=== PATIENT | female | born 1995 | race Caucasian/White ===

== ENCOUNTER 2024-09-14 15:50 | Outpatient (CLI) | payer BC, SELFPAY ==
--- OUTSIDE RECORDS SUMMARY | 2024-09-14 17:29 | XMS_ITS | Data Portability ---
Author Organization [facility] [place] Address [address] [place] [address] Care Team Providers Care Lighter Captain Name Role Phone JALEEL DE LEON Primary Care Provider Assessment Encounter Date Assessment Date Assessment LastModified by Organization Details LastModified Time 04/27/2024 04/27/2024 Annual gynecological exam performed. Patient will come back in a year unless there are new symptoms. [email or web address] Not available 04/27/2024 09:54:50 Plan of Treatment Reminders Order Date Submit Date Provider Last Modified By Organization Details Last Modified Time Details Appointments U/S OB SNEAK PEAK 2024 08:30A M ULTRASOUND Not available Not available Not available OB SCREEN 2024 09:00A M JACK RHODES MD Not available Not available Not available Lab pregnan cy test, urine 2024 025 [place], [address], [place], [address], 08/11/2024 11:22:58 anti-mu llerian hormone (amh), serum 2024 025 [facility] (Lab), [address], [place], [address], 08/04/2024 19:44:17 FSH (follic le-stim ulating hormone ), serum 2024 025 [facility] (Lab), [address], [place], [address], 08/04/2024 19:44:19 estradi ol, serum 2024 025 [facility] (Lab), [address] [place], [address], 08/04/2024 19:44:17 TSH, serum, reflex free T4 2024 025 [facility] (Lab), [address], [place], [address], 08/03/2024 04:08:37 HbA1c (hemogl obin A1c), blood 2024 025 [facility] (Lab), [address] [place], [address], 08/04/2024 19:44:17 vitamin D, 25-hydr oxy, total, serum 2024 025 [facility] (Lab), [address] [place], [address], 08/03/2024 04:08:38 prolact in, serum 2024 025 [facility] (Lab), [address] [place], [address], 08/04/2024 19:44:18 lh (lutein izing hormone ), serum 2024 025 [facility] (Lab), [address] [place], [address], 08/04/2024 19:44:18 17-hydr oxyprog esteron e, QN, serum 2024 025 [facility] (Lab), [address] [place], [address], 08/04/2024 19:44:20 testost erone free/te stoster one total, ratio, serum 2024 025 [facility] (Lab), [address] [facility], [place], [address], 08/04/2024 19:44:19 Referral None recorde d. Procedures None recorde d. Surgeries None recorde d. Imaging US, saline infused uterus 2024 025 OLIVIA Not available 09/13/2024 04:01:44 US, transva ginal 2024 025 [email or web address] [place] [address], [address], [place], [address], 08/15/2024 09:33:26 Medication Orders None recorde d. Patient TargetsNo targets recorded. Patient InstructionsNo instructions recorded. Reason for Referral None Reported. Results Created Date Observation Date Name Description Value Unit Range Abnormal Flag Note LastModifiedBy Organization Detail LastModifiedTime 04/27/20 24 04/27/2024 IMAGE GUIDE D PAP, REFLE X HPV IF ASCUS ONLY image guided Pap, reflex HPV ASCUS only SEE RESULT S BELOW CASE REPOR T: Cytol ogy Gynec ologi beena Repor t Case: [id number] Autho rilonnien g Provi nicole: Genevieve Carranza MD Colle cted: 04/27 1003 Order ing Locat ion: [place] Patho logy Recei heydi: 04/28 0935 First Scree n: Beata Durant, CT Speci men: Scree jim Pap - Image d, Cervi x STATE MENT OF ADEQU ACY: Satis facto ry for evalu ation Trans forma tion zone compo nent prese nt ----- ----- ----- ----- ----- ----- ----- ----- ----- ----- ----- ----- ----- ----- ----- ----- ----- ---- FINAL DIAGN OSIS: Negat roby for Intra epith eliadonay nam or Ming palacios (NIL) . Elect zac yu d by Beata Durant, CT on 05/04 at 11:16 AM ----- ----- ----- ----- ----- ----- ----- ----- ----- ----- ----- ----- ----- ----- ----- ----- ----- ---- COMME NT: This speci men was revie wed by a Cytot echno logis t and/o r Patho logis t (as indic ated in this repor t) after evalu ation using the Thinp rep Imagi ng Syste m. CLINI BEENA INFOR MATIO N: Menst rual Statu s: LMP (if appli cable ): Clini beena Histo ry/Pr eviou s Pap: Type of Neopl emerson (if appli cable ): Signi fican t Clini beena Findi ngs: Other Histo ry: Hormo trent (if appli cable ): PAP EDUCA MARVEL L NOTE: The Pap Test is a scree jim test with an inher ent false negat roby rate. Liqui d-bas ed sampl ing may decre ase, but will not elimi bart, false negat roby resul ts. A negat roby resul t does not precl ude the prese nce and/o r devel opmen t of disea se, since the prese nce of abnor mal cells in the sampl e depen ds on the locat ion of the lesio n and sampl ing techn ique. Artie nued regul ar scree jim is the best metho d of cance r preve ntion . If repor liset cytol ogic findi ng do not corre late with physi beena and/o r histo rical findi ngs, furth er inves tigat ion is recom kendell d, as enmanueli josh toribio nted. Not Available [facility] (Lab) [address], [place], [address], 05/04/2024 12:19:59 07/27/19 25 07/27/2024 HEMOG LOBIN A1C hemoglobin A1C 5.1 % 4.0-5. 6 The Ameri can Diabe smitha Assoc iatio n recom mends that a prima ry goal of thera py shiv d be a HBA1C of < 7% and that physi cians shoul d reeva luate the treat ment regim en in patie nts with HBA1C value s consi stent ly > 8%. <5.7% Salome l 5.7 - 6.4% Incre ased risk for diabe smitha >=6.5 % Diagn ostic of diabe smitha <7.0% Goal of thera py >8.0% Actio n sugge sted Not Available [facility] (Lab) [address], [place], [address], 08/04/2024 19:44:16 07/27/19 25 07/27/2024 ANTIM ULLER ANA HORMO NE (AMH) anti-mulleri an hormone (amh) 8.85 NG/mL Femal e Refer ence Range s 20-24 years : 1.22 - 11.70 ng/mL 25-29 years : 0.89 - 9.85 ng/mL 30-34 years : 0.58 - 8.13 ng/mL 35-39 years : 0.15 - 7.49 ng/mL 40-44 years : 0.03 - 5.47 ng/mL The follo wing resul ts were obtai sheree with the Elecs ys assay . Resul ts from assay s of other manuf actur es canno t be used inter [facility] ably. Not Available [facility] (Lab) [address] [facility], [place], [address], 08/04/2024 19:44:17 07/27/19 25 07/27/2024 ESTRA DIOL estradiol 221.0 pg/mL This assay was perfo rmed using [employer] ratio n reage nts and test kits. Value s obtai sheree with other assay metho ds or kits canno t be used inter [facility] eably . Femal e Estra diol Range s: Folli cular phase 12.4- 233 pg/mL Ovula tion phase 41.0- 398 pg/mL Lutea l phase 22.3- 341 pg/mL Postm enopa usal <5-13 8 pg/mL Healt hy Pregn ant Women 1st Trime ster 154-3 243 pg/mL 2nd Trime ster 1561- 20350 pg/mL 3rd Trime ster 8525- >3000 0 pg/mL Not Available [facility] (Lab) [address] [place], [address], 08/04/2024 19:44:17 07/27/19 25 07/27/2024 PROLA CTIN prolactin, total 13.50 NG/mL 4.79-2 3.30 This assay was perfo rmed using [employer] ratio n reage nts and test kits. Value s obtai sheree with other assay metho ds or kits canno t be used inter [facility] . Not Available [facility] (Lab) [address] [place], [address], 08/04/2024 19:44:18 07/27/19 25 07/27/2024 LH (LUTE NIZIN G HORMO NE) LH 17.7 mIU/m L This assay was perfo rmed using [employer] ratio n reage nts and test kits. Value s obtai sheree with other assay metho ds or kits canno t be used inter [facility] . Femal es Mid-F ollic ular: 2.4-1 2.6 mIU/m L Mid-C ycle: 14.0- 95.6 mIU/m L Mid-L uteal : 1.0-1 1.4 mIU/m L Postm enopa use: 7.7-5 8.5 mIU/m L Not Available [facility] (Lab) [address] [place], [address], 08/04/2024 19:44:18 07/27/19 25 07/27/2024 FSH FSH 5.6 mIU/m L This assay was perfo rmed using [employer] ratio n reage nts and test kits. Value s obtai sheree with other assay metho ds or kits canno t be used inter [facility] . Femal es Folli cular : 3.5-1 2.5 mIU/m L Ovula tion: 4.7-2 1.5 mIU/m L Lutea l: 1.7-7 .7 mIU/m L Postm enopa use: 25.8- 134.8 mIU/m L Not Available [facility] (Lab) [address], [place], [address], 08/04/2024 19:44:19 07/27/1907/27/2024 TESTO STERO NE, FREE( DIALY SIS) AND TOTAL (LC/M S/MS) testosterone , total 52 NG/dL 2-45 high For addit ional richard barnett e refer to http: //leslie nam.que stdia gnost ics.c om/fa q/ Total Testo stero neLCM SMSFA Q165 (This link is being provi ded for infoamanda brink/ educa marvel l purpo ses only. ) This test was devel oped and its elena tical perfo rmanc e chuck cteri stics have been deter mined by [employer] David ls [facility], [place]. It has not been clear ed or appro heydi by the U.S. Food and Drug Admin istra tion. This assay has been valid ated pursu ant to the CLIA regul ation s and is used for clini beena purpo ses. Not Available [facility] (Lab) [address], [place], [address], 08/04/2024 19:44:19 07/27/19 25 07/27/2024 TESTO STERO NE, FREE( DIALY SIS) AND TOTAL (LC/M S/MS) testosterone , free 4.3 pg/mL 0.1-6. 4 This test was devel oped and its elena tical perfo rmanc e chuck cteri stics have been deter mined by [employer] David [employer] [place], [place]. It has not been clear ed or appro heydi by the U.S. Food and Drug Admin istra tion. This assay has been valid ated pursu ant to the CLIA regul ation s and is used for clini beena purpo ses. Perfo rming Organ izati on Infor mat n: Site ID: [id number] Name: [employer] carroll walls David aldana Addre ss: [id number] [facility] [place], [place] Direc tor: Eleazar Vásquez MD PhD Not Available [facility] (Lab) [address] [place], [address], 08/04/2024 19:44:19 07/27/19 25 07/27/2024 17-OH PROGE STERO NE 17-hydroxypr ogesterone, lc/MS/MS 72 NG/dL Adult Femal e Refer ence Range s for 17-Hy droxy proge stero ne: Pre-M enopa usal Mid Folli cular : 23-10 2 ng/dL Pre-M enopa usal Surge : 67-34 9 ng/dL Pre-M enopa usal Mid Lutea l: 139-4 31 ng/dL Postm enopa usal Phase : < or = 45 ng/dL Pregn valentín: First Trime ster: 78-45 7 ng/dL Secon d Trime ster: 90-35 7 ng/dL Third Trime ster: 144-5 78 ng/dL This test was devel oped and its elena tical perfo rmanc e chuck cteri stics have been deter mined by [employer] carroll s. It has not been clear ed or appro heydi by FDA. This assay has been valid ated pursu ant to the CLIA regul ation s and is used for clini beena purpo ses. Perfo rming Organ izati on Infor mat n: Site ID: [id number] Name: [facility] carroll s/Magdaleno mónica C-S shabnam [place] , Addre ss: [id number] [place] [address] Direc tor: Franci catalan MD,Ph D,KRISTINE Not Available [facility] (Lab) [address] [place], [address], 08/04/2024 19:44:20 08/11/19 25 08/11/2024 pregn valentín test, urine HCG negati ve Not Available [place] [address], [place], [address], 08/11/2024 11:22:43 09/02/19 25 09/02/2024 PROGE STERO NE progesterone 12.10 NG/mL This assay was perfo rmed using [employer] ratio n reage nts and test kits. Value s obtai sheree with other assay metho ds or kits canno t be used inter [facility] eably . Femal e Proge stero ne Range s: Folli cular phase 0.06- 0.89 ng/mL Ovula tion phase 0.12- 12.00 ng/mL Lutea l phase 1.83- 23.90 ng/mL Postm enopa usal <0.05 -0.13 ng/mL Healt hy Pregn ant Women 1st Trime ster 11.0- 44.30 2nd Trime ster 25.40 -83.3 0 3rd Trime ster 58.70 -214. [address] [facility] (Lab) [address], [place], [address], 09/04/2024 23:59:09 08/11/19 25 08/11/2024 US, trans vagin al No observ ation record ed. [email or web address] [place] [address], [place], [address], 08/11/2024 12:37:38 08/11/19 25 08/11/2024 US, trans vagin al No observ ation record ed. [address], [place], [address], 08/15/2024 23:24:32 Result Notes None recorded. Procedures Surgical History Date Name Laterality Status Provider Name and Address Organization Details Recorded Time SIS completed JACK RHODES MD [address], [place], [address], [place] [facility] 08/15/2024 22:58:22 4 Date of Last Pap Smear completed Rosita Bhavesh [facility] 07/27/2024 14:07:04 3 Dilation and Curettage completed Rosita Bhavesh [facility] 04/27/2024 09:48:11 Imaging Results Imaging Date Name Status LastModified by Organization Details LastModified Time 08/11/2024 [facility]inal [email or web address] [address], [place], [address], 08/11/2024 12:37:38 08/11/2024 US, transvaginal completed [email or web address] [address], [place], [address], 08/15/2024 23:24:32 Procedure Notes None recorded. Medical Equipment None Reported. Allergies No known drug allergies Medications Name Sig Start Date Stop Date Status Note LastModified by Organization Details LastModified Time fluconazole 150 mg tablet TAKE ONE TABLET BY MOUTH, IF SYMPTOMS PERSIST TAKE SECOND TABLET AFTER 72 HOURS. 04/27 completed Not Available Not Available Not Available valacyclovi r 1 gram tablet TAKE 1 TABLET BY MOUTH 3 TIMES A DAY FOR 3 DAYS 04/27 completed Not Available Not Available Not Available spironolact one 100 mg tablet TAKE 1 TABLET BY MOUTH EVERY DAY 04/27 completed Not Available Not Available Not Available valacyclovi r 500 mg tablet TAKE TWO TABLETS BY MOUTH TWICE DAILY FOR SEVEN DAYS. 04/27 completed Not Available Not Available Not Available sulfamethox azole 800 mg-trimetho prim 160 mg tablet TAKE 1 TABLET BY MOUTH TWICE A DAY FOR 7 DAYS 04/27 completed Not Available Not Available Not Available letrozole 2.5 mg tablet TAKE 1 TABLET BY MOUTH EVERY DAY FOR 5 DAYS active Not Available Not Available No t Available doxycycline hyclate 100 mg tablet TAKE 1 TABLET BY MOUTH EVERY DAY WITH FOOD 04/27 completed Not Available Not Available Not Available Alive active Not Available Not Available Not Available Arazlo 0.045 % lotion 04/27 completed Not Available Not Available Not Available Vitals Date Recorded Body weight Body mass index (BMI) Body height Systolic blood pressure Diastolic blood pressure Provider Name and Address Organization Details Last Updated DateTime 04/27/2024 49913.92 g 35.5 kg/m2 157.48 cm 139 mm[Hg] 90 mm[Hg] Rosita [facility] 4 09:57:56 Date Recorded Body height Body mass index (BMI) Body weight Systolic blood pressure Diastolic blood pressure Provider Name and Address Organization Details Last Updated DateTime 07/27/2024 157.48 cm 35.3 kg/m2 82374.33 g 134 mm[Hg] 98 mm[Hg] [facility] 5 14:06:39 Social History Question Answer Notes LastModified by Organizat ion Details LastModified Time What Is Your Level Of Alcohol Consumption? Moderate [email or web address] Information not available 04/27/2024 How Many Years Have You Consumed Alcohol? 7 [email or web address] Information not available 04/27/2024 Are You Blind Or Do You Have Difficulty Seeing? No [email or web address] Information not available 04/27/2024 What Is Your Level Of Caffeine Consumption? Heavy [email or web address] Information not available 04/27/2024 How Much Tobacco Do You Chew? None [email or web address] Information not available 04/27/2024 In The 14 Days Before Symptom Onset, Have You Had Close Contact With A Laboratory-confir med COVID-19 While That Case Was Ill? No [email or web address] Information not available 04/27/2024 In The 14 Days Before Symptom Onset, Have You Had Close Contact With A Person Who Is Under Investigation For COVID-19 While That Person Was Ill? No [email or web address] Information not available 04/27/2024 Have You Been To An Area Known To Be High Risk For COVID-19? No [email or web address] Information not available 04/27/2024 Are You Currently Employed? Yes [email or web address] Information not available 07/27/2024 Are You Deaf Or Do You Have Serious Difficulty Hearing? No [email or web address] Information not available 04/27/2024 What Type Of Diet Are You Following? REGULAR [email or web address] Information not available 04/27/2024 What Is The Highest Grade Or Level Of School You Have Completed Or The Highest Degree You Have Received? 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 Yes [email or web address] Information not available 04/27/2024 Do You Use Protection During Sex? No [email or web address] Information not available 04/27/2024 Do You Use Your Seat Belt Or Car Seat Routinely? Yes Information not available 04/27/2024 Are You Sexually Active? Yes [email or web address] Information not available 07/27/2024 Do You Have Smoke And Carbon Monoxide Detectors In Your Home? Yes [email or web address] Information not available 04/27/2024 How Much Tobacco Do You Smoke? No Information not available 04/27/2024 Do You Feel Stressed (tense, Restless, Nervous, Or Anxious, Or Unable To Sleep At Night)? PB66024-1 [email or web address] Information not available 04/27/2024 Do You Use Any Illicit Or Recreational Drugs? No Information not available 04/27/2024 Do You Use Sunscreen Routinely? Yes [email or web address] Information not available 04/27/2024 Have You Used IV Drugs? No [email or web address] Information not available 04/27/2024 Sex: Unknown Functional Status Question Answer Note LastModified by Organizat ion Details LastModified Time Do you have difficulty walking or climbing stairs? No [email or web address] Information not available 07/27/2024 Are you able to walk? YESWOREST [email or web address] Information not available 04/27/2024 Are you able to care for yourself? Yes [email or web address] Information not available 07/27/2024 Do you have difficulty dressing or bathing? No [email or web address] Information not available 07/27/2024 What is your exercise level? None [email or web address] Information not available 04/27/2024 Mental Status None recorded. Family History Relationship Description Onset Age of this Age Resolved Age Notes LastModified by Organization Details LastModified Time Mother Disorder of thyroid gland [email or web address] Not available 2023 09:48:11 Maternal Aunt Disorder of thyroid gland [email or web address] Not available 2023 09:48:11 Brother Hypercholest erolemia Not available 2023 09:48:11 Paternal Grandfather Heart disease [email or web address] Not available 2023 09:48:11 Medical History Condition Response Anxiety Disorder Y Gynecological History Statement/Question Response Flow Moderate Date of LMP 07/12/2024 On BCP's at Conception? N N Was last menstrual period normal N STIs/STDs N HPV Vaccine Y Duration of Flow (days) 4 Current Control Method None Frequency of Cycle (Q days) 31 Sexually Active? Y None Age of first menstrual cycle 12 Date of Last Pap Smear 04/27/2024 Sexual Problems? N Desired Control Method None LMP Definite N Obstetrics History GPAL:G 1 P 0 0 1 0 Type Value Spontaneous 1 Total 1 Past Encounters Encounter ID Performer Location Encounter Start Date Encounter Closed Date Diagnosis/Indication Diagnosis SNOMED-CT Code Diagnosis ICD10 Code Diagnosis Note [id number] JACK RHODES MD [place] [address] [address] 04/27/2024 09:42:19 04/27/2024 10:49:14 Gynecologic examination 04474586 Z01.419 [facility] woman care- Cervical cancer screening: Pap smear obtained today, will follow up on the results with the patient as they become available- Breast cancer screening: mammogram not indicated- Colon cancer screening: does not qualify- HPV immunizati on: received- STD testing: declined- hereditary cancer screening: does not qualify for testing- discussed PNV while TTC; if no in 1 year could consider workup [id number] JACK RHODES MD [place] [address] [address] 07/27/2024 13:56:24 07/27/2024 14:53:18 Irregular periods 85709892 N92.6 - Differenti al diagnosis of cause of infertilit y includes: oligoovula tion, male factor, structural - We discussed the potential causes of infertilit y and rationale behind testing. We also discussed her reproducti ve potential in the context of her age as well as the risk of aneuploidy .- We discussed her reproducti ve potential in the context of her BMI which is 35. We reviewed that given her BMI >25 her natural fertility could be improved by even just a 5% wt loss.- The patient is asked to complete the following diagnostic work up to include:-- TSH, A1C, Vitamin D, PRL, LH, 17OHP, AMH, FSH and estradiol- - Transvagin al ultrasound with SIS for endometria l cavity assessment , AFC and repeat for dominant follicle- The patient was asked to have her collect a semen analysis.- Discussed the fertile time of the cycle and options for tracking ovulation, including ovulation predictor kits and basal body temperatur e.-- Discussed timed intercours e every other day starting on Day 10 of period through to the next period.-- Discussed using LH surge kits, usually accurate and would recommend intercours e that day and the next day, then can wait until next cycle.-- Discussed ovulation induction would be considered only after behavioral interventi ons were implemente d and after partner completes semen analysis.- Following the return of these test results she is asked to return to the office for further discussion of reproducti ve planning and treatment options [id number] Mary Loyd [place] [address] [address] 08/11/2024 09:26:52 08/11/2024 12:39:53 Female infertility 7340927 N97.9 Z31.9 [id number] JACK RHODES MD [place] [address] [address] 08/11/2024 09:27:06 08/15/2024 10:55:38 Screening procedure 95623926 Z13.9 Irregular periods 098472 07 N92.6 - Differenti al diagnosis of cause of infertilit y includes: oligoovula tion, male factor, structural - We discussed the potential causes of infertilit y and rationale behind testing. We also discussed her reproducti ve potential in the context of her age as well as the risk of aneuploidy .- We discussed her reproducti ve potential in the context of her BMI which is 35. We reviewed that given her BMI >25 her natural fertility could be improved by even just a 5% wt loss.-Labw ork significan t for elevated AMH and testostero ne-- Transvagin al ultrasound demonstrat es normal endometria l cavity however enlarged ovaries- Husbands semen analysis wnl- Workup c/w PCOS; infertilit y likely 2/2 anovulatio n- recommend initiation of letrozole cycle with next menstrual cycle; discussed 5% risk of multiple gestation- patient voices understand ing, will call clinic with CD1 Health Concerns Section Related Observation LastModified by Organization Detai ls LastModified Time None Recorded Concern Status LastModified by Organization Details LastModified Time None Recorded Advance Directives Directive None Recorded Payers Encounter Date Sequence Insurance Name Policy Number Policy Garcia Covered Member ID Garcia Member ID Guarantor Name 04/27/2024 1 [place] [id number] Tito Tamayo [id number] Leelee Tamayo 07/27/2024 1 [place] [id number] Tito Tamayo [id number] Leelee Bonillamers 08/11/2024 1 [place] [id number] Tito Tamayo [id number] Leelee Tamayo 08/11/2024 1 [place] [id number] Tito Tamayo [id number] Leelee Tamayo Notes Date Note Type Note Provider Name and Address Organization Details Recorded Time 04/27/2024 text/html Presents today f or her annual well-woman exam. Denies abnormal vaginal discharge. She is sexually active and denies dyspareunia. She is trying to conceive, has been actively trying since December. She has not noticed any changes or masses in her breasts. LMP10/11/24. Periods are Q31 days and last 6 days. Flow is moderate to heavy, no intermenstrual spotting. Had a D&C last year for missed miscarriage at 6 weeks. No other PMH/PSH. JACK RHODES MD [address], [place], [address], [place] [facility] 04/27/2024 10:49:02 07/27/2024 text/html Presents today f or discussion of infertility. She and her partner have been actively been trying to conceive 7 months. They have used the following methods to help conceive: cycle tracking, about to start OPKs. The patient reports she has previously had regular menstrual periods, however has been abnormal since April. 39 day cycle April-May, 42 day cycle in May-June. LMP 07/12/24, two weeks later than expected, very light. Bleeding prior to that cycle was extremely. She denies a history of extremely painful periods. Previous history includes: miscarriage in 04/2023, did not use any tracking methods or other fertility method. D&C for resolution of . He has not fathered children from previous relationships. He denies a history of childhood illnesses or cancers. He denies family history of autism/MR and infertility. He has not completed a semen analysis. JACK RHODES MD [address], [place], [address], [facility] 07/27/2024 14:52:05 08/11/2024 text/html Patient presents for SIS. JACK RHODES MD [address], [place], [address], [facility] 08/15/2024 23:03:34 OBGyn Episode Ob Episode Information Episode Created Date Number of Fetuses Patient Bloodtype Patient rh Status Prepregnancy Weight lbs Domestic Partner Domestic Partner Phone Father Name [employer] Law Clerk Status 04/27/20 24 1 CLOSED Fetus Data First Name Last Name Admitted to NICU Weight (g) Sex Living Outcome Pediatric Complications Fetus ID Race Codes Race Delivery Type , Spontane ous [id number] Harsh Calculation Initial Harsh Date Initial Exam Date Initial Exam Provider Initial Ultrasound Date Last Menstrual Period Date Ultra Sound Weeks Gestation 0 Eighteen To Twenty Week Harsh Update Ultra Sound Date Fundal Height At Umbil Quickening Date Ultra Sound Latest Weeks Gestation Final Harsh Confirmed By Final Harsh Confirmed Date Final Harsh Date Ultra Sound Latest Days Gestation 0 0 Menstrual History Last Menstrual Date Menses Monthly On Bcp Conception Prior Menses Frequency Hcg Plus Date Menarche Onset Age Delivery Information Delivery Date Delivery Type Labor Anesthesia Weeks Gestation Incision Type Labor Labor Length Hrs Delivered By Post Complications Tubal Sterilization Discharge Date Comments 3 Discharge Information Feeding Method Contraceptive Method Maternal HG B and HCT Levels
--- OUTSIDE RECORDS SUMMARY | 2024-09-14 17:29 | XMS_ITS | Clinical Summary ---
Author Organization [facility] Address [address] [place] [address] Care Team Providers Care Biomedical Equipment Tech Name Role Phone Tari Kennedy NP Primary Care Provider [phone] Allergies No known active allergies Medications No known medications Active Problems Problem Noted Date Diagnosed Date Missed ([facility]) 06/01/2023 Social History Tobacco Use Types Packs/Day Years Used Date Smoking Tobacco: Never Smokeless Tobacco: Never Tobacco Cessation:Counseling Given: Not Answered Alcohol Use Standard Drinks/Week Comments Yes 0 (1 standard drink = 0.6 oz pur e alcohol) occ Comments No Sex and Gender Information Value Date Recorded Sex Assigned at Not on file Legal Sex Female 6:46 PM CDT Gender Identity Not on file Sexual Orientation Not on file Last Filed Vital Signs Vital Sign Reading Time Taken Comments Blood Pressure 110/75 06/01/2023 11:30 AM PAINTER INTERIOR FINISH Pulse 88 06/01/2023 11:15 AM PAINTER INTERIOR FINISH Temperature 36.8 C (98.2 F) 06/01/2023 8:09 AM PAINTER INTERIOR FINISH Respiratory Rate 16 06/01/2023 11:04 AM PAINTER INTERIOR FINISH Oxygen Saturation 98% 06/01/2023 11:29 AM PAINTER INTERIOR FINISH Inhaled Oxygen Concentration - - Weight 81.2 kg (179 lb) 06/01/2023 8:09 AM PAINTER INTERIOR FINISH Height 157.5 cm (5' 2 ) 06/01/2023 8:09 AM PAINTER INTERIOR FINISH Body Mass Index 32.74 06/01/2023 8:09 AM PAINTER INTERIOR FINISH Plan of Treatment Health Maintenance Due Date Last Done Comments Cervical Cancer Screening Pap Smear (Age 21 to 29) Every 3 Years 1995 Cervical Cancer Screening 1995 Annual Physical 12/25/1998 Hepatitis C 12/25/2013 DTaP, Tdap and Td Vaccines (6 - Td or Tdap) 12/18/2020 12/18/2010, 02/21/2002, 05/10/1999, Additional history exists COVID-19 Vaccine ( season) 2024 Influenza Adult (#1) 2024 Hepatitis B Vaccines Completed 08/05/1997, 01/25/1996, 01/01/1996 HPV Vaccines Aged Out No longer eligi ble based on patient's age to complete this topic Meningococcal B Vaccine Aged Out No l onger eligible based on patient's age to complete this topic Meningococcal Vaccine Aged Out No cris maylin eligible based on patient's age to complete this topic Pneumococcal Vaccine: Pediatrics (0 to 5 Years) and At-Risk Patients (6 to 64 Years) Aged Out No longer eligible based on patient's age to complete this topic RSV Immunizations Under 20 Months Aged Out No longer eligible based on patient's age to complete this topic Insurance [facility] Advance Directives * Full Code (Latest Code Status on File) Date Activated Date Inactivated Comments 06/01/2023 11:33 AM 06/01/2023 1:59 PM Care Teams Biomedical Equipment Tech Relationship Specialty Start Date End Date Tari Kennedy NP [address] [place] [address] [place] [address] PCP - General Nurse Practitioner Family 05/20/23
[2024-09-14 18:07] LABS: Beta HCG Quantitative 509.18 mIU/ML
== END 2024-09-14 15:51 | disposition home or self-care (01) ==
LOC: ANHLAB 16:02
PROVIDERS: Visit Provider Obstetrics & Gynecology
DX: N91.2 Amenorrhea, unspecified (principal)
CPT/HCPCS: 36415; 84702

== ENCOUNTER 2024-09-16 11:42 | Outpatient (CLI) | payer BC, SELFPAY ==
--- OUTSIDE RECORDS SUMMARY | 2024-09-16 12:33 | XMS_ITS | Data Portability ---
Author Organization [facility] [place] Address [address] [place] [address] Care Team Providers Care Waiter/Waitress Club Name Role Phone JALEEL DE LEON Primary Care Provider Assessment Encounter Date Assessment Date Assessment LastModified by Organization Details LastModified Time 04/27/2024 04/27/2024 Annual gynecological exam performed. Patient will come back in a year unless there are new symptoms. [email or web address] Not available 04/27/2024 09:54:50 Plan of Treatment Reminders Order Date Submit Date Provider Last Modified By Organization Details Last Modified Time Details Appointments U/S OB SNEAK PEAK 2024 08:30A M ULTRASOUND Not available Not available Not available OB SCREEN 2024 09:00A M JACK RHODES MD Not available Not available Not available Lab pregnan cy test, urine 2024 025 [email or web address] [place], [address], [place], [address], 08/11/2024 11:22:58 anti-mu llerian hormone (amh), serum 2024 025 [facility] (Lab), [address], [place], [address], 08/04/2024 19:44:17 FSH (follic le-stim ulating hormone ), serum 2024 025 [facility] (Lab), [address], [place], [address], 08/04/2024 19:44:19 estradi ol, serum 2024 025 [facility] (Lab), [address] [place], [address], 08/04/2024 19:44:17 TSH, serum, reflex free T4 2024 025 [facility] (Lab), [address], [place], [address], 08/03/2024 04:08:37 HbA1c (hemogl obin A1c), blood 2024 025 [facility] (Lab), [address] [place], [address], 08/04/2024 19:44:17 vitamin D, 25-hydr oxy, total, serum 2024 025 [facility] (Lab), [address] [place], [address], 08/03/2024 04:08:38 prolact in, serum 2024 025 [facility] (Lab), [address] [place], [address], 08/04/2024 19:44:18 lh (lutein izing hormone ), serum 2024 025 [facility] (Lab), [address] [place], [address], 08/04/2024 19:44:18 17-hydr oxyprog esteron e, QN, serum 2024 025 [facility] (Lab), [address] [place], [address], 08/04/2024 19:44:20 testost erone free/te stoster one total, ratio, serum 2024 025 [facility] (Lab), [address], [place], [address], 08/04/2024 19:44:19 Referral None recorde d. Procedures None recorde d. Surgeries None recorde d. Imaging US, saline infused uterus 2024 025 [email or web address] Not available 09/13/2024 04:01:44 US, transva ginal 2024 025 [email or web address] [place], [address], [place], [address], 08/15/2024 09:33:26 Medication Orders None recorde d. [...] as enmanueli josh toribio nted. Not Available [facility] (Lab) [address], [place], [address], 05/04/2024 12:19:59 07/27/19 25 07/27/2024 HEMOG LOBIN [...] >8.0% Actio n sugge sted Not Available [facility] (Lab) [address], [place], [address], 08/04/2024 19:44:16 07/27/19 25 07/27/2024 ANTIM ULLER [...] actur es canno t be used inter [facility] ably. Not Available [facility] (Lab) [address], [place], [address], 08/04/2024 19:44:17 07/27/19 25 07/27/2024 ESTRA DIOL estradiol 221.0 pg/mL This assay was perfo rmed using [employer] ratio n reage nts and test kits. Value s obtai sheree with other assay metho ds or kits canno t be used inter [facility] eably . Femal e Estra diol Range s: Folli cular phase 12.4- 233 pg/mL Ovula tion phase 41.0- 398 pg/mL Lutea l phase 22.3- 341 pg/mL Postm enopa usal <5-13 8 pg/mL Healt hy Pregn ant Women 1st Trime ster 154-3 243 pg/mL 2nd Trime ster 1561- 84840 pg/mL 3rd Trime ster 8525- >3000 0 pg/mL Not Available [facility] (Lab) [address] [place], [address], 08/04/2024 19:44:17 07/27/19 25 07/27/2024 PROLA CTIN prolactin, total 13.50 NG/mL 4.79-2 3.30 This assay was perfo rmed using [employer] ratio n reage nts and test kits. Value s obtai sheree with other assay metho ds or kits canno t be used inter [facility] . Not Available [facility] (Lab) [address] [place], [address], 08/04/2024 19:44:18 07/27/19 25 07/27/2024 LH (LUTE NIZIN G HORMO NE) LH 17.7 mIU/m L This assay was perfo rmed using [employer] ratio n reage nts and test kits. Value s obtai sheree with other assay metho ds or kits canno t be used inter [facility] . Femal es Mid-F ollic ular: 2.4-1 2.6 mIU/m L Mid-C ycle: 14.0- 95.6 mIU/m L Mid-L uteal : 1.0-1 1.4 mIU/m L Postm enopa use: 7.7-5 8.5 mIU/m L Not Available [facility] (Lab) [address] [place], [address], 08/04/2024 19:44:18 07/27/19 25 07/27/2024 FSH FSH 5.6 mIU/m L This assay was perfo rmed using [employer] ratio n reage nts and test kits. Value s obtai sheree with other assay metho ds or kits canno t be used inter [facility] . Femal es Folli cular : 3.5-1 2.5 mIU/m L Ovula tion: 4.7-2 1.5 mIU/m L Lutea l: 1.7-7 .7 mIU/m L Postm enopa use: 25.8- 134.8 mIU/m L Not Available [facility] (Lab) [address], [place], [address], 08/04/2024 19:44:19 07/27/1907/27/2024 TESTO STERO NE, FREE( [...] cteri stics have been deter mined by [employer] David [facility] [employer] [facility], [place]. It has not been clear ed or appro heydi by the U.S. Food and Drug Admin istra tion. This assay has been valid ated pursu ant to the CLIA regul ation s and is used for clini beena purpo ses. Not Available [facility] (Lab) [address], [place], [address], 08/04/2024 19:44:19 07/27/19 25 07/27/2024 TESTO STERO NE, FREE( DIALY SIS) AND TOTAL (LC/M S/MS) testosterone , free 4.3 pg/mL 0.1-6. 4 This test was devel oped and its elena tical perfo rmanc e chuck cteri stics have been deter mined by [employer] David [employer], [place]. It has not been clear ed or appro heydi by the U.S. Food and Drug Admin istra tion. This assay has been valid ated pursu ant to the CLIA regul ation s and is used for clini beena purpo ses. Perfo rming Organ izati on Infor mat n: Site ID: [id number] Name: [employer] carroll walls David aldana Addre ss: [id number] [facility] [place] Direc tor: Eleazar Vásquez MD PhD Not Available [facility] (Lab) [address] [place], [address], 08/04/2024 19:44:19 07/27/19 25 07/27/2024 17-OH PROGE [...] cteri stics have been deter mined by [employer] carroll s. It has not been clear ed or appro heydi by FDA. This assay has been valid ated pursu ant to the CLIA regul ation s and is used for clini beena purpo ses. Perfo rming Organ izati on Infor mat n: Site ID: [id number] Name: [facility] carroll s/Magdaleno mónica C-S shabnam [place] , Addre ss: [id number] [place] [address] Direc tor: Franci catalan MD,Ph D,KRISTINE Not Available [facility] (Lab) [address] [place], [address], 08/04/2024 19:44:20 08/11/19 25 08/11/2024 pregn valentín test, urine HCG negati ve Not Available [place] [address], [place], [address], 08/11/2024 11:22:43 09/02/19 25 09/02/2024 PROGE STERO [...] Trime ster 58.70 -214. 00 Not Available [facility] (Lab) [address], [place], [address], 09/04/2024 23:59:09 08/11/19 25 08/11/2024 US, trans vagin al No observ ation record ed. [email or web address] [place] [address], [place], [address], 08/11/2024 12:37:38 08/11/19 25 08/11/2024 US, trans vagin al No observ ation record ed. [email or web address] [address], [place], [address], 08/15/2024 23:24:32 Result Notes None recorded. Procedures Surgical History Date Name Laterality Status Provider Name and Address Organization Details Recorded Time SIS completed JACK RHODES MD [address], [place], [address], [place] [facility] 08/15/2024 22:58:22 4 Date of Last Pap Smear completed Rosita Bhavesh [facility] 07/27/2024 14:07:04 3 Dilation and Curettage completed Rosita Bhavesh [facility] 04/27/2024 09:48:11 Imaging Results Imaging Date Name Status LastModified by Organization Details LastModified Time 08/11/2024 [facility]inal [email or web address] [address], [place], [address], 08/11/2024 12:37:38 08/11/2024 US, transvaginal completed [email or web address] [address], [place], [address], 08/15/2024 23:24:32 Procedure Notes None recorded. Medical [...] Address Organization Details Last Updated DateTime 04/27/2024 65826.92 g 35.5 kg/m2 157.48 cm 139 mm[Hg] 90 mm[Hg] Rosita [facility] 4 09:57:56 Date Recorded Body height Body mass index (BMI) Body weight Systolic blood pressure Diastolic blood pressure Provider Name and Address Organization Details Last Updated DateTime 07/27/2024 157.48 cm 35.3 kg/m2 26668.33 g 134 mm[Hg] 98 mm[Hg] [facility] 5 14:06:39 Social History Question Answer Notes LastModified by Organizat ion Details LastModified Time What Is Your Level Of Alcohol Consumption? Moderate [email or web address] Information not available 04/27/2024 How Many Years Have You Consumed Alcohol? 7 [email or web address] Information not available 04/27/2024 Are You Blind Or Do You Have Difficulty Seeing? No Information not available 04/27/2024 What Is Your Level Of Caffeine Consumption? Heavy [email or web address] Information not available 04/27/2024 How Much Tobacco Do You Chew? None [email or web address] Information not available 04/27/2024 In The 14 Days Before Symptom Onset, Have You Had Close Contact With A Laboratory-confir med COVID-19 While That Case Was Ill? No [email or web address] Information not available 04/27/2024 In The 14 Days Before Symptom Onset, Have You Had Close Contact With A Person Who Is Under Investigation For COVID-19 While That Person Was Ill? No [email or web address] Information not available 04/27/2024 Have You Been To An Area Known To Be High Risk For COVID-19? No Information not available 04/27/2024 Are You Currently Employed? Yes [email or web address] Information not available 07/27/2024 Are You Deaf Or Do You Have Serious Difficulty Hearing? No Information not available 04/27/2024 What Type Of Diet Are You Following? REGULAR [email or web address] Information not available 04/27/2024 What Is The Highest Grade Or Level Of School You Have Completed Or The Highest Degree You Have Received? 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 Yes [email or web address] Information not available 04/27/2024 Do You Use Protection During Sex? No [email or web address] Information not available 04/27/2024 Do You Use Your Seat Belt Or Car Seat Routinely? Yes [email or web address] Information not available 04/27/2024 Are You Sexually Active? Yes [email or web address] Information not available 07/27/2024 Do You Have Smoke And Carbon Monoxide Detectors In Your Home? Yes Information not available 04/27/2024 How Much Tobacco Do You Smoke? No [email or web address] Information not available 04/27/2024 Do You Feel Stressed (tense, Restless, Nervous, Or Anxious, Or Unable To Sleep At Night)? [id number] [email or web address] Information not available 04/27/2024 Do You Use Any Illicit Or Recreational Drugs? No [email or web address] Information not available 04/27/2024 Do You Use Sunscreen Routinely? Yes [email or web address] Information not available 04/27/2024 Have You Used IV Drugs? No [email or web address] Information not available 04/27/2024 Sex: Unknown Functional Status Question Answer Note LastModified by Organizat ion Details LastModified Time Do you have difficulty walking or climbing stairs? No [email or web address] Information not available 07/27/2024 Are you able to walk? YESWOREST [email or web address] Information not available 04/27/2024 Are you able to care for yourself? Yes [email or web address] Information not available 07/27/2024 Do you have difficulty dressing or bathing? No [email or web address] Information not available 07/27/2024 What is your exercise level? None [email or web address] Information not available 04/27/2024 Mental Status None recorded. Family History Relationship Description Onset Age of this Age Resolved Age Notes LastModified by Organization Details LastModified Time Mother Disorder of thyroid gland [email or web address] Not available 2023 09:48:11 Maternal Aunt Disorder of thyroid gland [email or web address] Not available 2023 09:48:11 Brother Hypercholest erolemia [email or web address] Not available 2023 09:48:11 Paternal Grandfather Heart disease [email or web address] Not available 2023 09:48:11 Medical History Condition [...] SNOMED-CT Code Diagnosis ICD10 Code Diagnosis Note [id number] JACK RHODES MD [place] [address] [address] 04/27/2024 09:42:19 04/27/2024 10:49:14 Gynecologic examination [id number] Z01.419 [facility] woman care- Cervical cancer screening: Pap smear obtained today, will follow up on the results with the patient as they become available- Breast cancer screening: mammogram not indicated- Colon cancer screening: does not qualify- HPV immunizati on: received- STD testing: declined- hereditary cancer screening: does not qualify for testing- discussed PNV while TTC; if no in 1 year could consider workup [id number] JACK RHODES MD [place] [address] [address] 07/27/2024 13:56:24 07/27/2024 14:53:18 Irregular periods [id number] N92.6 - Differenti al diagnosis of cause [...] of reproducti ve planning and treatment options [id number] Mary Loyd [place] [address] [address] 08/11/2024 09:26:52 08/11/2024 12:39:53 Female infertility 6891883 N97.9 Z31.9 [id number] JACK RHODES MD [place] [address] [address] 08/11/2024 09:27:06 08/15/2024 10:55:38 Screening procedure [id number] Z13.9 Irregular periods 156970 07 N92.6 - Differenti al diagnosis of [...] ID Guarantor Name 04/27/2024 1 [place] [id number] Tito Tamayo [id number] 62 Leelee Tamayo 07/27/2024 1 [place] [id number] Tito Tamayo [id number] 62 Leelee [address] 08/11/2024 1 [place] [id number] Tito Tamayo [id number] 62 Leelee Tamayo 08/11/2024 1 [place] [id number] Tito Tamayo [id number] 62 Leelee Tamayo Notes Date Note Type [...] PMH/PSH. JACK RHODES MD [address], [place], [address], [place] [facility] 04/27/2024 10:49:02 07/27/2024 text/html Presents today [...] analysis. JACK RHODES MD [address], [place], [address], [facility] 07/27/2024 14:52:05 08/11/2024 text/html Patient presents for SIS. JACK RHODES MD [address], [place], [address], [facility] 08/15/2024 23:03:34 OBGyn Episode Ob Episode Information Episode Created Date Number of Fetuses Patient Bloodtype Patient rh Status Prepregnancy Weight lbs Domestic Partner Domestic Partner Phone Father Name Footwear Sales Coordinator Status 04/27/20 24 1 CLOSED Fetus Data First Name Last Name Admitted to NICU Weight (g) Sex Living Outcome Pediatric Complications Fetus ID Race Codes Race Delivery Type , Spontane ous [id number] Harsh Calculation Initial Harsh Date Initial Exam [...]
--- OUTSIDE RECORDS SUMMARY | 2024-09-16 12:33 | XMS_ITS | Clinical Summary ---
Author Organization [facility] Address [address] [place] [address] Care Team Providers Care Airline Mechanic Name Role Phone Tari Kennedy NP Primary Care Provider [phone] Allergies No known active allergies Medications No known medications Active Problems Problem Noted Date Diagnosed Date Missed ([facility]) 06/01/2023 Social History Tobacco Use Types Packs/Day [...] Comments Blood Pressure 110/75 06/01/2023 11:30 AM TRACK SERVICE WORKER Pulse 88 06/01/2023 11:15 AM TRACK SERVICE WORKER Temperature 36.8 C (98.2 F) 06/01/2023 8:09 AM TRACK SERVICE WORKER Respiratory Rate 16 06/01/2023 11:04 AM TRACK SERVICE WORKER Oxygen Saturation 98% 06/01/2023 11:29 AM TRACK SERVICE WORKER Inhaled Oxygen Concentration - - Weight 81.2 kg (179 lb) 06/01/2023 8:09 AM TRACK SERVICE WORKER Height 157.5 cm (5' 2 ) 06/01/2023 8:09 AM TRACK SERVICE WORKER Body Mass Index 32.74 06/01/2023 8:09 AM TRACK SERVICE WORKER Plan of Treatment Health Maintenance Due Date [...] patient's age to complete this topic Insurance [facility] [[email or web address]] Advance Directives * Full Code (Latest Code Status on File) Date Activated Date Inactivated Comments 06/01/2023 11:33 AM 06/01/2023 1:59 PM Care Teams Airline Mechanic Relationship Specialty Start Date End Date Tari Kennedy NP [address] [place] [address] [place] [address] PCP - General Nurse Practitioner Family 05/20/23
== END 2024-09-16 11:43 | disposition home or self-care (01) ==
PROVIDERS: Visit Provider Obstetrics & Gynecology
DX: N91.2 Amenorrhea, unspecified (principal)
CPT/HCPCS: 36415; 84702

== ENCOUNTER 2025-03-18 17:15 | Observation (INO) | payer BC, SELFPAY ==
[2025-03-18] VITALS (14 sets, daily range): BP systolic 126–144; BP diastolic 69–88; PULSE 81–96; BMI 37.9
--- NOTE | ~2025-03-18 | US_ITS ---
EXAMINATION: US OB BPP wo non-stress DATE: 03/18/2025 21:14 INDICATION: Vaginal bleeding. TECHNIQUE: Real-time pelvic ultrasound was performed. The interpreting radiologist was not present for the study. COMPARISON: None. FINDINGS: There is a single living fetus in breech presentation. The placenta is anterior. There are a few small hypoechoic regions in the placenta. cardiac activity and movement are demonstrated. heart rate is 127 beats per minute (bpm). MESFIN equals 15.95 Biophysical profile performed by the technologist: breathing (30 sec sustained breathing in 30 minutes): 2 out of 2 movement (3 gross body movements in 30 minutes): 2 out of 2 tone (one episode of [id number] limb movement): 2 out of 2 Amniotic fluid pocket (2 cm): 2 out of 2 Total score: 8 out of 8 IMPRESSION: 1. Single living intrauterine in breech presentation with heart rate of 127 [bpm. 2. Placenta is anterior with a few small indeterminate hypoechoic regions within the placenta. Follow-up is recommended. 3. Biophysical profile 8 out of 8. Reviewed, dictated and finalized at location Q. IMPRESSION: 1. Single living intrauterine in breech presentation with heart rate of 127 [bpm. 2. Placenta is anterior with a few small indeterminate hypoechoic regions with in the placenta. Follow-up is recommended. 3. Biophysical profile 8 out of 8.
--- OUTSIDE RECORDS SUMMARY | 2025-03-18 17:22 | XMS_ITS | Clinical Summary ---
Author Organization [facility] Address [address] [place] [address] Care Team Providers Care Carpet Journeyman Name Role Phone Tari Kennedy NP Primary Care Provider [phone] Allergies No known active allergies Medications No known medications Active Problems Problem Noted Date Diagnosed Date Missed ([facility]) 06/01/2023 Social History Tobacco Use [...] Comments Blood Pressure 110/75 06/01/2023 11:30 AM SUPERVISORY TRAINING SPECIALIST Pulse 88 06/01/2023 11:15 AM SUPERVISORY TRAINING SPECIALIST Temperature 36.8 C (98.2 F) 06/01/2023 8:09 AM SUPERVISORY TRAINING SPECIALIST Respiratory Rate 16 06/01/2023 11:04 AM SUPERVISORY TRAINING SPECIALIST Oxygen Saturation 98% 06/01/2023 11:29 AM SUPERVISORY TRAINING SPECIALIST Inhaled Oxygen Concentration - - Weight 81.2 kg (179 lb) 06/01/2023 8:09 AM SUPERVISORY TRAINING SPECIALIST Height 157.5 cm (5' 2) 06/01/2023 8:09 AM SUPERVISORY TRAINING SPECIALIST Body Mass Index 32.74 06/01/2023 8:09 AM SUPERVISORY TRAINING SPECIALIST Plan of Treatment Health Maintenance Due Date Last Done Comments Cervical Cancer Screening Pap Smear (Age 21 to 29) Every 3 Years 1995 Cervical Cancer Screening 1995 Annual Physical 12/25/1998 Hepatitis C 12/25/2013 DTaP, Tdap and Td Vaccines (6 - Td or Tdap) 12/18/2020 12/18/2010, 02/21/2002, 05/10/1999, Additional history exists HPV Vaccines (1 - 3-dose SCDM series) 12/25/2022 COVID-19 Vaccine ( season) 2025 Hepatitis B Vaccines Completed 08/05/1997, 01/25/1996, 01/01/1996 Meningococcal B Vaccine Aged Out No l onger eligible based on patient's age to complete this topic Meningococcal Vaccine Aged Out No cris maylin eligible based on patient's age to complete this topic Pneumococcal Vaccine: Pediatrics (0 to 5 Years) and At-Risk Patients (6 to 49 Years) Aged Out No longer eligible based on patient's age to complete this topic RSV Immunizations Under 20 Months Aged Out No longer eligible based on patient's age to complete this topic Insurance [facility] Advance Directives * Full Code (Latest Code Status on File) Date Activated Date Inactivated Comments 06/01/2023 11:33 AM 06/01/2023 1:59 PM Care Teams Carpet Journeyman Relationship Specialty [place] [address] [place] [address] [place] [id number] PCP - General Nurse Practitioner Family 05/20/23
--- NOTE | 2025-03-18 17:37 | OBADM ---
This patient, Leelee Tamayo, admitted to the OB room OB Post 116 for observation. Patient/family oriented to hospital policies and general routines including ID bracelet, bed and alarms, visiting hours, pain management, procedures, bathroom and other care routines, personal items, smoking policy, room service/diet, and visiting hours. Patient/Family are encouraged to report perceived risks to care and to ask questions if they do not understand what they are told or what they should do.
--- NOTE | 2025-03-18 21:37 | PC.NURSE ---
Call placed to Dr. Méndez, reported US results, FHR, CTX, Vitals. Order to d/c pt home undelivered in stable condition. Pt to follow up with Dr. Méndez thursday.
--- NOTE | 2025-03-18 21:58 | PC.NURSE ---
Pt discharged home undelivered in stable condition per order from Dr. Méndez. Discharge instructions explained and given to pt, pt stated understanding. Per Dr. Méndez, pt to follow up Thursday morning @ 0900 in his office. Pt stated understanding, all questions and concerns answered. Pt ambulated of out department with all belongings. S.O @ pt side.
--- NOTE | 2025-03-18 22:02 | PC.NURSE ---
Pt discharged home undelivered in stable condition per order from Dr. Méndez. Discharged instructions reviewed and given to pt. Pt instructed per Dr. Méndez to return to his office @ 0900 on Thursday. Pt stated understanding, all questions and concerns answered. Pt ambulated out of department with all belongings. S.O @ pt side.
--- NOTE | 2025-04-11 10:19 | PM.OBTRLD ---
OB - Triage/Final Diagnosis Visit Information Comments/Additional reasons for admission: I have assessed the risk for this patient, Leelee Tamayo, and determined that she would benefit from observation care. Final Diagnosis (1) Vaginal bleeding during : Code(s): O46.90 - Antepartum hemorrhage, unspecified, unspecified trimester Status: Acute
== END 2025-03-18 21:58 | disposition home or self-care (01) ==
PROVIDERS: Admitting Provider Obstetrics & Gynecology; Visit Provider Obstetrics & Gynecology
DX: O46.93 Antepartum hemorrhage, unspecified, third trimester (principal); Z3A.31 31 weeks gestation of pregnancy
CPT/HCPCS: 76819; G0378; G0379

== ENCOUNTER 2025-05-04 13:33 | Outpatient (CLI) | payer BC, SELFPAY ==
[2025-05-04] VITALS (11 sets, daily range): BP systolic 132–155; BP diastolic 78–99; PULSE 79–89; BMI 38.0
[2025-05-04 14:17] LABS: Add Urine Microscopic? NO; Appearance Urine Clear (Clear); Glucose Urine UA Negative (Negative); Hematocrit 30.8 % (37.0-47.0); Hemoglobin 9.8 g/dL (12.0-15.0); Immature Granulocyte Percent A 0.4 % (0-0.5); Leukocyte Esterase Ur Negative LEU/UL (Negative); Lymphocytes Absolute Auto 1.69 K/mm3 (0.9-3.2); Mean Corpuscular HGB Conc 31.8 g/dl (32-36); Mean Corpuscular Hemoglobin 25.1 pg (26-34); Mean Corpuscular Volume 78.8 fl (80-100); Nitrate Urine Negative (Negative); Nucleated Red Blood Cells Absolute Auto 0.000 K/mm3 (0.0-0.012); Nucleated Red Blood Cells Perc 0.0 % (0.0-0.2); Platelet Count Result 192 k/mm3 (150-375); Red Blood Count 3.91 M/mm3 (4.2-5.4); Specific Grav Ur 1.008 (1.001-1.035); White Blood Count 7.9 K/mm3 (4.5-10.0)
[2025-05-04 14:30] LABS: Alanine Aminotransferase 13 U/L (6-35); Albumin Level 3.5 g/dL (3.5-5.1); Alkaline Phosphatase 126 U/L (38-126); Anion Gap 7 mmol/L (4-12); Aspartate Amino Transferase 19 U/L (14-36); Bilirubin,Total 0.3 mg/dL (0.2-1.3); Blood Urea Nitrogen 5 mg/dL (7-17); Calcium 8.8 mg/dL (8.4-10.2); Carbon Dioxide 20 mmol/L (22-30); Chloride 106 mmol/L (98-107); Estimated CRCL calculation 134 ml/min; Estimated Glomerular Filt Rate > 60; Glucose 100 mg/dL (65-110); Potassium 3.9 mmol/L (3.4-5.0); Sodium 133 mmol/L (137-145); Total Protein 6.7 g/dL (6.3-8.2); Uric Acid 4.7 mg/dL (2.5-7.5)
--- OUTSIDE RECORDS SUMMARY | 2025-05-04 14:38 | XMS_ITS | Data Portability ---
Author Organization '[facility] [place] Address [address] [place] [address] [place] [address] Care Team Providers Care Senior Engineering Team Leader Name Role Phone JALEEL DE LEON Primary Care Provider Assessment No assessment recorded. Plan of Treatment Reminders Order Date Submit Date Provider Last Modified By Organization Details Last Modified Time Details Appointments U/S OB BPP 2024 09:00A M ULTRASOUND Not available Not available Not available NST 2024 09:30A M NST SCHEDULE Not available Not available Not available OB ROUTINE 2024 10:00A M JACK RHODES MD Not available Not available Not available INDUCTI ON 2024 04:00P M JACK RHODES MD Not available Not available Not available U/S OB BPP 2024 03:30P M ULTRASOUND Not available Not available Not available NST 2024 04:00P M NST SCHEDULE Not available Not available Not available OB ROUTINE 2024 04:30P M JACK RHODES MD Not available Not available Not available Lab None recorde d. Referral None recorde d. Procedures None recorde d. Surgeries None recorde d. Imaging non-str ess test 2024 025 [email or web address] [place], [address], [place], [address], 05/02/2025 15:38:27 US, obstetr ic, biophys ical profile + non-str ess test 2024 025 [email or web address] [place], [address], [place], [address], 05/01/2025 16:55:00 non-str ess test 2024 OLIVIA [place], [address], [place], [address], 04/25/2025 18:05:03 US, obstetr ic, follow- up 2024 025 [address], [place], [address], 04/25/2025 19:45:15 US, obstetr ic, biophys ical profile + non-str ess test 2024 025 [address], [place], [address], 04/25/2025 19:45:15 Medication Orders None recorde d. Patient TargetsNo targets recorded. Patient InstructionsNo instructions recorded. Reason for Referral None Reported. Results Created Date Observation Date Name Description Value Unit Range Abnormal Flag Note LastModifiedBy Organization Detail LastModifiedTime 04/26/2004/26/2025 CULTU RE: GROUP B STREP SCREE N, REFLE X SUSCE PTIBI LITY result report SEE RESULT S BELOW Test: Cultu re: Group B Strep , Refle x Susce ptibi lity ([facility] ) Speci men Sourc e: Vagin a/Rec lupe Speci men Type: Vagin al/Re ctal Speci men Date: 04/26 1341 Resul t Date: 04/29 1451 Resul t Statu s: Final resul t Abnor mal: No Resul ting Lab: [facility] [address] [facility] [address] Tel: CULTU RE ----- ----- ----- --- No Group B strep isola liset at 2 days (palmer ctive broth enhan cemen t) Not Available [facility] (Lab) [address], [place], [address], 04/29/2025 15:53:56 03/27/2003/27/2025 US, obste tric, follo w-up No observ ation record ed. [email or web address] [place] [address], [place], [address], 03/27/2025 13:07:17 03/27/20 25 03/27/2025 US, obste tric, bioph ysica l profi le + non-s tress test No observ ation record ed. [email or web address] [place] [address], [place], [address], 03/27/2025 13:07:42 03/27/20 25 03/27/2025 US, obste tric, follo w-up No observ ation record ed. [email or web address] [address] [facility], [place], [address], 03/27/2025 10:39:08 03/27/2003/27/2025 non-s tress test No observ ation record ed. [email or web address] [place] [address], [place], [address], 03/27/2025 11:15:38 03/27/20 non-s tress test No observ ation record ed. [email or web address] [place] [address], [place], [address], 03/27/2025 11:06:00 04/03/20 25 04/03/2025 US, obstjorge tric, bioph ysica l profi le + non-s tress test No observ ation record ed. [email or web address] [place] [address], [place], [address], 04/03/2025 18:27:14 04/03/20 25 04/03/2025 US, obste tric, bioph ysica l profi le + non-s tress test No observ ation record ed. [address], [place], [address], 04/04/2025 18:59:15 04/03/20 25 04/03/2025 non-s tress test No observ ation record ed. OLIVIA [place] [address], [place], [address], 04/04/2025 10:33:24 04/03/20 25 non-s tress test No observ ation record ed. [email or web address] [place] [address], [place], [address], 04/03/2025 11:35:14 04/10/20 25 04/11/2025 US, obste tric, bioph ysica l profi le + non-s tress test No observ ation record ed. [email or web address] [place] [address], [place], [address], 04/11/2025 12:31:31 04/10/2004/10/2025 US, obste tric, bioph ysica l profi le + non-s tress test No observ ation record ed. [email or web address] [address], [place], [address], 04/10/2025 14:16:39 04/10/20 25 04/10/2025 non-s tress test No observ ation record ed. [email or web address] [place] [address], [place], [address], 04/10/2025 14:16:00 04/10/20 25 non-s tress test No observ ation record ed. [place] [address], [place], [address], 04/10/2025 14:16:00 04/18/2004/18/2025 US, obste tric, bioph ysica l profi le + non-s tress test No observ ation record ed. [email or web address] [place] [address], [place], [address], 04/18/2025 18:03:02 04/18/2004/18/2025 US, obste tric, bioph ysica l profi le + non-s tress test No observ ation record ed. [address], [place], [address], 04/21/2025 01:47:31 04/18/2004/18/2025 non-s tress test No observ ation record ed. [email or web address] [place] [address], [place], [address], 04/19/2025 16:02:09 04/18/20 non-s tress test No observ ation record ed. [email or web address] [place] [address], [place], [address], 04/18/2025 17:19:05 04/25/2004/25/2025 US, obste tric, follo w-up No observ ation record ed. [email or web address] [place] [address], [place], [address], 04/25/2025 18:00:59 04/25/2004/25/2025 US, obste tric, bioph ysica l profi le + non-s tress test No observ ation record ed. [email or web address] [place] [address], [place], [address], 04/25/2025 18:00:41 04/25/2004/25/2025 US, obste tric, follo w-up No observ ation record ed. [email or web address] [address], [place], [address], 04/25/2025 19:59:27 04/25/2004/26/2025 non-s tress test No observ ation record ed. [email or web address] [place] [address], [place], [address], 04/26/2025 12:42:17 04/25/20 non-s tress test No observ ation record ed. [email or web address] [place] [address], [place], [address], 04/25/2025 18:05:07 05/01/2005/01/2025 US, obste tric, bioph ysica l profi le + non-s tress test No observ ation record ed. [email or web address] [place] [address], [place], [address], 05/01/2025 11:27:23 05/01/2005/01/2025 US, obste tric, bioph ysica l profi le + non-s tress test No observ ation record ed. [email or web address] [address], [place], [address], 05/01/2025 21:15:25 05/02/2005/02/2025 non-s tress test No observ ation record ed. OLIVIA [place] [address], [place], [address], 05/02/2025 17:00:00 05/02/2005/01/2025 non-s tress test No observ ation record ed. [email or web address] Not Available 2024 15:39:46 05/02/20 non-s tress test No observ ation record ed. [email or web address] Not Available 2024 15:39:46 Result Notes None recorded. Problems Name Problem SNOMED Code Status Onset Date Resolution Date Notes Provider Name and Address Organization Details Recorded Time 00934218 Active 2024 [email or web address] 10:[facility]46 Chronic hypertens ion complicat ing AND/OR reason for care during 27197962 Active 2024 - elevated BP in office at 24 weeks, asymptomat ic - on chart review, multiple elevated BP outside of - baseline labs ordered - plan for 32 week testing JACK RHODES MD [address], [place], [address], [facility] 5 11:42:33 Problem Notes None recorded. Procedures Surgical History Date Name Laterality Status Provider Name and Address Organization Details Recorded Time 5 SIS completed JACK RHODES MD [address], [place], [address], [facility] 08/15/2024 22:58:22 4 Date of Last Pap Smear completed [facility] 07/27/2024 14:07:04 3 Dilation and Curettage completed [facility] 04/27/2024 09:48:11 Imaging Results None recorded. Procedure Notes None recorded. Medical Equipment None [...] completed Not Available Not Available Not Available ondansetron HCl 4 mg tablet TAKE 1 TABLET EVERY 4-6 HOURS BY MOUTH NEEDED, FOR NAUSEA AND VOMITING. 03/15 completed Not Available Not Available Not Available [...] BY MOUTH EVERY DAY FOR 5 DAYS 10/10 completed Not Available Not Available Not Available doxycycline hyclate 100 mg tablet TAKE 1 TABLET BY MOUTH EVERY DAY WITH FOOD 04/27 completed Not Available Not Available Not Available nitrofurant oin monohydrate /macrocryst als 100 mg capsule TAKE 1 CAPSULE BY MOUTH EVERY 12 HOURS DIRECTED FOR 7 DAYS 12/12 completed Not Available Not Available Not Available Alive active Not Available Not Available Not Available Arazlo 0.045 % lotion 04/27 completed Not Available Not Available Not Available Vitals Date Recorded Body height Body mass index (BMI) Body weight Systolic And Diastolic Provider Name and Address Organization Details Last Updated DateTime 04/25/2025 157.48 cm 38.2 kg/m2 72979.81 g 131/89 mm[Hg] Dominique Hernandez [facility] 04/25/2025 17:24:26 Date Recorded Body weight Systolic And Diastolic Provider Name and Address Organization Details Last Updated DateTime 04/25/2025 43828.74356 g 131/89 mm[Hg] Norma Goodman [facility] 04/25/2025 18:00:25 Date Recorded Body height Body mass index (BMI) Body weight Systolic And Diastolic Provider Name and Address Organization Details Last Updated DateTime 05/01/2025 157.48 cm 38 kg/m2 50819.21 g 136/93 mm[Hg] Radha Olson [facility] 05/01/2025 10:38:51 Social History Question Answer Notes LastModified by Organizat ion Details LastModified Time How Many Years Have You Consumed Alcohol? 7 [email or web address] Information not available 04/27/2024 Are You Blind Or Do You Have Difficulty Seeing? No [email or web address] Information not available 04/27/2024 What Is Your Level Of Caffeine Consumption? Heavy Information not available 04/27/2024 How Much Tobacco Do You Chew? None Information not available 04/27/2024 In The 14 Days Before Symptom Onset, Have You Had Close Contact With A Laboratory-confirme d COVID-19 While That Case Was Ill? No [email or web address] Information n ot available 04/27/2024 In The 14 Days Before Symptom Onset, Have You Had Close Contact With A Person Who Is Under Investigation For COVID-19 While That Person Was Ill? No [email or web address] Information not available 04/27/2024 Have You Been To An Area Known To Be High Risk For COVID-19? No Information not available 04/27/2024 Are You Deaf Or Do You Have Serious Difficulty Hearing? No Information not available 04/27/2024 What Type Of Diet Are You Following? REGULAR [email or web address] Information n ot available 04/27/2024 What Is The Highest Grade Or Level Of School You Have Completed Or The Highest Degree You Have Received? RI84263-4 [email or web address] Information not available 04/27/2024 Are There Any Guns Present In Your Home? Yes Information not available 04/27/2024 Do You Use Protection During Sex? No Information not available 04/27/2024 Do You Use Your Seat Belt Or Car Seat Routinely? Yes [email or web address] Information not available 04/27/2024 Are You Sexually Active? Yes [email or web address] Information not available 07/27/2024 Do You Have Smoke And Carbon Monoxide Detectors In Your Home? Yes [email or web address] Information not available 04/27/2024 How Much Tobacco Do You Smoke? No Information not available 04/27/2024 Do You Use Sunscreen Routinely? Yes [email or web address] Information not available 04/27/2024 Have You Used IV Drugs? No [email or web address] Information not available 04/27/2024 Do You Have Difficulty Walking Or Climbing Stairs? No [email or web address] Information not available 07/27/2024 Sex: Unknown Functional Status Question Answer Note LastModified by Organizat ion Details LastModified Time Do you use any illicit or recreational drugs? No Information not available 04/27/2024 What is your level of alcohol consumption? Moderate [email or web address] Information not available 04/27/2024 Are you currently employed? Yes Information not available 07/27/2024 Are you able to walk independently without assistance or assistive devices? [email or web address] Information not available 04/27/2024 Are you able to care for yourself independently? 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 No Information not available 07/27/2024 What is your exercise level? None [email or web address] Information not available 04/27/2024 Mental Status Question Answer Note LastModified by Organization D etails LastModified Time Do you feel stressed (tense, restless, nervous, or anxious, or unable to sleep at night)? [id number] [email or web address] Information not available 04/27/2024 Family History Relationship Description Onset Age of this Age Resolved Age Notes LastModified by Organization Details LastModified Time Mother Disorder of thyroid gland [email or web address] Not available 2023 09:48:11 Maternal Aunt Disorder of thyroid gland [email or web address] Not available 2023 09:48:11 Brother Hypercholest erolemia [email or web address] Not available 2023 09:48:11 Paternal Grandfather Heart disease [email or web address] Not available 2023 09:48:11 Medical History Condition Response Allergies (Food, seasonal, environmental ) N Other N Breast Cancer N Drug/Latex Allergies/Reactions N Blood Transfusion N Dermatologic Disorders N Lung Disease N Defects or Inherited Disease N Breast Problem N Gestational Diabetes N Hematologic disorders N Anesthesia Complications N History of STI N Deep Vein Thrombosis N Polycystic ovary syndrome N Anxiety Disorder N Autoimmune disease N Arthritis N Infertility N Polyps N Acid Reflux (GERD) N History of abnormal pap N Cancer N Stroke N Varicosities N Neurologic/Epilepsy N Endometriosis N High Cholesterol N Headaches N Fibromyalgia N Kidney Disease N Heart Problems N Kidney or Bladder Problems N Thyroid Problems N GI Problems N Eating Disorder N Anemia N Art (IVF or FET) N Psychiatric Illness N Ovarian Cancer N Diabetes N Pulmonary (TB, Asthma) N Hepatitis/Liver Disease N No Past Medical History N Eczema N Urinary Tract Infection N Abuse/Domestic Violence N Asthma N Trauma/Violence N Depression/ depression N Heart Disease N Pre-Eclampsia N Hypertension N Osteoporosis N Thrombophilias N Gynecological History Statement/Question Response Flow Moderate Date of LMP 08/13/2024 On BCP's at Conception? N N Was last menstrual period normal Y STIs/STDs N HPV Vaccine Y Duration of Flow (days) 4 Current Control Method Date of Last Colonoscopy Frequency of Cycle (Q days) 31 Sexually Active? Y None Date of DEXA bone scan Age of first menstrual cycle 12 Date of Last Pap Smear 04/27/2024 Sexual Problems? N Desired Control Method None LMP Definite N Obstetrics History GPAL:G 2 P 0 0 1 0 Type Value Spontaneous 1 Total 2 Past Encounters Encounter ID Performer Location Encounter Start Date Encounter Closed Date Diagnosis/Indication Diagnosis SNOMED-CT Code Diagnosis ICD10 Code Diagnosis IMO Codes Diagnosis Note [id number] JACK RHODES MD [place] [address] [address] 04/27/2024 09:42:19 04/27/2024 10:49:14 Gynecologic examination 05388371 Z01.419 [facility]- Cervical cancer screening: Pap smear obtained today, will follow up on the results with the patient as they become available- Breast cancer screening: mammogram not indicated- Colon cancer screening: does not qualify- HPV immunizati on: received- STD testing: declined- hereditary cancer screening: does not qualify for testing- discussed PNV while TTC; if no in 1 year could consider workup [id number] JACK RHODES MD [place] [address] [address] 07/27/2024 13:56:24 07/27/2024 14:53:18 Irregular periods 02399352 N92.6 - Differenti al diagnosis of cause [...] of reproducti ve planning and treatment options [id number] JACK RHODES MD [place] [address],[facility] [place] [address] 08/11/2024 09:26:52 08/11/2024 12:39:53 Female infertility 6036378 N97.9 Z31.9 [id number] JACK RHODES MD [place] [address],[facility] [place] [address] 08/11/2024 09:27:06 08/15/2024 10:55:38 Screening procedure 76266684 Z13.9 Irregular periods 210715 07 N92.6 - Differenti al diagnosis of [...] understand ing, will call clinic with CD1 [id number] Jignesh Méndez MD [place] [address],[place] [address] 09/26/2024 14:14:58 09/26/2024 14:56:03 Uncertain viability of 377815061 O36.80X0 Z3A.01 [id number] JACK RHODES MD [place] [address],[place] [address] 10/10/2024 09:30:41 10/10/2024 09:53:57 [id number] JACK RHODES MD [place] [address],[place] [address] 10/10/2024 09:31:05 10/10/2024 10:34:37 test positive 687469707 Z32.01 1. Exam today within normal limits.2. Ultrasound today confirms GA and viability. EDC . GC/Clamydi a testing done: will f/u as indicated. 4. ACOG guidelines and plan of care for reviewed with patient. All questions answered.5 . Return to office at 12 weeks for new OB visit6. Will need new OB labs at next visit.7. Genetic screening: declined. [id number] MD [facility] [address],[place] [address] 11/09/2024 14:23:22 11/09/2024 15:02:09 screening 790746960 Z36.82 Z3A.12 [id number] MD [facility] [address],[place] [address] 11/09/2024 14:23:52 11/10/2024 09:40:41 care status 846000776 Z34.82 [id number] MD [facility] [address],[place] [address] 12/12/2024 09:25:05 12/12/2024 10:01:38 care status 959791345 Z34.82 80741635 [id number] Jignesh Méndez MD [place] [address],[place] [address] 01/02/2025 14:20:56 01/02/2025 15:49:04 screening for malformation 558576229 Z36.3 Z3A.20 2450468605 [id number] Jignesh Méndez MD [place] [address],[place] [address] 01/02/2025 15:47:07 01/02/2025 17:05:26 Second trimester 79207065 Z34.02 36962925 [id number] JACK RHODES MD [place] [address],[place] [address] 01/30/2025 10:45:05 01/30/2025 11:53:56 Chronic hypertension complicating AND/OR reason for care during 30594298 O10.919 58450075 - elevated BP in office at 24 weeks, asymptomat ic- on chart review, multiple elevated BP outside of - baseline labs ordered- plan for 32 week testing Gestation period, 24 weeks 436821349 Z3A.24 3946865 [id number] JACK RHODES MD [place] [address],[place] [address] 02/27/2025 10:45:43 02/27/2025 11:13:36 Chronic hypertension complicating AND/OR reason for care during 84340224 O10.919 89760001 - elevated BP in office at 24 weeks, asymptomat ic- on chart review, multiple elevated BP outside of - baseline labs wnl- plan for 32 week testing Gestation period, 28 weeks 87690352 Z3A.28 8151806 [id number] JACK RHODES MD [place] [address],[place] [address] 03/15/2025 16:38:05 03/15/2025 17:14:56 Chronic hypertension complicating AND/OR reason for care during 66770541 O10.919 31629016 - elevated BP in office at 24 weeks, asymptomat ic- on chart review, multiple elevated BP outside of - baseline labs wnl- plan for 32 week testing Gestation period, 30 weeks 64605882 Z3A.30 4073610 [id number] Jignesh Méndez MD [place] [address],[place] [address] 03/20/2025 09:58:19 03/20/2025 11:05:43 care status 124194576 Z34.83 68767382 [id number] Jignesh Méndez MD [place] [address],[place] [address] 03/22/2025 11:42:47 03/23/2025 09:29:30 Bradycardia - baseline heart rate 916544111 O36.8390 97740340 [id number] JACK RHODES MD [place] [address],[place] [address] 03/27/2025 09:48:49 03/27/2025 10:51:07 Essential hypertension complicating AND/OR reason for care during 73571469 O10.013 Z3A.32 9643766 [id number] JACK RHODES MD [place] [address],[place] [address] 03/27/2025 09:49:28 03/27/2025 11:07:30 Body mass index 30+ - obesity 167643958 E66.9 7016437 [id number] JACK RHODES MD [place] [address],[place] [address] 03/27/2025 09:50:14 03/27/2025 11:53:51 Chronic hypertension complicating AND/OR reason for care during 78110522 O10.919 12170683 - elevated BP in office at 24 weeks, asymptomat ic- on chart review, multiple elevated BP outside of - baseline labs wnl- continue weekly testing Gestation period, 32 weeks 8120784 Z3A.32 6070934 - continue PNV [id number] JACK RHODES MD [place] [address],[place] [address] 04/03/2025 09:55:34 04/03/2025 10:38:49 Essential hypertension complicating AND/OR reason for care during 71560787 O10.013 Z3A.33 0372853 [id number] JACK RHODES MD [place] [address],[place] [address] 04/03/2025 09:55:54 04/03/2025 11:56:41 Maternal obesity complicating , childbirth and the puerperium, antepartum 2431928134 07 O99.210 E66.09 5125457537 [id number] JACK RHODES MD [place] [address],[place] [address] 04/03/2025 09:56:10 04/04/2025 09:07:40 Chronic hypertension complicating AND/OR reason for care during 28600832 O10.919 22148754 - elevated BP in office at 24 weeks, asymptomat ic- on chart review, multiple elevated BP outside of - baseline labs wnl- continue weekly testing Gestation period, 33 weeks 26960650 Z3A.33 7297067 [id number] JACK RHODES MD [place] [address],[place] [address] 04/10/2025 09:22:39 04/10/2025 09:54:16 Chronic hypertension complicating AND/OR reason for care during 01671922 O10.913 Z3A.34 74448829 - elevated BP in office at 24 weeks, asymptomat ic- on chart review, multiple elevated BP outside of - baseline labs wnl- continue weekly testing [id number] JACK RHODES MD [place] [address],[place] [address] 04/10/2025 09:22:56 04/10/2025 10:42:15 Maternal obesity complicating , childbirth and the puerperium, antepartum 5767906868 07 O99.210 8470991642 [id number] JACK RHODES MD [place] [address],[place] [address] 04/10/2025 09:23:13 04/10/2025 11:14:34 Chronic hypertension complicating AND/OR reason for care during 35240045 O10.919 18414275 - elevated BP in office at 24 weeks, asymptomat ic- on chart review, multiple elevated BP outside of - baseline labs wnl- continue weekly testing Gestation period, 34 weeks 59847618 Z3A.34 6017238 [id number] JACK RHODES MD [place] [address],[place] [address] 04/18/2025 16:15:32 04/18/2025 16:57:27 Essential hypertension complicating AND/OR reason for care during 58350656 O10.013 Z3A.35 7693024 [id number] JACK RHODES MD [place] [address],[place] [address] 04/18/2025 16:15:58 04/18/2025 17:20:30 Maternal obesity complicating , childbirth and the puerperium, antepartum 1975848961 07 O99.210 E66.09 5294528839 [id number] JACK RHODES MD [place] [address],[place] [address] 04/18/2025 16:16:23 04/18/2025 17:59:57 Chronic hypertension complicating AND/OR reason for care during 87521598 O10.919 77372836 - elevated BP in office at 24 weeks, asymptomat ic- on chart review, multiple elevated BP outside of - baseline labs wnl- continue weekly testing Gestation period, 35 weeks 28123191 Z3A.35 0854653 [id number] JACK RHODES MD [place] [address],[place] [address] 04/25/2025 16:17:33 04/25/2025 16:57:53 Essential hypertension complicating AND/OR reason for care during 48026198 O10.013 Z3A.36 7955343 [id number] JACK RHODES MD [place] [address],[place] [address] 04/25/2025 16:17:57 04/25/2025 18:03:35 Chronic hypertension complicating AND/OR reason for care during 82923453 O10.919 15008277 - elevated BP in office at 24 weeks, asymptomat ic- on chart review, multiple elevated BP outside of - baseline labs wnl- continue weekly testing [id number] JACK RHODES MD [place] [address],[place] [address] 04/25/2025 16:18:16 04/26/2025 08:25:30 Chronic hypertension complicating AND/OR reason for care during 43037793 O10.919 10985623 - elevated BP in office at 24 weeks, asymptomat ic- on chart review, multiple elevated BP outside of - baseline labs wnl- continue weekly testing Gestation period, 36 weeks [id number] Z3A.36 [id number] - continue PNV [id number] JACK RHODES MD [place] [address],[place] [address] 05/01/2025 09:56:29 05/01/2025 10:24:07 Essential hypertension complicating AND/OR reason for care during [id number] O10.013 Z3A.37 [id number] JACK RHODES MD [place] [address],[place] [address] 05/01/2025 09:57:00 05/02/2025 12:08:45 Chronic hypertension complicating AND/OR reason for care during [id number] O10.913 [id number] - elevated BP in office at 24 weeks, asymptomat ic- on chart review, multiple elevated BP outside of - baseline labs wnl- continue weekly testing [id number] JACK RHODES MD [place] [address],[place] [address] 05/01/2025 09:57:27 05/01/2025 16:16:48 Chronic hypertension complicating AND/OR reason for care during [id number] O10.919 [id number] - elevated BP in office at 24 weeks, asymptomat ic- on chart review, multiple elevated BP outside of - baseline labs wnl- continue weekly testing Gestation period, 37 weeks [id number] Z3A.37 [id number] - continue pNV Health Concerns Section Related Observation LastModified by Organization Detai ls LastModified Time None Recorded Concern Status LastModified by Organization Details LastModified Time None Recorded Advance Directives Directive None Recorded Payers Insurance Date Sequence Insurance Name Policy Number Policy Garcia Covered Member ID Garcia Member ID Guarantor Name 04/30/2025 1 [employer] [id number] Tito Tamayo [id number] Leelee Tamayo Notes Date Note Type Note Provider Name and Address Organization Details Recorded Time 04/25/2025 text/html Generic HPI TemplateReported by Patient JACK RHODES MD [address], [place], [address], [facility] 04/25/2025 18:18:24 05/01/2025 text/html Generic HPI TemplateReported by Patient JACK RHODES MD [address], [place], [address], [facility] 05/01/2025 16:14:24 OBGyn Episode Ob Episode Information Episode Created Date Number of Fetuses Patient Bloodtype Patient rh Status Prepregnancy Weight lbs Domestic Partner Domestic Partner Phone Father Name Searchlight Operator Status 04/27/20 24 1 CLOSED Fetus Data First Name Last Name Admitted to NICU Weight (g) Sex Living Outcome Pediatric Complications Fetus ID Race Codes Race Delivery Type , Spontane ous [id number] Harsh Calculation Initial Harsh Date Initial Exam [...] Method Maternal HG B and HCT Levels Ob Episode Information Episode Created Date Number of Fetuses Patient Bloodtype Patient rh Status Prepregnancy Weight lbs Domestic Partner Domestic Partner Phone Father Name Searchlight Operator Status 10/11/19 25 1 A Positive 194 OPEN Fetus Data First Name Last Name Admitted to NICU Weight (g) Sex Living Outcome Pediatric Complications Fetus ID Race Codes Race Delivery Type [id number] Problems Problem Notes arrhythmia noted LD - Referr al faxed to [facility] 03/23 Problem Name Start Date End Date Resolution Snomed Code Not e Chronic hypertension complicating AND/OR reason for care during 01/30/2025 [id number] - elevated BP i n office at 24 weeks, asymptomatic- on chart review, multiple elevated BP outside of - baseline labs ordered - plan for 32 week testing Harsh Calculation Initial Harsh Date Initial Exam Date Initial Exam Provider Initial Ultrasound Date Last Menstrual Period Date Ultra Sound Weeks Gestation 05/21/2025 10/10/2024 09/26/2024 08/13/2024 6 Eighteen To Twenty Week Harsh Update Ultra Sound Date Fundal Height At Umbil Quickening Date Ultra Sound Latest Weeks Gestation Final Harsh Confirmed By Final Harsh Confirmed Date Final Harsh Date Ultra Sound Latest Days Gestation 0 [email or web address] 11/09/2024 05/20/20 25 0 Pre-bo Flowsheet Flowsheet Date 10/10/2024 Hopson Score Blood Edema Fundus Height Fundus Units Glucose Ketones Leukocytes Nitrite Labor Signs Protein Cervic Dilation Cervic Effacement Cervic Station Type Weight in lbs Pre/Post Dialysis Refused Weight 194.085061219715 BP Diastolic BP Location Tested BP Systolic BP Type 83 L arm 141 sitting Fetus Heart Rate Present Fetus Movement Comments Flowsheet Date 11/09/2024 Hopson Score Blood Edema Fundus Height Fundus Units Glucose Ketones Leukocytes Nitrite Labor Signs Protein Cervic Dilation Cervic Effacement Cervic Station Type Weight in lbs Pre/Post Dialysis Refused BP Diastolic BP Location Tested BP Systolic BP Type Fetus Heart Rate Present Fetus Movement Comments Flowsheet Date 11/09/2024 Hopson Score Blood Edema Fundus Height Fundus Units Glucose Ketones Leukocytes Nitrite Labor Signs Protein Cervic Dilation Cervic Effacement Cervic Station Type Weight in lbs Pre/Post Dialysis Refused 197.970051186235 BP Diastolic BP Location Tested BP Systolic BP Type 84 L arm 137 sitting Fetus Heart Rate Present A 161 Fetus Movement A No Comments this patient is a 28year-old multiparous female at 12 weeks' gestation who presents for initial care. Her medical, surgical, obstetric history is unremarkable. She is vaccinated. She was given precautions recommendations for . We talked about vaccines in . Talked about care in detail. She is having genetic testing. She had a normal 12 week ultrasound. To begin routine care. Flowsheet Date 12/12/2024 Hopson Score Blood Edema Fundus Height Fundus Units Glucose Ketones Leukocytes Nitrite Labor Signs Protein Cervic Dilation Cervic Effacement Cervic Station Type Weight in lbs Pre/Post Dialysis Refused 198.433017950905 BP Diastolic BP Location Tested BP Systolic BP Type 85 L arm 128 sitting Fetus Heart Rate Present A 143 Present Fetus Movement A No Comments no complaints, no problems, routine care, no contractions, no vaginal bleeding, no loss of fluid, no cramping Flowsheet Date 01/02/2025 Hopson Score Blood Edema Fundus Height Fundus Units Glucose Ketones Leukocytes Nitrite Labor Signs Protein Cervic Dilation Cervic Effacement Cervic Station Type Weight in lbs Pre/Post Dialysis Refused BP Diastolic BP Location Tested BP Systolic BP Type Fetus Heart Rate Present Fetus Movement Comments Flowsheet Date 01/02/2025 Hopson Score Blood Edema Fundus Height Fundus Units Glucose Ketones Leukocytes Nitrite Labor Signs Protein Cervic Dilation Cervic Effacement Cervic Station Type Weight in lbs Pre/Post Dialysis Refused Weight 198.983415437611 BP Diastolic BP Location Tested BP Systolic BP Type 85 L arm 132 sitting Fetus Heart Rate Present Fetus Movement A No Comments no complaints, no problems, routine care, no contractions, no vaginal bleeding, no loss of fluid, no cramping Flowsheet Date 01/30/2025 Hopson Score Blood Edema Fundus Height Fundus Units Glucose Ketones Leukocytes Nitrite Labor Signs Protein Cervic Dilation Cervic Effacement Cervic Station Type Weight in lbs Pre/Post Dialysis Refused Weight 202.593406948147 BP Diastolic BP Location Tested BP Systolic BP Type 98 L arm 142 sitting 92 R arm 136 sitting Fetus Heart Rate Present A 135 Fetus Movement A Yes Comments Good movement. No cram ping or bleeding. Anatomy US complete and normal last visit, breech. BP elevated today, asymptomatic. Multiple elevated BP outside of . Discussed diagnosis of chronic HTN, plan for baseline labs today and 32 week testing. Patient to start bASA ppx. RTC 4 weeks. Flowsheet Date 02/27/2025 Hopson Score Blood Edema Fundus Height Fundus Units Glucose Ketones Leukocytes Nitrite Labor Signs Protein Cervic Dilation Cervic Effacement Cervic Station Type Weight in lbs Pre/Post Dialysis Refused Weight 202.091191497559 BP Diastolic BP Location Tested BP Systolic BP Type 81 L arm 134 sitting Fetus Heart Rate Present A 130 Fetus Movement A Yes Comments Good movement. No cram ping or bleeding. GCT and labs today. Discussed Tdap. Baby shower in 2 weeks! Will start testing at 32 weeks. RTC 2 weeks. Flowsheet Date 03/15/2025 Hopson Score Blood Edema Fundus Height Fundus Units Glucose Ketones Leukocytes Nitrite Labor Signs Protein Cervic Dilation Cervic Effacement Cervic Station Type Weight in lbs Pre/Post Dialysis Refused Weight 205.503048231374 BP Diastolic BP Location Tested BP Systolic BP Type 87 L arm 139 sitting Fetus Heart Rate Present A 145 Fetus Movement A Yes Comments Good movement. No cram ping or bleeding. Passed GTT, normal Hgb. testing scheduled starting at 32 weeks. RTC 2 weeks. Flowsheet Date 03/20/2025 Hopson Score Blood Edema Fundus Height Fundus Units Glucose Ketones Leukocytes Nitrite Labor Signs Protein Cervic Dilation Cervic Effacement Cervic Station Type Weight in lbs Pre/Post Dialysis Refused BP Diastolic BP Location Tested BP Systolic BP Type Fetus Heart Rate Present Fetus Movement Comments Flowsheet Date 03/20/2025 Hopson Score Blood Edema Fundus Height Fundus Units Glucose Ketones Leukocytes Nitrite Labor Signs Protein Cervic Dilation Cervic Effacement Cervic Station Type Weight in lbs Pre/Post Dialysis Refused 204.444003042073 BP Diastolic BP Location Tested BP Systolic BP Type 87 R arm 138 sitting Fetus Heart Rate Present A 125 Fetus Movement A Yes Comments NST performed, no arrhythmia appreciated. Flowsheet Date 03/27/2025 Hopson Score Blood Edema Fundus Height Fundus Units Glucose Ketones Leukocytes Nitrite Labor Signs Protein Cervic Dilation Cervic Effacement Cervic Station Type Weight in lbs Pre/Post Dialysis Refused BP Diastolic BP Location Tested BP Systolic BP Type Fetus Heart Rate Present Fetus Movement Comments Flowsheet Date 03/27/2025 Hopson Score Blood Edema Fundus Height Fundus Units Glucose Ketones Leukocytes Nitrite Labor Signs Protein Cervic Dilation Cervic Effacement Cervic Station Type Weight in lbs Pre/Post Dialysis Refused Weight 203.281840005941 BP Diastolic BP Location Tested BP Systolic BP Type 87 L arm 135 sitting Fetus Heart Rate Present Fetus Movement A Yes Comments Flowsheet Date 03/27/2025 Hopson Score Blood Edema Fundus Height Fundus Units Glucose Ketones Leukocytes Nitrite Labor Signs Protein Cervic Dilation Cervic Effacement Cervic Station Type Weight in lbs Pre/Post Dialysis Refused 203.36409290691 BP Diastolic BP Location Tested BP Systolic BP Type 87 L arm 135 sitting Fetus Heart Rate Present A Present Fetus Movement A Yes Comments Doing well, no cramping or b leeding. Had episode of bright red bleeding on 03/18, went to L&D and had negative workup. Possible arrhythmia noted on NSt in L&D however normal NST x2 since that time. Patient would like to d/c MFM consult at this time. Will reconsult if arrhythmia recurs. Good movement. BPP 10/10, EFW 66%. Discussed delivery between 38-40 weeks. Discussed preadmission and RSV vaccine. RTC 1 week. Flowsheet Date 04/03/2025 Hopson Score Blood Edema Fundus Height Fundus Units Glucose Ketones Leukocytes Nitrite Labor Signs Protein Cervic Dilation Cervic Effacement Cervic Station Type Weight in lbs Pre/Post Dialysis Refused BP Diastolic BP Location Tested BP Systolic BP Type Fetus Heart Rate Present Fetus Movement Comments Flowsheet Date 04/03/2025 Hopson Score Blood Edema Fundus Height Fundus Units Glucose Ketones Leukocytes Nitrite Labor Signs Protein Cervic Dilation Cervic Effacement Cervic Station Type Weight in lbs Pre/Post Dialysis Refused BP Diastolic BP Location Tested BP Systolic BP Type Fetus Heart Rate Present Fetus Movement Comments Flowsheet Date 04/03/2025 Hopson Score Blood Edema Fundus Height Fundus Units Glucose Ketones Leukocytes Nitrite Labor Signs Protein Cervic Dilation Cervic Effacement Cervic Station Type Weight in lbs Pre/Post Dialysis Refused Weight 207.899730124449 BP Diastolic BP Location Tested BP Systolic BP Type 84 L arm 133 sitting Fetus Heart Rate Present A Present Fetus Movement A Yes Comments Good movement. No cram ping or bleeding. Scheduled preadmission. NST reactive today, BPP 10/10. No arrhythmia found. Discussed tdap and RSV vaccines, risks and benefits discussed. RTC 1 week. Flowsheet Date 04/10/2025 Hopson Score Blood Edema Fundus Height Fundus Units Glucose Ketones Leukocytes Nitrite Labor Signs Protein Cervic Dilation Cervic Effacement Cervic Station Type Weight in lbs Pre/Post Dialysis Refused BP Diastolic BP Location Tested BP Systolic BP Type Fetus Heart Rate Present Fetus Movement Comments Flowsheet Date 04/10/2025 Hopson Score Blood Edema Fundus Height Fundus Units Glucose Ketones Leukocytes Nitrite Labor Signs Protein Cervic Dilation Cervic Effacement Cervic Station Type Weight in lbs Pre/Post Dialysis Refused 206.832034142373 BP Diastolic BP Location Tested BP Systolic BP Type 85 R arm 128 sitting Fetus Heart Rate Present Fetus Movement Comments Flowsheet Date 04/10/2025 Hopson Score Blood Edema Fundus Height Fundus Units Glucose Ketones Leukocytes Nitrite Labor Signs Protein Cervic Dilation Cervic Effacement Cervic Station Type Weight in lbs Pre/Post Dialysis Refused Weight 206.787167138968 BP Diastolic BP Location Tested BP Systolic BP Type 85 R arm 128 sitting Fetus Heart Rate Present A 135 Fetus Movement A Yes Comments Had some increased swelling last week. Baby active. No cramping or bleeding. Plan for MIL on 05/15. BPP 04/21. RTC 1 week Flowsheet Date 04/18/2025 Hopson Score Blood Edema Fundus Height Fundus Units Glucose Ketones Leukocytes Nitrite Labor Signs Protein Cervic Dilation Cervic Effacement Cervic Station Type Weight in lbs Pre/Post Dialysis Refused BP Diastolic BP Location Tested BP Systolic BP Type Fetus Heart Rate Present Fetus Movement Comments Flowsheet Date 04/18/2025 Hopson Score Blood Edema Fundus Height Fundus Units Glucose Ketones Leukocytes Nitrite Labor Signs Protein Cervic Dilation Cervic Effacement Cervic Station Type Weight in lbs Pre/Post Dialysis Refused BP Diastolic BP Location Tested BP Systolic BP Type Fetus Heart Rate Present Fetus Movement Comments Flowsheet Date 04/18/2025 Hopson Score Blood Edema Fundus Height Fundus Units Glucose Ketones Leukocytes Nitrite Labor Signs Protein Cervic Dilation Cervic Effacement Cervic Station Type Weight in lbs Pre/Post Dialysis Refused 206.512417852761 BP Diastolic BP Location Tested BP Systolic BP Type 93 L arm 150 sitting Fetus Heart Rate Present A 130 Fetus Movement A Yes Comments Doing well, good movement. S welling stable. No headaches, vision changes, chest pain, dyspnea, RUQ pain. MIL scheduled. BPP 04/21. GBS next visit. RTC 1 week. Flowsheet Date 04/25/2025 Hopson Score Blood Edema Fundus Height Fundus Units Glucose Ketones Leukocytes Nitrite Labor Signs Protein Cervic Dilation Cervic Effacement Cervic Station Type Weight in lbs Pre/Post Dialysis Refused BP Diastolic BP Location Tested BP Systolic BP Type Fetus Heart Rate Present Fetus Movement Comments Flowsheet Date 04/25/2025 Hopson Score Blood Edema Fundus Height Fundus Units Glucose Ketones Leukocytes Nitrite Labor Signs Protein Cervic Dilation Cervic Effacement Cervic Station Type Weight in lbs Pre/Post Dialysis Refused 209.543060417752 BP Diastolic BP Location Tested BP Systolic BP Type 89 L arm 131 sitting Fetus Heart Rate Present Fetus Movement A Yes Comments Flowsheet Date 04/25/2025 Hopson Score Blood Edema Fundus Height Fundus Units Glucose Ketones Leukocytes Nitrite Labor Signs Protein Cervic Dilation Cervic Effacement Cervic Station Type Weight in lbs Pre/Post Dialysis Refused Weight 209.321261334995 BP Diastolic BP Location Tested BP Systolic BP Type 89 L arm 131 sitting Fetus Heart Rate Present A Present Fetus Movement A Yes Comments Doing well, good movem ent. EFW 75%, AC 92%. Vertex, BPP 04/21. GBS collected. SVE closed. RTC 1 week. Flowsheet Date 05/01/2025 Hopson Score Blood Edema Fundus Height Fundus Units Glucose Ketones Leukocytes Nitrite Labor Signs Protein Cervic Dilation Cervic Effacement Cervic Station Type Weight in lbs Pre/Post Dialysis Refused BP Diastolic BP Location Tested BP Systolic BP Type Fetus Heart Rate Present Fetus Movement Comments Flowsheet Date 05/01/2025 Hopson Score Blood Edema Fundus Height Fundus Units Glucose Ketones Leukocytes Nitrite Labor Signs Protein Cervic Dilation Cervic Effacement Cervic Station Type Weight in lbs Pre/Post Dialysis Refused BP Diastolic BP Location Tested BP Systolic BP Type Fetus Heart Rate Present Fetus Movement Comments Flowsheet Date 05/01/2025 Hopson Score Blood Edema Fundus Height Fundus Units Glucose Ketones Leukocytes Nitrite Labor Signs Protein Cervic Dilation Cervic Effacement Cervic Station Type Weight in lbs Pre/Post Dialysis Refused Weight 208.828607777505 BP Diastolic BP Location Tested BP Systolic BP Type 93 R arm 136 sitting Fetus Heart Rate Present A 130 Fetus Movement A Yes Comments Good movement. Mild cr amping, spotting with wiping today. Discussed return precations. GBS neg. BPP 04/21. RTC 1 week. Menstrual History Last Menstrual Date Menses Monthly On Bcp Conception Prior Menses Frequency Hcg Plus Date Menarche Onset Age 0208/13/2024 Delivery Information Delivery Date Delivery Type Labor Anesthesia Weeks Gestation Incision Type Labor Labor Length Hrs Delivered By Post Complications Tubal Sterilization Discharge Date Comments Discharge Information Feeding Method Contraceptive Method Maternal HG B and HCT Levels
[2025-05-04 15:44] LABS: Total Protein Urine Random 20 mg/dL; Ur Ttl Prot Creatinine Ratio 0.46 mg/mg (0-0.20)
== END 2025-05-04 17:44 | disposition home or self-care (01) ==
LOC: ANHOBOP 13:42 → ANHOBPP 13:44
PROVIDERS: Visit Provider Obstetrics & Gynecology
DX: O13.9 Gestational [pregnancy-induced] hypertension without significant proteinuria, unspecified trimester (principal); Z3A.00 Weeks of gestation of pregnancy not specified
CPT/HCPCS: 36415; 59025; 80053; 81003; 82570; 84156; 84550; 85025; 99199

== ENCOUNTER 2025-05-05 17:41 | Outpatient (NON) | payer BC, SELFPAY ==
[2025-05-05 17:58] VITALS: BMI 38.0
[2025-05-05 18:50] LABS: Total Volume 24 Hour Urine 3500 ml
[2025-05-05 18:57] LABS: Total Protein Urine 24 Hr 560 mg/24hr (28-141); Total Protein Urine Random 16 mg/dL
[2025-05-05 19:06] LABS: Creatinine Clearance Urine 151.2 ml/min (75-125); Serum Creat 0.56; Specific Gravity Ur 1.015; Total Volume 24 Hour Urine 3500 ml
== END 2025-05-05 17:42 | disposition home or self-care (01) ==
LOC: ANHOBOP 17:56
PROVIDERS: Visit Provider Obstetrics & Gynecology
DX: O13.9 Gestational [pregnancy-induced] hypertension without significant proteinuria, unspecified trimester (principal); Z3A.00 Weeks of gestation of pregnancy not specified
CPT/HCPCS: 81050; 82575; 84156

== ENCOUNTER 2025-05-08 16:55 | Inpatient (IN) | payer BC, SELFPAY ==
[2025-05-08] VITALS (70 sets, daily range): BP systolic 134–157; BP diastolic 71–108; PULSE 74–113; TEMP 36.3–36.4; O2SAT 95–100; BMI 38.5
--- OUTSIDE RECORDS SUMMARY | 2025-05-08 17:20 | XMS_ITS | Continuity of Care Document ---
Author Organization [facility] Address [address] [place] [address] [place] [address] Care Team Providers Care Rural Sociologist Name Role Phone JALEEL DE LEON Primary Care Provider [phone] Assessment No assessment recorded. Plan of Treatment [...] d. Imaging non-str ess test 2024 025 [id number] [address], [address], [place], [address], 05/08/2025 11:33:40 Medication Orders None recorde d. Patient TargetsNo targets recorded. Patient InstructionsNo instructions recorded. Reason for Referral None Reported. Results Created Date Observation Date Name Description Value Unit Range Abnormal Flag Note LastModifiedBy Organization Detail LastModifiedTime 10/11/19 25 10/10/2024 CT/GC AND TRICH OMONA S VAGIN TALITA (RRNA ), URINE chlamydia trachomatis, PCR Negati ve negati ve Not Available [facility] (Lab) [address], [place], [address], 10/11/2024 14:24:20 10/11/19 25 10/10/2024 CT/GC AND TRICH OMONA S VAGIN TALITA (RRNA ), URINE neisseria gonorrhoeae, PCR Negati ve negati ve Not Available [facility] (Lab) [address], [place], [address], 10/11/2024 14:24:20 10/11/19 25 10/10/2024 CT/GC AND TRICH OMONA S VAGIN TALITA (RRNA ), URINE trichomonas vaginalis ribosomal RNA (rrna) Negati ve negati ve Not Available [facility] (Lab) [address], [place], [address], 10/11/2024 14:24:20 11/10/19 25 11/09/2024 CBC W/DIF F WBC 8.8 10'3/ uL 3.5-10 .5 Not Available [facility] (Lab) [address], [place], [address], 11/12/2024 23:18:19 11/10/19 25 11/09/2024 CBC W/DIF F RBC 4.40 10'6/ uL (based on docume nted legal sex) 3.80-5 .20 Not Available [facility] (Lab) [address], [place], [address], 11/12/2024 23:18:19 11/10/19 25 11/09/2024 CBC W/DIF F HGB 13.2 g/dL (based on docume nted legal sex) 11.6-1 5.4 Not Available [facility] (Lab) [address], [place], [address], 11/12/2024 23:18:19 04/30/20 25 11/09/2024 CBC W/DIF F HCT 39.9 % (based on docume nted legal sex) 34.0-4 5.0 Not Available [facility] (Lab) [address], [place], [address], 11/12/2024 23:18:19 11/10/19 25 11/09/2024 CBC W/DIF F MCV 90.7 fL 80.0-9 9.0 Not Available [facility] (Lab) [address], [place], [address], 11/12/2024 23:18:19 11/10/19 25 11/09/2024 CBC W/DIF F MCH 30.0 pg 27.0-3 4.0 Not Available [facility] (Lab) [address], [place], [address], 11/12/2024 23:18:19 11/10/19 25 11/09/2024 CBC W/DIF F MCHC 33.1 g/dL 32.0-3 5.5 Not Available [facility] (Lab) [address], [place], [address], 11/12/2024 23:18:19 11/10/19 25 11/09/2024 CBC W/DIF F RDW 13.0 % 11.0-1 5.0 Not Available [facility] (Lab) [address], [place], [address], 11/12/2024 23:18:19 11/10/19 25 11/09/2024 CBC W/DIF F plt 246 10'3/ uL 150-40 0 Not Available [facility] (Lab) [address], [place], [address], 11/12/2024 23:18:19 11/10/19 25 11/09/2024 CBC W/DIF F MPV 11.7 fL 8.8-12 .1 Not Available [facility] (Lab) [address] [facility], [place], [address], 11/12/2024 23:18:19 11/10/19 25 11/09/2024 CBC W/DIF F neutrophils 60.9 % 34.0-7 3.0 Not Available [facility] (Lab) [address] [facility], [place], [address], 11/12/2024 23:18:19 11/10/19 25 11/09/2024 CBC W/DIF F lymphocytes 27.9 % 15.0-5 0.0 Not Available [facility] (Lab) [address] [facility], [place], [address], 11/12/2024 23:18:19 11/10/19 25 11/09/2024 CBC W/DIF F monocytes 7.9 % 1.0-15 .0 Not Available [facility] (Lab) [address] [place], [address], 11/12/2024 23:18:19 11/10/19 25 11/09/2024 CBC W/DIF F eosinophils 2.5 % 0.0-8. 0 Not Available [facility] (Lab) [address] [place], [address], 11/12/2024 23:18:19 11/10/19 25 11/09/2024 CBC W/DIF F basophils 0.5 % 0.0-2. 0 Not Available [facility] (Lab) [address] [facility], [place], [address], 11/12/2024 23:18:19 11/10/19 25 11/09/2024 CBC W/DIF F immature granulocytes 0.3 % no define d refere nce range Immat ure Granu locyt es (IG) repre sents autom ated enume ratio n of Metam yeloc ytes, Myelo cytes and Promy elocy smitha when IG is < 5%. Blast s are not inclu ded in IG and repor liset separ ately if prese nt. Not Available [facility] (Lab) [address] [facility], [place], [address], 11/12/2024 23:18:19 11/10/19 25 11/09/2024 CBC W/DIF F absolute neutrophils 5.4 10'3/ uL 1.5-8. 0 Not Available [facility] (Lab) [address] [facility], [place], [address], 11/12/2024 23:18:19 11/10/19 25 11/09/2024 CBC W/DIF F absolute lymphocytes 2.5 10'3/ uL 1.0-4. 0 Not Available [facility] (Lab) [address] [facility], [place], [address], 11/12/2024 23:18:19 11/10/19 25 11/09/2024 CBC W/DIF F absolute monocytes 0.7 10'3/ uL 0.2-1. 0 Not Available [facility] (Lab) [address] [facility], [place], [address], 11/12/2024 23:18:19 11/10/19 25 11/09/2024 CBC W/DIF F absolute eosinophils 0.2 10'3/ uL 0.0-0. 6 Not Available [facility] (Lab) [address] [facility], [place], [address], 11/12/2024 23:18:19 11/10/19 25 11/09/2024 CBC W/DIF F absolute basophils 0.0 10'3/ uL 0.0-0. 3 Not Available [facility] (Lab) [address] [facility], [place], [address], 11/12/2024 23:18:19 11/10/19 25 11/09/2024 CBC W/DIF F absolute immature granulocytes 0.0 10'3/ uL 0.00-0 .10 Refer ence range s for nonbi nary/ inter sex or unspe cifie d gende r patie nts have not been estab lishe d. Plevicky e refer to the follo wing table for range s estab lishe d for cisge nder patie nts and evalu ate in the clini beena farrukh xt of the indiv idual patie nt: https :[email or web address] ronnell book. nm.or g/gen derx Not Available [facility] (Lab) [address], [place], [address], 11/12/2024 23:18:19 11/10/19 25 11/09/2024 HEPAT ITIS C ANTIB VILMA SCREE N, REFLE X TO CONFI RMATI ON hepatitis C antibody Non-re active non-re active Antib odies to HCV Not Detec liset, does not exclu de the possi bilit y of expos ure to HCV. Not Available [facility] (Lab) [address], [place], [address], 11/12/2024 23:18:19 11/10/19 25 11/09/2024 HIV 1/2 ANTIG EN/AN TIBOD Y, REFLE X CONFI RMATI ON HIV antigen/anti body Nonrea ctive nonrea ctive HIV-1 antig en and HIV-1 /HIV- 2 antib odies were not detec liset. No labor atory evide nce of HIV infec tion. Not Available [facility] (Lab) [address], [place], [address], 11/12/2024 23:18:19 11/10/19 25 11/09/2024 HEPAT ITIS B SURFA CE ANTIG EN hepatitis B surface antigen Non-re active non-re active This assay was perfo rmed using [employer] ratio n reage nts and test kits. Value s obtai sheree with other assay metho ds or kits canno t be used inter trevino eably . Not Available [facility] (Lab) [address], [place], [address], 11/12/2024 23:18:20 11/10/19 25 11/09/2024 RUBEL LA IGG ANTIB VILMA, QUANT rubella antibodies, IgG Reacti ve reacti ve Not Available [facility] (Lab) [address] [facility], [place], [address], 11/12/2024 23:18:20 11/10/19 25 11/09/2024 RUBEL LA IGG ANTIB VILMA, QUANT rubella antibodies, IgG quant 33.6 IU/mL >=10 Non-r eacti ve (Non- Immun e) <10 IU/mL React roby (Immu ne) > or = 10 IU/mL Not Available [facility] (Lab) [address] [facility], [place], [address], 11/12/2024 23:18:20 11/10/19 25 11/09/2024 TYPE/ RH/SC REEN ABO/Rh type A POS Not Available [facility] (Lab) [address] [facility], [place], [address], 11/12/2024 23:18:20 11/10/19 25 11/09/2024 TYPE/ RH/SC REEN antibody screen NEG Not Available [facility] (Lab) [address] [facility], [place], [address], 11/12/2024 23:18:20 11/10/19 25 11/09/2024 TYPE/ RH/SC REEN exp date 2024 23:59 Not Available [facility] (Lab) [address] [facility], [place], [address], 11/12/2024 23:18:20 11/10/19 25 11/09/2024 RPR SCREE N, REFLE X TITER /CONF IRMAT ION RPR qualitative Nonrea ctive nonrea ctive Not Available [facility] (Lab) [address] [facility], [place], [address], 11/12/2024 23:18:21 11/10/19 25 11/09/2024 HEMOG LOBIN A1C hemoglobin A1C 5.0 % 4.0-5. 6 The Ameri can [employer] smitha [employer] i[employer] n recom mends that a prima ry goal of thera diane chaney d be a HBA1C of < 7% and that physi ciadavid chaney d reeva lufredrick the treat ment regim en in patie nts with HBA1C value s consi stent ly > 8%. <5.7% Salome l 5.7 - 6.4% Incre ased risk for diabe smitha >=6.5 % Diagn ostic of diabe smitha <7.0% Goal of thera py >8.0% Actio n sugge sted Not Available [facility] (Lab) [address] [facility], [place], [address], 11/12/2024 23:18:21 11/10/19 25 11/09/2024 CULTU RE: URINE result report SEE RESULT S BELOW abnormal Test: Cultu re: Urine Speci men Sourc e: Urine - Clean Catch Speci men Type: Urine Speci men Date: 2024 1740 Resul t Date: 025 2214 Resul t Statu s: Final resul t Abnor mal: Yes Resul carlos Lab: [facility] [address] [facility] [address] Tel: CULTU RE ----- ----- ----- --- 10,00 0-25, 000 CFU/m l Esche kelly a coli (Abno rmal) SUSCE PTIBI LITY ----- ----- ----- --- Esche kelly a coli METHO D BRYAN ----- ----- ----- ----- ----- ---- ----- ----- ----- ----- ----- AMPIC ILLIN >16 ug/mL Resis tant AMPIC ILLIN /SULB ACTAM >16 ug/mL Resis tant AZTRE ONAM <=4 ug/mL Susce ptibl e CEFAZ KENDAL 16 ug/mL Susce ptibl e CEFEP DANIELLA <=2 ug/mL Susce ptibl e CEFTA ZIDIM E <=1 ug/mL Susce ptibl e CEFTR IAXON E <=1 ug/mL Susce ptibl e CIPRO FLOXA CARLOS <=0.2 5 ug/mL Susce ptibl e GENTA MICIN <=2 ug/mL Susce ptibl e LEVOF LOXAC IN <=0.5 ug/mL Susce ptibl e MEROP ENEM <=1 ug/mL Susce ptibl e NITRO FURAN TOIN <=32 ug/mL Susce ptibl e PIPER ACILL IN/TA ZOBAC FLORES <=8 ug/mL Susce ptibl e TOBRA MYCIN <=2 ug/mL Susce ptibl e TRIME THOPR IM/REYES LFAME THOXA ZOLE <=0.5 ug/mL Susce ptibl e Not Available [facility] (Lab) [address], [place], [address], 11/12/2024 23:18:21 11/11/19 25 11/10/2024 drug scree n, urine Amphetamines : negati ve Not Available [address], [place], [address], 11/10/2024 15:41:40 11/11/19 25 11/10/2024 drug scree n, urine Cannabinoids : negati ve Not Available [address], [place], [address], 11/10/2024 15:41:40 11/11/19 25 11/10/2024 drug scree n, urine Cocaine: negati ve Not Available [address], [place], [address], 11/10/2024 15:41:40 11/11/19 25 11/10/2024 drug scree n, urine Opiates: negati ve Not Available [address], [place], [address], 11/10/2024 15:41:40 11/11/19 25 11/10/2024 drug scree n, urine Phenocyclidi ne: negati ve Not Available [address], [place], [address], 11/10/2024 15:41:40 11/11/19 25 11/10/2024 drug scree n, urine Barbiturates : negati ve Not Available [address], [place], [address], 11/10/2024 15:41:40 11/11/19 25 11/10/2024 drug scree n, urine Benzodiazepi trent: negati ve Not Available [address], [place], [address], 11/10/2024 15:41:40 11/11/19 25 11/10/2024 drug scree n, urine Ethanol: negati ve Not Available [address], [place], [address], 11/10/2024 15:41:40 11/11/19 25 11/10/2024 drug scree n, urine Hallucinogen s: negati ve Not Available [address], [place], [address], 11/10/2024 15:41:40 11/11/19 25 11/10/2024 drug scree n, urine Inhalants: negati ve Not Available [address], [place], [address], 11/10/2024 15:41:40 11/11/19 25 11/10/2024 drug scree n, urine Anabolic Steroids: negati ve Not Available [address], [place], [address], 11/10/2024 15:41:40 11/11/19 25 11/10/2024 drug scree n, urine Other: negati ve Not Available [address], [place], [address], 11/10/2024 15:41:40 01/31/20 25 01/30/2025 CMP/C BC/UR IC ACID uric acid 3.7 mg/dL 2.3-6. 6 Not Available [facility] (Lab) [address] [facility], [place], [address], 01/31/2025 05:01:03 01/31/20 25 01/30/2025 CMP/C BC/UR IC ACID sodium 139 mmol/ L 133-14 6 Not Available [facility] (Lab) [address] [facility], [place], [address], 01/31/2025 05:01:03 01/31/20 25 01/30/2025 CMP/C BC/UR IC ACID potassium 3.7 mmol/ L 3.5-5. 1 Not Available [facility] (Lab) [address] [place], [address], 01/31/2025 05:01:03 01/31/20 25 01/30/2025 CMP/C BC/UR IC ACID chloride 105 mmol/ L 98-107 Not Available [facility] (Lab) [address] [facility], [place], [address], 01/31/2025 05:01:03 01/31/20 25 01/30/2025 CMP/C BC/UR IC ACID carbon dioxide 24 mmol/ L 21-31 Not Available [facility] (Lab) [address] [place], [address], 01/31/2025 05:01:03 01/31/20 25 01/30/2025 CMP/C BC/UR IC ACID anion gap 10 mmol/ L 4-13 Not Available [facility] (Lab) [address] [place], [address], 01/31/2025 05:01:03 01/31/20 25 01/30/2025 CMP/C BC/UR IC ACID blood urea nitrogen 5 mg/dL 7-25 low Not Available [facility] (Lab) [address] [place], [address], 01/31/2025 05:01:03 01/31/20 25 01/30/2025 CMP/C BC/UR IC ACID creatinine 0.48 mg/dL 0.60-1 .30 low Not Available [facility] (Lab) [address] [facility], [place], [address], 01/31/2025 05:01:03 01/31/20 25 01/30/2025 CMP/C BC/UR IC ACID egfrcr (CKD-epi 2020) >90 mL/mi n/1.7 3_m2 >=60 Not Available [facility] (Lab) [address] [facility], [place], [address], 01/31/2025 05:01:03 01/31/20 25 01/30/2025 CMP/C BC/UR IC ACID calcium 9.2 mg/dL 8.3-10 .5 Not Available [facility] (Lab) [address] [facility], [place], [address], 01/31/2025 05:01:03 01/31/20 25 01/30/2025 CMP/C BC/UR IC ACID glucose 97 mg/dL 70-100 Not Available [facility] (Lab) [address] [facility], [place], [address], 01/31/2025 05:01:03 01/31/20 25 01/30/2025 CMP/C BC/UR IC ACID protein, total 6.3 g/dL 6.4-8. 3 low Not Available [facility] (Lab) [address] [facility], [place], [address], 01/31/2025 05:01:03 01/31/20 25 01/30/2025 CMP/C BC/UR IC ACID albumin 3.6 g/dL 3.5-5. 0 Not Available [facility] (Lab) [address] [place], [address], 01/31/2025 05:01:03 01/31/20 25 01/30/2025 CMP/C BC/UR IC ACID ALT 10 units /L 9-43 Not Available [facility] (Lab) [address] [place], [address], 01/31/2025 05:01:03 01/31/20 25 01/30/2025 CMP/C BC/UR IC ACID alkaline phosphatase 73 units /L 34-104 Not Available [facility] (Lab) [address] [place], [address], 01/31/2025 05:01:03 01/31/20 25 01/30/2025 CMP/C BC/UR IC ACID AST 10 units /L 13-39 low Not Available [facility] (Lab) [address] [place], [address], 01/31/2025 05:01:03 01/31/20 25 01/30/2025 CMP/C BC/UR IC ACID bilirubin, total 0.2 mg/dL 0.2-1. 2 Not Available [facility] (Lab) [address] [place], [address], 01/31/2025 05:01:03 01/31/20 25 01/30/2025 CMP/C BC/UR IC ACID WBC 8.3 10'3/ uL 3.5-10 .5 Not Available [facility] (Lab) [address] [place], [address], 01/31/2025 05:01:03 01/31/20 25 01/30/2025 CMP/C BC/UR IC ACID RBC 4.01 10'6/ uL (based on docume nted legal sex) 3.80-5 .20 Not Available [facility] (Lab) [address] [place], [address], 01/31/2025 05:01:03 01/31/20 25 01/30/2025 CMP/C BC/UR IC ACID HGB 11.8 g/dL (based on docume nted legal sex) 11.6-1 5.4 Not Available [facility] (Lab) [address], [place], [address], 01/31/2025 05:01:03 01/31/20 25 01/30/2025 CMP/C BC/UR IC ACID HCT 36.0 % (based on docume nted legal sex) 34.0-4 5.0 Not Available [facility] (Lab) [address], [place], [address], 01/31/2025 05:01:03 01/31/20 25 01/30/2025 CMP/C BC/UR IC ACID MCV 89.8 fL 80.0-9 9.0 Not Available [facility] (Lab) [address], [place], [address], 01/31/2025 05:01:03 01/31/20 25 01/30/2025 CMP/C BC/UR IC ACID MCH 29.4 pg 27.0-3 4.0 Not Available [facility] (Lab) [address], [place], [address], 01/31/2025 05:01:03 01/31/20 25 01/30/2025 CMP/C BC/UR IC ACID MCHC 32.8 g/dL 32.0-3 5.5 Not Available [facility] (Lab) [address] [place], [address], 01/31/2025 05:01:03 01/31/20 25 01/30/2025 CMP/C BC/UR IC ACID RDW 13.5 % 11.0-1 5.0 Not Available [facility] (Lab) [address] [place], [address], 01/31/2025 05:01:03 01/31/20 25 01/30/2025 CMP/C BC/UR IC ACID plt 211 10'3/ uL 150-40 0 Not Available [facility] (Lab) [address] [place], [address], 01/31/2025 05:01:03 01/31/20 25 01/30/2025 CMP/C BC/UR IC ACID MPV 11.9 fL 8.8-12 .1 Not Available [facility] (Lab) [address] [facility], [place], [address], 01/31/2025 05:01:03 01/31/20 25 01/30/2025 CMP/C BC/UR IC ACID NRBC's 0.0 % 0.0 Not Available [facility] (Lab) [address] [facility], [place], [address], 01/31/2025 05:01:03 01/31/20 25 01/30/2025 CMP/C BC/UR IC ACID absolute NRBCs 0.0 10'3/ uL no refere nce range establ ished Not Available [facility] (Lab) [address] [facility], [place], [address], 01/31/2025 05:01:03 01/31/20 25 01/30/2025 CMP/C BC/UR IC ACID neutrophils 72.0 % 34.0-7 3.0 Not Available [facility] (Lab) [address] [place], [address], 01/31/2025 05:01:03 01/31/20 25 01/30/2025 CMP/C BC/UR IC ACID lymphocytes 18.5 % 15.0-5 0.0 Not Available [facility] (Lab) [address] [place], [address], 01/31/2025 05:01:03 01/31/20 25 01/30/2025 CMP/C BC/UR IC ACID monocytes 6.9 % 1.0-15 .0 Not Available [facility] (Lab) [address] [place], [address], 01/31/2025 05:01:03 01/31/20 25 01/30/2025 CMP/C BC/UR IC ACID eosinophils 1.3 % 0.0-8. 0 Not Available [facility] (Lab) [address] [facility], [place], [address], 01/31/2025 05:01:03 01/31/20 25 01/30/2025 CMP/C BC/UR IC ACID basophils 0.5 % 0.0-2. 0 Not Available [facility] (Lab) [address] [facility], [place], [address], 01/31/2025 05:01:03 01/31/20 25 01/30/2025 CMP/C BC/UR IC ACID immature granulocytes 0.8 % no define d refere nce range Immat ure Granu locyt es (IG) repre sents autom ated enume ratio n of Metam yeloc ytes, Myelo cytes and Promy elocy smitha when IG is < 5%. Blast s are not inclu ded in IG and repor liset separ ately if prese nt. Not Available [facility] (Lab) [address] [facility], [place], [address], 01/31/2025 05:01:03 01/31/20 25 01/30/2025 CMP/C BC/UR IC ACID absolute neutrophils 6.0 10'3/ uL 1.5-8. 0 Not Available [facility] (Lab) [address] [facility], [place], [address], 01/31/2025 05:01:03 01/31/20 25 01/30/2025 CMP/C BC/UR IC ACID absolute lymphocytes 1.5 10'3/ uL 1.0-4. 0 Not Available [facility] (Lab) [address] [facility], [place], [address], 01/31/2025 05:01:03 01/31/20 25 01/30/2025 CMP/C BC/UR IC ACID absolute monocytes 0.6 10'3/ uL 0.2-1. 0 Not Available [facility] (Lab) [address] [facility], [place], [address], 01/31/2025 05:01:03 01/31/20 25 01/30/2025 CMP/C BC/UR IC ACID absolute eosinophils 0.1 10'3/ uL 0.0-0. 6 Not Available [facility] (Lab) [address] [place], [address], 01/31/2025 05:01:03 01/31/20 25 01/30/2025 CMP/C BC/UR IC ACID absolute basophils 0.0 10'3/ uL 0.0-0. 3 Not Available [facility] (Lab) [address] [facility], [place], [address], 01/31/2025 05:01:03 01/31/20 25 01/30/2025 CMP/C BC/UR IC ACID absolute immature granulocytes 0.1 10'3/ uL 0.00-0 .10 Refer ence range s for nonbi nary/ inter sex or unspe cifie d gende r patie nts have not been estab lishe d. Pleas e refer to the chhayao wing table for range s estab lishe d for cisge nder patie nts and evalu ate in the clini beena farrukh xt of the indiv idual patie nt: https :[email or web address] reynaga book. nm.or g/gen derx Not Available [facility] (Lab) [address], [place], [address], 01/31/2025 05:01:03 01/31/20 25 01/30/2025 PROTE IN/CR EATIN INE RATIO , URINE creatinine, urine 11.2 mg/dL R-No refer ence range estab lishe d for this assay Not Available [facility] (Lab) [address] [place], [address], 01/31/2025 05:01:04 01/31/20 25 01/30/2025 PROTE IN/CR EATIN INE RATIO , URINE protein, urine <4 mg/dL R-No refer ence range estab lishe d for this assay Not Available [facility] (Lab) [address] [facility], [place], [address], 01/31/2025 05:01:04 01/31/20 25 01/30/2025 PROTE IN/CR EATIN INE RATIO , URINE protein/crea tinine ratio, urine . No Refer ence Range avail able for Rando m Urine s. Unabl e to perfo rm calcu latio n due to low elena te franco ntrat ion A prote in to creat inine ratio of >=0.1 9 is a good predi ctor of signi fican t prote inuri a. A level of <0.14 can rule out signi fican t prote inuri a. Not Available [facility] (Lab) [address] [facility], [place], [address], 01/31/2025 05:01:04 02/28/20 25 02/27/2025 GTT - GESTA MARVEL L SCREE N, ACOG OB glucose, 1 hour screen 162 mg/dL 70-135 high Not Available [facility] (Lab) [address], [place], [address], 02/28/2025 11:58:20 02/28/20 25 02/27/2025 HEMAT OCRIT (HCT) HCT 35.3 % (based on docume nted legal sex) 34.0-4 5.0 Not Available [facility] (Lab) [address], [place], [address], 02/28/2025 11:58:20 02/28/20 25 02/27/2025 HEMOG LOBIN (HGB) HGB 11.5 g/dL (based on docume nted legal sex) 11.6-1 5.4 low Not Available [facility] (Lab) [address], [place], [address], 02/28/2025 11:58:21 02/28/20 25 02/27/2025 HIV 1/2 ANTIG EN/AN TIBOD Y, REFLE X CONFI RMATI ON HIV antigen/anti body Nonrea ctive nonrea ctive HIV-1 antig en and HIV-1 /HIV- 2 antib odies were not detec liset. No labor atory evide nce of HIV infec tion. Not Available [facility] (Lab) [address], [place], [address], 02/28/2025 11:58:21 02/28/20 25 02/27/2025 RPR SCREE N, REFLE X TITER /CONF IRMAT ION RPR qualitative Nonrea ctive nonrea ctive Not Available [facility] (Lab) [address], [place], [address], 02/28/2025 11:58:22 03/06/20 25 03/06/2025 GTT - GESTA MARVEL L, 3 HOUR, ACOG glucose, fasting acog 75 mg/dL 70-94 Not Available [facility] (Lab) [address] [place], [address], 03/09/2025 14:10:52 03/06/20 25 03/06/2025 GTT - GESTA MARVEL L, 3 HOUR, ACOG glucose, 1 hour acog 166 mg/dL 70-179 Not Available [facility] (Lab) [address] [place], [address], 03/09/2025 14:10:52 03/06/20 25 03/06/2025 GTT - GESTA MARVEL L, 3 HOUR, ACOG glucose, 2 hour acog 153 mg/dL 70-154 Not Available [facility] (Lab) [address] [place], [address], 03/09/2025 14:10:52 03/06/20 25 03/06/2025 GTT - GESTA MARVEL L, 3 HOUR, ACOG glucose, 3 hour acog 129 mg/dL 70-139 Not Available [facility] (Lab) [address] [place], [address], 03/09/2025 14:10:52 04/26/20 25 04/26/2025 CULTU RE: GROUP B STREP SCREE N, REFLE X SUSCE PTIBI LITY result report SEE RESULT S BELOW Test: Cultu re: Group B Strep , Refle x Susce ptibi lity ([facility]/ [facility] ) Speci men Sourc e: Vagin a/Rec lupe Speci men Type: Vagin al/Re ctal Speci men Date: 04/26 1341 Resul t Date: 04/29 1451 Resul t Statu s: Final resul t Abnor mal: No Resul ting Lab: [facility] [address] [facility] [address] Tel: CULTU RE ----- ----- ----- --- No Group B strep isola liset at 2 days (palmer ctive broth enhan cemen t) Not Available [facility] (Lab) [address], [place], [address], 04/29/2025 15:53:56 10/11/19 25 10/10/2024 [place], obste tric, 1st trime ster No observ ation record ed. [email or web address] [address], [place], [address], 10/10/2024 11:04:01 11/10/19 25 11/09/2024 US, obste tric, nucha l trans lucen cy No observ ation record ed. [facility] [address], [place], [address], 11/09/2024 18:22:59 11/10/19 25 11/09/2024 US, obste tric, nucha l trans lucen cy No observ ation record ed. [email or web address] [address], [place], [address], 11/09/2024 22:19:50 01/03/20 25 01/02/2025 US, obste tric, 2nd or 3rd trime ster No observ ation record ed. [email or web address] [place] [address], [place], [address], 01/02/2025 18:17:38 01/03/20 25 01/02/2025 US, obste tric, follo w-up No observ ation record ed. [address], [place], [address], 01/09/2025 17:57:54 01/03/20 25 01/02/2025 US, obste tric, 2nd or 3rd trime ster No observ ation record ed. [email or web address] [address], [place], [address], 01/03/2025 18:02:23 01/03/20 25 01/02/2025 US, obste tric, 2nd or 3rd trime ster No observ ation record ed. [email or web address] [address], [place], [address], 01/03/2025 18:02:23 03/18/20 25 03/17/2025 imagi ng/di agnos tic resul t No observ ation record ed. [address] [address], [place], [address], 03/20/2025 11:13:18 03/20/20 25 03/18/2025 US, salin e infus ed uteru s No observ ation record ed. [email or web address], [place], [address], 03/20/2025 16:12:25 03/22/20 25 03/22/2025 non-s tress test No observ ation record ed. [email or web address] [place] [address], [place], [address], 03/22/2025 11:55:23 03/22/20 25 03/20/2025 non-s tress test No observ ation record ed. [email or web address] Not Available 03/22 23:40:54 03/27/20 25 03/27/2025 US, obste tric, follo w-up No observ ation record ed. [email or web address] [place] [address], [place], [address], 03/27/2025 13:07:17 03/27/20 25 03/27/2025 US, obste tric, bioph ysica l profi le + non-s tress test No observ ation record ed. [email or web address] [place] [address], [place], [address], 03/27/2025 13:07:42 03/27/20 25 03/27/2025 US, obste tric, follo w-up No observ ation record ed. [address], [facility], [place], [address], 03/27/2025 10:39:08 03/27/2003/27/2025 non-s tress test No observ ation record ed. [email or web address] [place] [address], [place], [address], 03/27/2025 11:15:38 03/27/20 non-s tress test No observ ation record ed. [email or web address] [place] [address], [place], [address], 03/27/2025 11:06:00 04/03/20 25 04/03/2025 US, obste tric, bioph ysica l profi le + non-s tress test No observ ation record ed. [email or web address] [facility] [address], [place], [address], 04/03/2025 18:27:14 04/03/20 25 04/03/2025 US, obste tric, bioph ysica l profi le + non-s tress test No observ ation record ed. [email or web address] [address], [place], [address], 04/04/2025 18:59:15 04/03/20 25 04/03/2025 non-s tress test No observ ation record ed. OLIVIA [place] [address], [place], [address], 04/04/2025 10:33:24 04/03/20 25 non-s tress test No observ ation record ed. [email or web address] [place] [address], [place], [address], 04/03/2025 11:35:14 04/10/20 25 04/11/2025 US, obste tric, bioph ysica l profi le + non-s tress test No observ ation record ed. [email or web address] [place] [address], [place], [address], 04/11/2025 12:31:31 04/10/20 25 04/10/2025 US, obste tric, bioph ysica l profi le + non-s tress test No observ ation record ed. [email or web address] [address], [place], [address], 04/10/2025 14:16:39 04/10/20 25 04/10/2025 non-s tress test No observ ation record ed. [place] [address], [place], [address], 04/10/2025 14:16:00 04/10/20 25 non-s tress test No observ ation record ed. [email or web address] [place] [address], [place], [address], 04/10/2025 14:16:00 04/18/20 25 04/18/2025 US, obste tric, bioph ysica l profi le + non-s tress test No observ ation record ed. [email or web address] [place] [address], [place], [address], 04/18/2025 18:03:02 04/18/2004/18/2025 US, obste tric, bioph ysica l profi le + non-s tress test No observ ation record ed. [email or web address] [address], [place], [address], 04/21/2025 01:47:31 04/18/2004/18/2025 non-s tress test No observ ation record ed. [email or web address] [place] [address], [place], [address], 04/19/2025 16:02:09 04/18/20 non-s tress test No observ ation record ed. [email or web address] [place] [address], [place], [address], 04/18/2025 17:19:05 04/25/2004/25/2025 US, obste tric, follo w-up No observ ation record ed. [email or web address] [place] [address], [place], [address], 04/25/2025 18:00:59 04/25/2004/25/2025 US, obste tric, bioph ysica l profi le + non-s tress test No observ ation record ed. [email or web address] [place] [address], [place], [address], 04/25/2025 18:00:41 04/25/2004/25/2025 US, obste tric, follo w-up No observ ation record ed. [email or web address] [address], [place], [address], 04/25/2025 19:59:27 04/25/2004/26/2025 non-s tress test No observ ation record ed. [email or web address] [place] [address], [place], [address], 04/26/2025 12:42:17 04/25/20 non-s tress test No observ ation record ed. [place] [address], [place], [address], 04/25/2025 18:05:07 05/01/2005/01/2025 US, obste tric, bioph ysica l profi le + non-s tress test No observ ation record ed. [email or web address] [place] [address], [place], [address], 05/01/2025 11:27:23 05/01/2005/01/2025 US, obste tric, bioph ysica l profi le + non-s tress test No observ ation record ed. OLIVIA [address], [facility], [place], [address], 05/01/2025 21:15:25 05/02/2005/02/2025 non-s tress test No observ ation record ed. [facility] [address], [place], [address], 05/02/2025 17:00:00 05/02/2005/01/2025 non-s tress test No observ ation record ed. [email or web address] Not Available 2024 15:39:46 05/02/20 non-s tress test No observ ation record ed. [email or web address] Not Available 2024 15:39:46 05/08/20 25 05/08/2025 US, obste tric, bioph ysica l profi le + non-s tress test No observ ation record ed. [email or web address] [place] [address], [place], [address], 05/08/2025 13:28:33 05/08/2005/08/2025 US, obste tric, bioph ysica l profi le + non-s tress test No observ ation record ed. [email or web address] [address], [place], [address], 05/08/2025 10:25:28 05/08/2005/08/2025 non-s tress test No observ ation record ed. [address], [place], [address], 05/08/2025 11:20:04 05/08/20 non-s tress test No observ ation record ed. [address], [place], [address], 05/08/2025 11:21:52 Result Notes None recorded. Problems Name Problem SNOMED Code Status Onset Date Resolution Date Notes Provider Name and Address Organization Details Recorded Time 04063057 Active [address] [facility] 10:29:46 Chronic hypertens ion complicat ing AND/OR reason for care during 38137375 Active 2024 - elevated BP in office at 24 weeks, asymptomat ic - on chart review, multiple elevated BP outside of - baseline labs ordered - plan for 32 week testing JACK RHODES MD [address], [place], [address], [facility] 11:42:33 Problem Notes None recorded. Procedures Surgical History Date Name Laterality Status Provider Name and Address Organization Details Recorded Time SIS completed JACK RHODES MD [address], [place], [address], [facility] 08/15/2024 22:58:22 4 Date of Last Pap Smear completed Rosita [facility] 07/27/2024 14:07:04 3 Dilation and Curettage completed Rosita [facility] 04/27/2024 09:48:11 Imaging Results None recorded. [...] weight Body mass index (BMI) Body height Body height Body mass index (BMI) Body weight Systolic And Diastolic Systolic And Diastolic Provider Name and Address Organization Details Last Updated DateTime 5 75626.3 977 g 38.4 kg/m2 157.48 cm 157.48 cm 38.4 kg/m2 37546.4 g 134/90 mm[Hg] 134/90 mm[Hg] Norma Goodman [facility] 5 11:19:04 Social History Question Answer Notes LastModified by Organizat ion Details LastModified Time How Many Years Have You Consumed Alcohol? 7 [email or web address] Information not available 04/27/2024 Are You Blind Or Do You Have Difficulty Seeing? No [email or web address] Information not available 04/27/2024 What Is Your Level Of Caffeine Consumption? Heavy [email or web address] Information not available 04/27/2024 How Much Tobacco Do You Chew? None [email or web address] Information not available 04/27/2024 In The 14 Days Before Symptom Onset, Have You Had Close Contact With A Laboratory-confirme d COVID-19 While That Case Was Ill? No [email or web address] Information n ot available 04/27/2024 In The 14 Days Before Symptom Onset, Have You Had Close Contact With A Person Who Is Under Investigation For COVID-19 While That Person Was Ill? No [email or web address] Information not available 04/27/2024 Have You Been To An Area Known To Be High Risk For COVID-19? No [email or web address] Information not available 04/27/2024 Are You Deaf Or Do You Have Serious Difficulty Hearing? No [email or web address] Information not available 04/27/2024 What Type Of Diet Are You Following? REGULAR [email or web address] Information n ot available 04/27/2024 What Is The Highest Grade Or Level Of School You Have Completed Or The Highest Degree You Have Received? [id number] [email or web address] Information not available 04/27/2024 Are There Any Guns Present In Your Home? Yes [email or web address] Information not available 04/27/2024 Do You Use Protection During Sex? No [email or web address] Information not available 04/27/2024 Do You Use Your Seat Belt Or Car Seat Routinely? Yes [email or web address] Information not available 04/27/2024 Are You Sexually Active? Yes Information not available 07/27/2024 Do You Have Smoke And Carbon Monoxide Detectors In Your Home? Yes [email or web address] Information not available 04/27/2024 How Much Tobacco Do You Smoke? No [email or web address] Information not available 04/27/2024 Do You Use Sunscreen Routinely? Yes [email or web address] Information not available 04/27/2024 Have You Used IV Drugs? No [email or web address] Information not available 04/27/2024 Do You Have Difficulty Walking Or Climbing Stairs? No [email or web address] Information not available 07/27/2024 Sex: Unknown Functional Status Question Answer Note LastModified by Organizat ion Details LastModified Time Do you use any illicit or recreational drugs? No [email or web address] Information not available 04/27/2024 What is your level of alcohol consumption? Moderate [email or web address] Information not available 04/27/2024 Are you currently employed? Yes [email or web address] Information not available 07/27/2024 Are you able to walk independently without assistance or assistive devices? YESWOREST [email or web address] Information not available 04/27/2024 Are you able to care for yourself independently? 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 No [email or web address] Information not available 07/27/2024 What is your exercise level? None [email or web address] Information not available 04/27/2024 Mental Status Question Answer Note LastModified by Organization D etails LastModified Time Do you feel stressed (tense, restless, nervous, or anxious, or unable to sleep at night)? [id number] Information not available 04/27/2024 Family History Relationship Description Onset Age of this Age Resolved Age Notes LastModified by Organization Details LastModified Time Mother Disorder of thyroid gland [email or web address] Not available 2023 09:48:11 Maternal Aunt Disorder of thyroid gland [email or web address] Not available 2023 09:48:11 Brother Hypercholest erolemia [email or web address] Not available 2023 09:48:11 Paternal Grandfather Heart disease [email or web address] Not available 2023 09:48:11 Medical History Condition Response Allergies (Food, seasonal, environmental ) N Other N Drug/Latex Allergies/Reactions N Blood Transfusion N Breast Cancer N Dermatologic Disorders N Lung Disease N Defects or Inherited Disease N Breast Problem N Gestational Diabetes N Hematologic disorders N Anesthesia Complications N History of STI N Deep Vein Thrombosis N Polycystic ovary syndrome N Anxiety Disorder N Autoimmune disease N Arthritis N Polyps N Infertility N Acid Reflux (GERD) N History of abnormal pap N Cancer N Varicosities N Stroke N Neurologic/Epilepsy N Endometriosis N High Cholesterol N Fibromyalgia N Headaches N Kidney Disease N Heart Problems N Thyroid Problems N Kidney or Bladder Problems N GI Problems N Eating Disorder [...] ICD10 Code Diagnosis IMO Codes Diagnosis Note [id number] JACK RHODES MD [place] [address] [address] 04/10/2025 09:22:39 04/10/2025 09:54:16 Chronic hypertension complicating AND/OR reason for care during 30132233 O10.913 Z3A.34 08722914 - elevated BP in office at 24 weeks, asymptomat ic- on chart review, multiple elevated BP outside of - baseline labs wnl- continue weekly testing [id number] MD Lenore TUTTLE [address] [address] 04/10/2025 09:22:56 04/10/2025 10:42:15 Maternal obesity complicating , childbirth and the puerperium, antepartum 5810376945 07 O99.210 1373524604 [id number] JACK RHODES MD [place] [address],[place] [address] 04/10/2025 09:23:13 04/10/2025 11:14:34 Chronic hypertension complicating AND/OR reason for care during 83616169 O10.919 14135224 - elevated BP in office at 24 weeks, asymptomat ic- on chart review, multiple elevated BP outside of - baseline labs wnl- continue weekly testing Gestation period, 34 weeks 84422700 Z3A.34 5348712 [id number] JACK RHODES MD [place] [address],[place] [address] 04/18/2025 16:15:32 04/18/2025 16:57:27 Essential hypertension complicating AND/OR reason for care during 21972393 O10.013 Z3A.35 0351357 [id number] JACK RHODES MD [place] [address],[place] [address] 04/18/2025 16:15:58 04/18/2025 17:20:30 Maternal obesity complicating , childbirth and the puerperium, antepartum 9531838713 07 O99.210 E66.09 8693698497 [id number] JACK RHODES MD [place] [address],[place] [address] 04/18/2025 16:16:23 04/18/2025 17:59:57 Chronic hypertension complicating AND/OR reason for care during 66924589 O10.919 98672881 - elevated BP in office at 24 weeks, asymptomat ic- on chart review, multiple elevated BP outside of - baseline labs wnl- continue weekly testing Gestation period, 35 weeks 97624697 Z3A.35 5805882 [id number] JACK RHODES MD [place] [address],[place] [address] 04/25/2025 16:17:33 04/25/2025 16:57:53 Essential hypertension complicating AND/OR reason for care during 55998610 O10.013 Z3A.36 5212223 [id number] JACK RHODES MD [place] [address],[place] [address] 04/25/2025 16:17:57 04/25/2025 18:03:35 Chronic hypertension complicating AND/OR reason for care during 37081218 O10.919 98190844 - elevated BP in office at 24 weeks, asymptomat ic- on chart review, multiple elevated BP outside of - baseline labs wnl- continue weekly testing [id number] JACK RHODES MD [place] [address],[place] [address] 04/25/2025 16:18:16 04/26/2025 08:25:30 Chronic hypertension complicating AND/OR reason for care during 22771060 O10.919 15516409 - elevated BP in office at 24 weeks, asymptomat ic- on chart review, multiple elevated BP outside of - baseline labs wnl- continue weekly testing Gestation period, 36 weeks 01274770 Z3A.36 4128248 - continue PNV [id number] JACK RHODES MD [place] [address],[place] [address] 05/01/2025 09:56:29 05/01/2025 10:24:07 Essential hypertension complicating AND/OR reason for care during 68160554 O10.013 Z3A.37 5198564 [id number] JACK RHODES MD [place] [address],[place] [address] 05/01/2025 09:57:00 05/02/2025 12:08:45 Chronic hypertension complicating AND/OR reason for care during 76679999 O10.913 44761781 - elevated BP in office at 24 weeks, asymptomat ic- on chart review, multiple elevated BP outside of - baseline labs wnl- continue weekly testing [id number] JACK RHODES MD [place] [address],[place] [address] 05/01/2025 09:57:27 05/01/2025 16:16:48 Chronic hypertension complicating AND/OR reason for care during 44571670 O10.919 25406583 - elevated BP in office at 24 weeks, asymptomat ic- on chart review, multiple elevated BP outside of - baseline labs wnl- continue weekly testing Gestation period, 37 weeks 57422703 Z3A.37 5428705 - continue pNV [id number] JACK RHODES MD [place] [address],[place] [address] 05/08/2025 10:00:06 05/08/2025 10:25:13 Maternal hypertension 671377925 O16.3 O10.913 Z3A.38 0765029 [id number] JACK RHODES MD [place] [address],[place] [address] 05/08/2025 10:00:43 05/08/2025 11:33:40 Chronic hypertension complicating AND/OR reason for care during 46886879 O10.919 07863368 [id number] JACK RHODES MD [place] [address],[place] [address] 05/08/2025 10:00:57 05/08/2025 11:42:56 Chronic hypertension complicating AND/OR reason for care during 82492449 O10.919 68637964 - induction today at 38 weeks Gestation period, 38 weeks 33317515 Z3A.38 2870102 - continue PNV Health Concerns Section Related Observation LastModified by Organization Detai ls LastModified Time None Recorded Concern Status LastModified by Organization Details LastModified Time None Recorded Payers Encounter Date Sequence Insurance Name Policy Number Policy Garcia Covered Member ID Garcia Member ID Guarantor Name 05/08/2025 1 [facility] ([facility] [id number] Tito Tamayo [id number] Leelee Tamayo Notes Date Note Type Note Provider Name and Address Organization Details Recorded Time 05/08/2025 text/html Generic HPI TemplateReported by Patient JACK RHODES MD [address], [place], [address], [facility] 05/08/2025 11:41:09 OBGyn Episode Ob Episode Information Episode Created Date Number of Fetuses Patient Bloodtype Patient rh Status Prepregnancy Weight lbs Domestic Partner Domestic Partner Phone Father Name Milieu Coordinator Status 10/11/19 25 1 A Positive 194 OPEN Fetus Data First Name Last Name Admitted to NICU Weight (g) Sex Living Outcome Pediatric Complications Fetus ID Race Codes Race Delivery Type [id number] Problems Problem Notes arrhythmia noted LD - Referr al faxed to [facility] 03/23 Problem Name Start Date End Date Resolution Snomed Code Not e Chronic hypertension complicating AND/OR reason for care during 01/30/2025 23900222 - elevated BP i n office at [...] Gestation 0 [email or web address] 11/09/2024 05/20/20 25 0 Pre- Flowsheet Flowsheet Date 10/10/2024 Hopson Score Blood Edema Fundus Height Fundus Units Glucose Ketones Leukocytes Nitrite Labor Signs Protein Cervic Dilation Cervic Effacement Cervic Station Type Weight in lbs Pre/Post Dialysis Refused Weight 194.093036777007 BP Diastolic BP Location Tested BP Systolic [...] Type Weight in lbs Pre/Post Dialysis Refused 197.490716984828 BP Diastolic BP Location Tested BP Systolic [...] Type Weight in lbs Pre/Post Dialysis Refused 198.075708242476 BP Diastolic BP Location Tested BP Systolic [...] Weight in lbs Pre/Post Dialysis Refused Weight 198.349308567640 BP Diastolic BP Location Tested BP Systolic [...] Weight in lbs Pre/Post Dialysis Refused Weight 202.295409456108 BP Diastolic BP Location Tested BP Systolic [...] Weight in lbs Pre/Post Dialysis Refused Weight 202.881462057900 BP Diastolic BP Location Tested BP Systolic [...] Weight in lbs Pre/Post Dialysis Refused Weight 205.028356816205 BP Diastolic BP Location Tested BP Systolic [...] Type Weight in lbs Pre/Post Dialysis Refused 204.066578818918 BP Diastolic BP Location Tested BP Systolic [...] Weight in lbs Pre/Post Dialysis Refused Weight 203.270442425198 BP Diastolic BP Location Tested BP Systolic BP Type 87 L arm 135 sitting Fetus Heart Rate Present Fetus Movement A Yes Comments Flowsheet Date 03/27/2025 Hopson Score Blood Edema Fundus Height Fundus Units Glucose Ketones Leukocytes Nitrite Labor Signs Protein Cervic Dilation Cervic Effacement Cervic Station Type Weight in lbs Pre/Post Dialysis Refused 203.54758272191 BP Diastolic BP Location Tested BP Systolic [...] Weight in lbs Pre/Post Dialysis Refused Weight 207.810048698705 BP Diastolic BP Location Tested BP Systolic [...] Type Weight in lbs Pre/Post Dialysis Refused 206.265618194044 BP Diastolic BP Location Tested BP Systolic BP Type 85 R arm 128 sitting Fetus Heart Rate Present Fetus Movement Comments Flowsheet Date 04/10/2025 Hopson Score Blood Edema Fundus Height Fundus Units Glucose Ketones Leukocytes Nitrite Labor Signs Protein Cervic Dilation Cervic Effacement Cervic Station Type Weight in lbs Pre/Post Dialysis Refused Weight 206.628845350632 BP Diastolic BP Location Tested BP Systolic [...] Type Weight in lbs Pre/Post Dialysis Refused 206.980488741368 BP Diastolic BP Location Tested BP Systolic BP Type 93 L arm 150 sitting Fetus Heart Rate Present A 130 Fetus Movement A Yes Comments Doing well, good movement. S welling stable. No headaches, vision changes, chest pain, dyspnea, RUQ pain. MIL scheduled. BPP 10. GBS next visit. RTC 1 week. Flowsheet [...] Type Weight in lbs Pre/Post Dialysis Refused 209.743940183872 BP Diastolic BP Location Tested BP Systolic BP Type 89 L arm 131 sitting Fetus Heart Rate Present Fetus Movement A Yes Comments Flowsheet Date 04/25/2025 Hopson Score Blood Edema Fundus Height Fundus Units Glucose Ketones Leukocytes Nitrite Labor Signs Protein Cervic Dilation Cervic Effacement Cervic Station Type Weight in lbs Pre/Post Dialysis Refused Weight 209.615868235702 BP Diastolic BP Location Tested BP Systolic [...] Weight in lbs Pre/Post Dialysis Refused Weight 208.996193082735 BP Diastolic BP Location Tested BP Systolic BP Type 93 R arm 136 sitting Fetus Heart Rate Present A 130 Fetus Movement A Yes Comments Good movement. Mild cr amping, spotting with wiping today. Discussed return precations. GBS neg. BPP 04/21. RTC 1 week. Flowsheet Date 05/08/2025 Hopson Score Blood Edema Fundus Height Fundus Units Glucose Ketones Leukocytes Nitrite Labor Signs Protein Cervic Dilation Cervic Effacement Cervic Station Type Weight in lbs Pre/Post Dialysis Refused BP Diastolic BP Location Tested BP Systolic BP Type Fetus Heart Rate Present Fetus Movement Comments Flowsheet Date 05/08/2025 Hopson Score Blood Edema Fundus Height Fundus Units Glucose Ketones Leukocytes Nitrite Labor Signs Protein Cervic Dilation Cervic Effacement Cervic Station Type Weight in lbs Pre/Post Dialysis Refused Weight 210.143078341510 BP Diastolic BP Location Tested BP Systolic BP Type 90 L arm 134 sitting Fetus Heart Rate Present Fetus Movement Comments Flowsheet Date 05/08/2025 Hopson Score Blood Edema Fundus Height Fundus Units Glucose Ketones Leukocytes Nitrite Labor Signs Protein Cervic Dilation Cervic Effacement Cervic Station 0cm 50% -3 Type Weight in lbs Pre/Post Dialysis Refused 210.310320483631 BP Diastolic BP Location Tested BP Systolic BP Type 90 L arm 134 sitting Fetus Heart Rate Present A 135 Fetus Movement A Yes Comments Good movement. No cram ping or bleeding. BP elevated over the weekend, went to [facility], workup normal aside from proteinuria. Asymptomatic aside from swelling. Discussed moving induction to today due to new proteinuria and elevated BPs. Patient agreeable. SVE closed, discussed cytotec induction. BPP 04/21. Patient to present to [facility] [email or web address] for induction. Menstrual History Last Menstrual Date Menses Monthly [...]
--- OUTSIDE RECORDS SUMMARY | 2025-05-08 17:20 | XMS_ITS | Continuity of Care Document ---
Author Organization [facility] Address [address] [place] [address] [place] [address] Care Team Providers Care Carpenter Prototype Name Role Phone JALEEL DE LEON Primary [...] d. Surgeries None recorde d. Imaging US, obstetr ic, biophys ical profile + non-str ess test 2024 025 [email or web address], [address], [place], [address], 05/08/2025 17:59:34 Medication Orders None recorde d. Patient TargetsNo targets recorded. Patient InstructionsNo instructions recorded. Reason for Referral None Reported. Results Created Date Observation Date Name Description Value Unit Range Abnormal Flag Note LastModifiedBy Organization Detail LastModifiedTime 10/11/19 25 10/10/2024 CT/GC AND TRICH OMONA S VAGIN TALITA (RRNA ), URINE chlamydia trachomatis, PCR Negati ve negati ve Not Available [facility] (Lab) [address], [place], [address], 10/11/2024 14:24:20 10/11/19 25 10/10/2024 CT/GC AND TRICH OMONA S VAGIN TALITA (RRNA ), URINE neisseria gonorrhoeae, PCR Negati ve negati ve Not Available [facility] (Lab) [address], [place], [address], 10/11/2024 14:24:20 10/11/19 25 10/10/2024 CT/GC AND TRICH OMONA S VAGIN TALITA (RRNA ), URINE trichomonas vaginalis ribosomal RNA (rrna) Negati ve negati ve Not Available [facility] (Lab) [address], [place], [address], 10/11/2024 14:24:20 11/10/19 25 11/09/2024 CBC W/DIF F WBC 8.8 10'3/ uL 3.5-10 .5 Not Available [facility] (Lab) [address], [place], [address], 11/12/2024 23:18:19 11/10/19 25 11/09/2024 CBC W/DIF F RBC 4.40 10'6/ uL (based on docume nted legal sex) 3.80-5 .20 Not Available [facility] (Lab) [address], [place], [address], 11/12/2024 23:18:19 11/10/19 25 11/09/2024 CBC W/DIF F HGB 13.2 g/dL (based on docume nted legal sex) 11.6-1 5.4 Not Available [facility] (Lab) [address], [place], [address], 11/12/2024 23:18:19 11/10/19 25 11/09/2024 CBC W/DIF F HCT 39.9 % (based on docume nted legal sex) 34.0-4 5.0 Not Available [facility] (Lab) [address], [place], [address], 11/12/2024 23:18:19 11/10/19 25 11/09/2024 CBC W/DIF F MCV 90.7 fL 80.0-9 9.0 Not Available [facility] (Lab) [address], [place], [address], 11/12/2024 23:18:19 11/10/19 25 11/09/2024 CBC W/DIF F MCH 30.0 pg 27.0-3 4.0 Not Available [facility] (Lab) [address], [place], [address], 11/12/2024 23:18:19 11/10/19 25 11/09/2024 CBC W/DIF F MCHC 33.1 g/dL 32.0-3 5.5 Not Available [facility] (Lab) [address], [place], [address], 11/12/2024 23:18:19 11/10/19 25 11/09/2024 CBC W/DIF F RDW 13.0 % 11.0-1 5.0 Not Available [facility] (Lab) [address], [place], [address], 11/12/2024 23:18:19 11/10/19 25 11/09/2024 CBC W/DIF F plt 246 10'3/ uL 150-40 0 Not Available [facility] (Lab) [address], [place], [address], 11/12/2024 23:18:19 11/10/19 25 11/09/2024 CBC W/DIF F MPV 11.7 fL 8.8-12 .1 Not Available [facility] (Lab) [address], [place], [address], 11/12/2024 23:18:19 11/10/19 25 11/09/2024 CBC W/DIF F neutrophils 60.9 % 34.0-7 3.0 Not Available [facility] (Lab) [address], [place], [address], 11/12/2024 23:18:19 11/10/19 25 11/09/2024 CBC W/DIF F lymphocytes 27.9 % 15.0-5 0.0 Not Available [facility] (Lab) [address], [place], [address], 11/12/2024 23:18:19 11/10/19 25 11/09/2024 CBC W/DIF F monocytes 7.9 % 1.0-15 .0 Not Available [facility] (Lab) [address], [place], [address], 11/12/2024 23:18:19 11/10/19 25 11/09/2024 CBC W/DIF F eosinophils 2.5 % 0.0-8. 0 Not Available [facility] (Lab) [address], [place], [address], 11/12/2024 23:18:19 11/10/19 25 11/09/2024 CBC W/DIF F basophils 0.5 % 0.0-2. 0 Not Available [facility] (Lab) [address], [place], [address], 11/12/2024 23:18:19 11/10/19 25 11/09/2024 CBC W/DIF [...] separ ately if prese nt. Not Available [facility] (Lab) [address], [place], [address], 11/12/2024 23:18:19 11/10/19 25 11/09/2024 CBC W/DIF F absolute neutrophils 5.4 10'3/ uL 1.5-8. 0 Not Available [facility] (Lab) [address], [place], [address], 11/12/2024 23:18:19 11/10/19 25 11/09/2024 CBC W/DIF F absolute lymphocytes 2.5 10'3/ uL 1.0-4. 0 Not Available [facility] (Lab) [address], [place], [address], 11/12/2024 23:18:19 11/10/19 25 11/09/2024 CBC W/DIF F absolute monocytes 0.7 10'3/ uL 0.2-1. 0 Not Available [facility] (Lab) [address], [place], [address], 11/12/2024 23:18:19 11/10/19 25 11/09/2024 CBC W/DIF F absolute eosinophils 0.2 10'3/ uL 0.0-0. 6 Not Available [facility] (Lab) [address], [place], [address], 11/12/2024 23:18:19 11/10/19 25 11/09/2024 CBC W/DIF F absolute basophils 0.0 10'3/ uL 0.0-0. 3 Not Available [facility] (Lab) [address], [place], [address], 11/12/2024 23:18:19 11/10/19 25 11/09/2024 CBC W/DIF F absolute immature granulocytes 0.0 10'3/ uL 0.00-0 .10 Refer ence range s for nonbi nary/ inter sex or unspe cifie d gende r patie nts have not been estab lishe linda Pleas e refer to the follo wing table for range s estab lishe d for cisge nder patie nts and evalu ate in the clini beena farrukh xt of the indiv idual patie nt: https ://la ronnell book. nm.or g/gen derx Not Available [facility] (Lab) [address], [place], [address], 11/12/2024 23:18:19 11/10/1911/09/2024 HEPAT ITIS C ANTIB VILMA SCREE N, REFLE X TO CONFI RMATI ON hepatitis C antibody Non-re active non-re active Antib odies to HCV Not Detec liset, does not exclu de the possi bilit y of expos ure to HCV. Not Available [facility] (Lab) [address], [place], [address], 11/12/2024 23:18:19 11/10/1911/09/2024 HIV 1/2 ANTIG EN/AN TIBOD Y, REFLE X CONFI RMATI ON HIV antigen/anti body Nonrea ctive nonrea ctive HIV-1 antig en and HIV-1 /HIV- 2 antib odies were not detec liset. No labor atory evide nce of HIV infec tion. Not Available [facility] (Lab) [address], [place], [address], 11/12/2024 23:18:19 11/10/1911/09/2024 HEPAT ITIS B SURFA CE ANTIG EN hepatitis B surface antigen Non-re active non-re active This assay was perfo rmed using [employer] ratio n reage nts and test kits. Value s obtai sheree with other assay metho ds or kits canno t be used inter trevino eably . Not Available [facility] (Lab) [address], [place], [address], 11/12/2024 23:18:20 11/10/19 25 11/09/2024 RUBEL LA IGG ANTIB VILMA, QUANT rubella antibodies, IgG Reacti ve reacti ve Not Available [facility] (Lab) [address], [place], [address], 11/12/2024 23:18:20 11/10/19 25 11/09/2024 RUBEL LA IGG ANTIB VILMA, QUANT rubella antibodies, IgG quant 33.6 IU/mL >=10 Non-r eacti ve (Non- Immun e) <10 IU/mL React roby (Immu ne) > or = 10 IU/mL Not Available [facility] (Lab) [address], [place], [address], 11/12/2024 23:18:20 11/10/19 25 11/09/2024 TYPE/ RH/SC REEN ABO/Rh type A POS Not Available [facility] (Lab) [address], [place], [address], 11/12/2024 23:18:20 11/10/19 25 11/09/2024 TYPE/ RH/SC REEN antibody screen NEG Not Available [facility] (Lab) [address], [place], [address], 11/12/2024 23:18:20 11/10/19 25 11/09/2024 TYPE/ RH/SC REEN exp date 2024 23:59 Not Available [facility] (Lab) [address], [place], [address], 11/12/2024 23:18:20 11/10/19 25 11/09/2024 RPR SCREE N, REFLE X TITER /CONF IRMAT ION RPR qualitative Nonrea ctive nonrea ctive Not Available [facility] (Lab) [address], [place], [address], 11/12/2024 23:18:21 11/10/19 25 11/09/2024 HEMOG LOBIN A1C hemoglobin A1C 5.0 % 4.0-5. 6 The Ameri can [employer] [facility] [employer] iatio n recom mends that a prima ry goal of thera py shoul d be a HBA1C of < 7% and that physi cians shiv zimmerman reeva luate the treat ment regim en in patie nts with HBA1C value s consi stent ly > 8%. <5.7% Salome l 5.7 - 6.4% Incre ased risk for diabe smitha >=6.5 % Diagn ostic of diabe smitha <7.0% Goal of thera py >8.0% Actio n sugge sted Not Available [facility] (Lab) [address], [place], [address], 11/12/2024 23:18:21 11/10/19 25 11/09/2024 CULTU RE: URINE result report SEE RESULT S BELOW abnormal Test: Cultu re: Urine Speci men Sourc e: Urine - Clean Catch Speci men Type: Urine Speci men Date: 2024 1740 Resul t Date: 025 2214 Resul t Statu s: Final resul t Abnor mal: Yes Stefan gonzalez Lab: [facility] [address] [facility] [address] Tel: CULTU RE ----- ----- ----- --- [...] <=0.5 ug/mL Susce ptibl e Not Available [facility] (Lab) [address], [place], [address], 11/12/2024 23:18:21 11/11/19 25 11/10/2024 drug scree n, urine Amphetamines : negati ve Not Available [address], [place], [address], 11/10/2024 15:41:40 11/11/19 25 11/10/2024 drug scree n, urine Cannabinoids : negati ve Not Available [address], [place], [address], 11/10/2024 15:41:40 11/11/19 25 11/10/2024 drug scree n, urine Cocaine: negati ve Not Available [address], [place], [address], 11/10/2024 15:41:40 11/11/19 25 11/10/2024 drug scree n, urine Opiates: negati ve Not Available [address], [place], [address], 11/10/2024 15:41:40 11/11/19 25 11/10/2024 drug scree n, urine Phenocyclidi ne: negati ve Not Available [address], [place], [address], 11/10/2024 15:41:40 11/11/19 25 11/10/2024 drug scree n, urine Barbiturates : negati ve Not Available [address], [place], [address], 11/10/2024 15:41:40 11/11/19 25 11/10/2024 drug scree n, urine Benzodiazepi trent: negati ve Not Available [address], [place], [address], 11/10/2024 15:41:40 11/11/19 25 11/10/2024 drug scree n, urine Ethanol: negati ve Not Available [address], [place], [address], 11/10/2024 15:41:40 11/11/19 25 11/10/2024 drug scree n, urine Hallucinogen s: negati ve Not Available [address], [place], [address], 11/10/2024 15:41:40 11/11/19 25 11/10/2024 drug scree n, urine Inhalants: negati ve Not Available [address], [place], [address], 11/10/2024 15:41:40 11/11/19 25 11/10/2024 drug scree n, urine Anabolic Steroids: negati ve Not Available [address], [place], [address], 11/10/2024 15:41:40 11/11/19 25 11/10/2024 drug scree n, urine Other: negati ve Not Available [address], [place], [address], 11/10/2024 15:41:40 01/31/20 25 01/30/2025 CMP/C BC/UR IC ACID uric acid 3.7 mg/dL 2.3-6. 6 Not Available [facility] (Lab) [address], [place], [address], 01/31/2025 05:01:03 01/31/20 25 01/30/2025 CMP/C BC/UR IC ACID sodium 139 mmol/ L 133-14 6 Not Available [facility] (Lab) [address], [place], [address], 01/31/2025 05:01:03 01/31/20 25 01/30/2025 CMP/C BC/UR IC ACID potassium 3.7 mmol/ L 3.5-5. 1 Not Available [facility] (Lab) [address], [place], [address], 01/31/2025 05:01:03 01/31/20 25 01/30/2025 CMP/C BC/UR IC ACID chloride 105 mmol/ L 98-107 Not Available [facility] (Lab) [address] [place], [address], 01/31/2025 05:01:03 01/31/20 25 01/30/2025 CMP/C BC/UR IC ACID carbon dioxide 24 mmol/ L 21-31 Not Available [facility] (Lab) [address] [place], [address], 01/31/2025 05:01:03 01/31/20 25 01/30/2025 CMP/C BC/UR IC ACID anion gap 10 mmol/ L 4-13 Not Available [facility] (Lab) [address] [place], [address], 01/31/2025 05:01:03 01/31/20 25 01/30/2025 CMP/C BC/UR IC ACID blood urea nitrogen 5 mg/dL 7-25 low Not Available [facility] (Lab) [address], [place], [address], 01/31/2025 05:01:03 01/31/20 25 01/30/2025 CMP/C BC/UR IC ACID creatinine 0.48 mg/dL 0.60-1 .30 low Not Available [facility] (Lab) [address], [place], [address], 01/31/2025 05:01:03 01/31/20 25 01/30/2025 CMP/C BC/UR IC ACID egfrcr (CKD-epi 2020) >90 mL/mi n/1.7 3_m2 >=60 Not Available [facility] (Lab) [address], [place], [address], 01/31/2025 05:01:03 01/31/20 25 01/30/2025 CMP/C BC/UR IC ACID calcium 9.2 mg/dL 8.3-10 .5 Not Available [facility] (Lab) [address], [place], [address], 01/31/2025 05:01:03 01/31/20 25 01/30/2025 CMP/C BC/UR IC ACID glucose 97 mg/dL 70-100 Not Available [facility] (Lab) [address], [place], [address], 01/31/2025 05:01:03 01/31/20 25 01/30/2025 CMP/C BC/UR IC ACID protein, total 6.3 g/dL 6.4-8. 3 low Not Available [facility] (Lab) [address], [place], [address], 01/31/2025 05:01:03 01/31/20 25 01/30/2025 CMP/C BC/UR IC ACID albumin 3.6 g/dL 3.5-5. 0 Not Available [facility] (Lab) [address], [place], [address], 01/31/2025 05:01:03 01/31/20 25 01/30/2025 CMP/C BC/UR IC ACID ALT 10 units /L 9-43 Not Available [facility] (Lab) [address] [place], [address], 01/31/2025 05:01:03 01/31/20 25 01/30/2025 CMP/C BC/UR IC ACID alkaline phosphatase 73 units /L 34-104 Not Available [facility] (Lab) [address] [place], [address], 01/31/2025 05:01:03 01/31/20 25 01/30/2025 CMP/C BC/UR IC ACID AST 10 units /L 13-39 low Not Available [facility] (Lab) [address], [place], [address], 01/31/2025 05:01:03 01/31/20 25 01/30/2025 CMP/C BC/UR IC ACID bilirubin, total 0.2 mg/dL 0.2-1. 2 Not Available [facility] (Lab) [address] [place], [address], 01/31/2025 05:01:03 01/31/20 25 01/30/2025 CMP/C BC/UR IC ACID WBC 8.3 10'3/ uL 3.5-10 .5 Not Available [facility] (Lab) [address] [place], [address], 01/31/2025 05:01:03 01/31/20 25 01/30/2025 CMP/C BC/UR IC ACID RBC 4.01 10'6/ uL (based on docume nted legal sex) 3.80-5 .20 Not Available [facility] (Lab) [address] [place], [address], 01/31/2025 05:01:03 01/31/20 25 01/30/2025 CMP/C BC/UR IC ACID HGB 11.8 g/dL (based on docume nted legal sex) 11.6-1 5.4 Not Available [facility] (Lab) [address], [place], [address], 01/31/2025 05:01:03 01/31/20 25 01/30/2025 CMP/C BC/UR IC ACID HCT 36.0 % (based on docume nted legal sex) 34.0-4 5.0 Not Available [facility] (Lab) [address], [place], [address], 01/31/2025 05:01:03 01/31/20 25 01/30/2025 CMP/C BC/UR IC ACID MCV 89.8 fL 80.0-9 9.0 Not Available [facility] (Lab) [address], [place], [address], 01/31/2025 05:01:03 01/31/20 25 01/30/2025 CMP/C BC/UR IC ACID MCH 29.4 pg 27.0-3 4.0 Not Available [facility] (Lab) [address], [place], [address], 01/31/2025 05:01:03 01/31/20 25 01/30/2025 CMP/C BC/UR IC ACID MCHC 32.8 g/dL 32.0-3 5.5 Not Available [facility] (Lab) [address] [place], [address], 01/31/2025 05:01:03 01/31/20 25 01/30/2025 CMP/C BC/UR IC ACID RDW 13.5 % 11.0-1 5.0 Not Available [facility] (Lab) [address] [place], [address], 01/31/2025 05:01:03 01/31/20 25 01/30/2025 CMP/C BC/UR IC ACID plt 211 10'3/ uL 150-40 0 Not Available [facility] (Lab) [address], [place], [address], 01/31/2025 05:01:03 01/31/20 25 01/30/2025 CMP/C BC/UR IC ACID MPV 11.9 fL 8.8-12 .1 Not Available [facility] (Lab) [address], [place], [address], 01/31/2025 05:01:03 01/31/20 25 01/30/2025 CMP/C BC/UR IC ACID NRBC's 0.0 % 0.0 Not Available [facility] (Lab) [address], [place], [address], 01/31/2025 05:01:03 01/31/20 25 01/30/2025 CMP/C BC/UR IC ACID absolute NRBCs 0.0 10'3/ uL no refere nce range establ ished Not Available [facility] (Lab) [address], [place], [address], 01/31/2025 05:01:03 01/31/20 25 01/30/2025 CMP/C BC/UR IC ACID neutrophils 72.0 % 34.0-7 3.0 Not Available [facility] (Lab) [address] [place], [address], 01/31/2025 05:01:03 01/31/20 25 01/30/2025 CMP/C BC/UR IC ACID lymphocytes 18.5 % 15.0-5 0.0 Not Available [facility] (Lab) [address], [place], [address], 01/31/2025 05:01:03 01/31/20 25 01/30/2025 CMP/C BC/UR IC ACID monocytes 6.9 % 1.0-15 .0 Not Available [facility] (Lab) [address] [place], [address], 01/31/2025 05:01:03 01/31/20 25 01/30/2025 CMP/C BC/UR IC ACID eosinophils 1.3 % 0.0-8. 0 Not Available [facility] (Lab) [address], [place], [address], 01/31/2025 05:01:03 01/31/20 25 01/30/2025 CMP/C BC/UR IC ACID basophils 0.5 % 0.0-2. 0 Not Available [facility] (Lab) [address], [place], [address], 01/31/2025 05:01:03 01/31/20 25 01/30/2025 CMP/C BC/UR [...] separ ately if prese nt. Not Available [facility] (Lab) [address], [place], [address], 01/31/2025 05:01:03 01/31/20 25 01/30/2025 CMP/C BC/UR IC ACID absolute neutrophils 6.0 10'3/ uL 1.5-8. 0 Not Available [facility] (Lab) [address], [place], [address], 01/31/2025 05:01:03 01/31/20 25 01/30/2025 CMP/C BC/UR IC ACID absolute lymphocytes 1.5 10'3/ uL 1.0-4. 0 Not Available [facility] (Lab) [address], [place], [address], 01/31/2025 05:01:03 01/31/20 25 01/30/2025 CMP/C BC/UR IC ACID absolute monocytes 0.6 10'3/ uL 0.2-1. 0 Not Available [facility] (Lab) [address], [place], [address], 01/31/2025 05:01:03 01/31/20 25 01/30/2025 CMP/C BC/UR IC ACID absolute eosinophils 0.1 10'3/ uL 0.0-0. 6 Not Available [facility] (Lab) [address], [place], [address], 01/31/2025 05:01:03 01/31/20 25 01/30/2025 CMP/C BC/UR IC ACID absolute basophils 0.0 10'3/ uL 0.0-0. 3 Not Available [facility] (Lab) [address], [place], [address], 01/31/2025 05:01:03 01/31/20 25 01/30/2025 CMP/C BC/UR IC ACID absolute immature granulocytes 0.1 10'3/ uL 0.00-0 .10 Refer ence range s for nonbi nary/ inter sex or unspe cifie d gende r patie nts have not been estab lishe d. Pleas e refer [facility] table for range s estab lishe d for cisge nder patie nts and evalu ate in the clini beena farrukh xt of the indiv idual patie nt: https ://ashley reynaga book. nm.or g/gen derx Not Available [facility] (Lab) [address], [place], [address], 01/31/2025 05:01:03 01/31/20 25 01/30/2025 PROTE IN/CR EATIN INE RATIO , URINE creatinine, urine 11.2 mg/dL R-No refer ence range estab lishe d for this assay Not Available [facility] (Lab) [address], [place], [address], 01/31/2025 05:01:04 01/31/20 25 01/30/2025 PROTE IN/CR EATIN INE RATIO , URINE protein, urine <4 mg/dL R-No refer ence range estab lishe d for this assay Not Available [facility] (Lab) [address], [place], [address], 01/31/2025 05:01:04 01/31/20 25 01/30/2025 PROTE IN/CR [...] fican t prote inuri a. Not Available [facility] (Lab) [address], [place], [address], 01/31/2025 05:01:04 02/28/20 25 02/27/2025 GTT - GESTA MARVEL L SCREAngie N, ACOG OB glucose, 1 hour screen 162 mg/dL 70-135 high Not Available [facility] (Lab) [address], [place], [address], 02/28/2025 11:58:20 02/28/20 25 02/27/2025 HEMAT OCRIT (HCT) HCT 35.3 % (based on docume nted legal sex) 34.0-4 5.0 Not Available [facility] (Lab) [address], [place], [address], 02/28/2025 11:58:20 02/28/20 25 02/27/2025 HEMOG LOBIN (HGB) HGB 11.5 g/dL (based on docume nted legal sex) 11.6-1 5.4 low Not Available [facility] (Lab) [address], [place], [address], 02/28/2025 11:58:21 02/28/20 25 02/27/2025 HIV 1/2 ANTIG EN/AN TIBOD Y, REFLE X CONFI RMATI ON HIV antigen/anti body Nonrea ctive nonrea ctive HIV-1 antig en and HIV-1 /HIV- 2 antib odies were not detec liset. No labor atory evide nce of HIV infec tion. Not Available [facility] (Lab) [address], [place], [address], 02/28/2025 11:58:21 02/28/20 25 02/27/2025 RPR SCREE N, REFLE X TITER /CONF IRMAT ION RPR qualitative Nonrea ctive nonrea ctive Not Available [facility] (Lab) [address], [place], [address], 02/28/2025 11:58:22 03/06/2003/06/2025 GTT - GESTA MARVEL L, 3 HOUR, ACOG glucose, fasting acog 75 mg/dL 70-94 Not Available [facility] (Lab) [address], [place], [address], 03/09/2025 14:10:52 03/06/20 25 03/06/2025 GTT - GESTA MARVEL L, 3 HOUR, ACOG glucose, 1 hour acog 166 mg/dL 70-[address] [facility] (Lab) [address] [place], [address], 03/09/2025 14:10:52 03/06/20 25 03/06/2025 GTT - GESTA MARVEL L, 3 HOUR, ACOG glucose, 2 hour acog 153 mg/dL 70-[address] [facility] (Lab) [address] [place], [address], 03/09/2025 14:10:52 03/06/20 25 03/06/2025 GTT - GESTA MARVEL L, 3 HOUR, ACOG glucose, 3 hour acog 129 mg/dL 70-[address] [facility] (Lab) [address] [place], [address], 03/09/2025 14:10:52 04/26/20 25 04/26/2025 CULTU RE: [...] t Abnor mal: No Resul ting Lab: [facility] [address] [facility] [address] Tel: CULTU RE ----- ----- ----- --- No Group B strep isola liset at 2 days (palmer ctive broth enhan cemen t) Not Available [facility] (Lab) [address], [place], [address], 04/29/2025 15:53:56 10/11/19 25 10/10/2024 US, obste tric, 1st trime ster No observ ation record ed. [email or web address], [place], [address], 10/10/2024 11:04:01 11/10/19 25 11/09/2024 US, obste tric, nucha l trans lucen cy No observ ation record ed. [facility] [address], [place], [address], 11/09/2024 18:22:59 11/10/19 25 11/09/2024 US, obste tric, nucha l trans lucen cy No observ ation record ed. [email or web address] [address], [place], [address], 11/09/2024 22:19:50 01/03/20 25 01/02/2025 US, obste tric, 2nd or 3rd trime ster No observ ation record ed. [email or web address] [facility] [address], [place], [address], 01/02/2025 18:17:38 01/03/20 25 01/02/2025 US, obste tric, follo w-up No observ ation record ed. [email or web address] [address], [place], [address], 01/09/2025 17:57:54 01/03/20 25 01/02/2025 US, obste tric, 2nd or 3rd trime ster No observ ation record ed. [email or web address] [address], [place], [address], 01/03/2025 18:02:23 01/03/20 25 01/02/2025 US, obste tric, 2nd or 3rd trime ster No observ ation record ed. [email or web address] [address], [place], [address], 01/03/2025 18:02:23 03/18/20 25 03/17/2025 imagi ng/di agnos tic resul t No observ ation record ed. [address] [facility], [place], [address], 03/20/2025 11:13:18 03/20/20 25 03/18/2025 US, salin e infus ed uteru s No observ ation record ed. [id number] [facility], [place], [address], 03/20/2025 16:12:25 03/22/20 25 03/22/2025 non-s tress test No observ ation record ed. [email or web address] [address] [address], [place], [address], 03/22/2025 11:55:23 03/22/20 25 03/20/2025 non-s tress test No observ ation record ed. [email or web address] Not Available 03/22 23:40:54 03/27/20 25 03/27/2025 US, obste tric, follo w-up No observ ation record ed. [email or web address] [address], [place], [address], 03/27/2025 13:07:17 03/27/20 25 03/27/2025 US, obste tric, bioph ysica l profi le + non-s tress test No observ ation record ed. [email or web address] [address], [place], [address], 03/27/2025 13:07:42 03/27/20 25 03/27/2025 US, obste tric, follo w-up No observ ation record ed. [email or web address] [address], [place], [address], 03/27/2025 10:39:08 03/27/20 25 03/27/2025 non-s tress test No observ ation record ed. [email or web address] [facility], [place], [address], 03/27/2025 11:15:38 03/27/20 non-s tress test No observ ation record ed. [email or web address] [facility] [address], [place], [address], 03/27/2025 11:06:00 04/03/20 25 04/03/2025 US, obste tric, bioph ysica l profi le + non-s tress test No observ ation record ed. [email or web address] [address] [address], [place], [address], 04/03/2025 18:27:14 04/03/20 25 04/03/2025 US, obste tric, bioph ysica l profi le + non-s tress test No observ ation record ed. [email or web address] [address], [place], [address], 04/04/2025 18:59:15 04/03/20 25 04/03/2025 non-s tress test No observ ation record ed. OLIVIA [facility] [address], [place], [address], 04/04/2025 10:33:24 04/03/20 non-s tress test No observ ation record ed. [email or web address] [address] [address], [place], [address], 04/03/2025 11:35:14 04/10/20 25 04/11/2025 US, obste tric, bioph ysica l profi le + non-s tress test No observ ation record ed. [email or web address] [address] [address], [place], [address], 04/11/2025 12:31:31 04/10/20 25 04/10/2025 US, obste tric, bioph ysica l profi le + non-s tress test No observ ation record ed. [email or web address] [address], [place], [address], 04/10/2025 14:16:39 04/10/20 25 04/10/2025 non-s tress test No observ ation record ed. [email or web address] [address] [address], [place], [address], 04/10/2025 14:16:00 04/10/20 25 non-s tress test No observ ation record ed. [email or web address] [address] [address], [place], [address], 04/10/2025 14:16:00 04/18/2004/18/2025 US, obste tric, bioph ysica l profi le + non-s tress test No observ ation record ed. [email or web address] [address], [place], [address], 04/18/2025 18:03:02 04/18/2004/18/2025 US, obste tric, bioph ysica l profi le + non-s tress test No observ ation record ed. [email or web address] [address], [place], [address], 04/21/2025 01:47:31 04/18/2004/18/2025 non-s tress test No observ ation record ed. [address], [place], [address], 04/19/2025 16:02:09 04/18/20 non-s tress test No observ ation record ed. [email or web address] [address], [place], [address], 04/18/2025 17:19:05 04/25/2004/25/2025 US, obste tric, follo w-up No observ ation record ed. [email or web address] [address], [place], [address], 04/25/2025 18:00:59 04/25/2004/25/2025 US, obste tric, bioph ysica l profi le + non-s tress test No observ ation record ed. [email or web address] [address], [place], [address], 04/25/2025 18:00:41 04/25/2004/25/2025 US, obste tric, follo w-up No observ ation record ed. [email or web address] [address], [place], [address], 04/25/2025 19:59:27 04/25/2004/26/2025 non-s tress test No observ ation record ed. [email or web address] [address], [place], [address], 04/26/2025 12:42:17 04/25/20 non-s tress test No observ ation record ed. [address], [place], [address], 04/25/2025 18:05:07 05/01/2005/01/2025 US, obste tric, bioph ysica l profi le + non-s tress test No observ ation record ed. [email or web address] [address], [place], [address], 05/01/2025 11:27:23 05/01/2005/01/2025 US, obste tric, bioph ysica l profi le + non-s tress test No observ ation record ed. [email or web address] [address], [place], [address], 05/01/2025 21:15:25 05/02/2005/02/2025 non-s tress test No observ ation record ed. OLIVIA [facility] [address], [place], [address], 05/02/2025 17:00:00 05/02/2005/01/2025 non-s tress test No observ ation record ed. [email or web address] Not Available 2024 15:39:46 05/02/20 non-s tress test No observ ation record ed. [email or web address] Not Available 2024 15:39:46 05/08/20 25 05/08/2025 US, obste tric, bioph ysica l profi le + non-s tress test No observ ation record ed. [facility] [address], [place], [address], 05/08/2025 13:28:33 05/08/2005/08/2025 US, obste tric, bioph ysica l profi le + non-s tress test No observ ation record ed. [email or web address] [address], [place], [address], 05/08/2025 10:25:28 05/08/2005/08/2025 non-s tress test No observ ation record ed. [address], [place], [address], 05/08/2025 11:20:04 05/08/20 non-s tress test No observ ation record ed. [place] [address], [place], [address], 05/08/2025 11:21:52 Result Notes None recorded. Problems Name Problem SNOMED Code Status Onset Date Resolution Date Notes Provider Name and Address Organization Details Recorded Time 96997276 Active [address] [facility] 10:29:46 Chronic hypertens ion complicat ing AND/OR reason for care during 50380600 Active 2024 - elevated BP in office at 24 weeks, asymptomat ic - on chart review, multiple elevated BP outside of - baseline labs ordered - plan for 32 week testing JACK RHODES MD [address], [place], [address], [facility] 11:42:33 Problem Notes None recorded. Procedures Surgical History Date Name Laterality Status Provider Name and Address Organization Details Recorded Time SIS completed JACK RHODES MD [address], [place], [address], [place] [facility] 08/15/2024 22:58:22 4 Date of Last Pap Smear completed Rosita Ospina [facility] 07/27/2024 14:07:04 3 Dilation [facility]tt[facility] 09:48:11 Imaging Results None recorded. [...] Address Organization Details Last Updated DateTime 5 65680.3 977 g 38.4 kg/m2 157.48 cm 157.48 cm 38.4 kg/m2 99981.4 g 134/90 mm[Hg] 134/90 mm[Hg] Norma Durondarrel [facility] 5 11:19:04 Social History Question Answer Notes LastModified by Organizat ion Details LastModified Time How Many Years Have You Consumed Alcohol? 7 [email or web address] Information not available 04/27/2024 Are You Blind Or Do You Have Difficulty Seeing? No [email or web address] Information not available 04/27/2024 What Is Your Level Of Caffeine Consumption? Heavy Information not available 04/27/2024 How Much Tobacco Do You Chew? None [email or web address] Information not available 04/27/2024 In The 14 Days Before Symptom Onset, Have You Had Close Contact With A Laboratory-confirme d COVID-19 While That Case Was Ill? No Information n ot available 04/27/2024 In The 14 Days Before Symptom Onset, Have You Had Close Contact With A Person Who Is Under Investigation For COVID-19 While That Person Was Ill? No [email or web address] Information not available 04/27/2024 Have You Been To An Area Known To Be High Risk For COVID-19? No [email or web address] Information not available 04/27/2024 Are You Deaf Or Do You Have Serious Difficulty Hearing? No [email or web address] Information not available 04/27/2024 What Type Of Diet Are You Following? REGULAR [email or web address] Information n ot available 04/27/2024 What Is The Highest Grade Or Level Of School You Have Completed Or The Highest Degree You Have Received? [id number] Information not available 04/27/2024 Are There Any Guns Present In Your Home? Yes [email or web address] Information not available 04/27/2024 Do You Use Protection During Sex? No [email or web address] Information not available 04/27/2024 Do You Use Your Seat Belt Or Car Seat Routinely? Yes Information not available 04/27/2024 Are You Sexually Active? Yes Information not available 07/27/2024 Do You Have Smoke And Carbon Monoxide Detectors In Your Home? Yes [email or web address] Information not available 04/27/2024 How Much Tobacco Do You Smoke? No [email or web address] Information not available 04/27/2024 Do You Use Sunscreen Routinely? Yes [email or web address] Information not available 04/27/2024 Have You Used IV Drugs? No [email or web address] Information not available 04/27/2024 Do You Have Difficulty Walking Or Climbing Stairs? No [email or web address] Information not available 07/27/2024 Sex: Unknown Functional Status Question Answer Note LastModified by Organizat ion Details LastModified Time Do you use any illicit or recreational drugs? No [email or web address] Information not available 04/27/2024 What is your level of alcohol consumption? Moderate Information not available 04/27/2024 Are you currently employed? Yes [email or web address] Information not available 07/27/2024 Are you able to walk independently without assistance or assistive devices? YESWOREST [email or web address] Information not available 04/27/2024 Are you able to care for yourself independently? 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 No [email or web address] Information not available 07/27/2024 What is your exercise level? None [email or web address] Information not available 04/27/2024 Mental Status Question Answer Note LastModified by Organization D etails LastModified Time Do you feel stressed (tense, restless, nervous, or anxious, or unable to sleep at night)? [id number] [email or web address] Information not available 04/27/2024 Family History Relationship Description Onset Age of this Age Resolved Age Notes LastModified by Organization Details LastModified Time Mother Disorder of thyroid gland [email or web address] Not available 2023 09:48:11 Maternal Aunt Disorder of thyroid gland Not available 2023 09:48:11 Brother Hypercholest erolemia [email or web address] Not available 2023 09:48:11 Paternal Grandfather Heart disease [email or web address] Not available 2023 09:48:11 Medical History Condition Response Allergies (Food, seasonal, environmental ) N Other N Drug/Latex Allergies/Reactions N Breast Cancer N Blood Transfusion N Dermatologic Disorders N [...] ICD10 Code Diagnosis IMO Codes Diagnosis Note [id number] JACK RHODES MD [facility] [address] [address] 04/10/2025 09:22:39 04/10/2025 09:54:16 Chronic hypertension complicating AND/OR reason for care during 22303007 O10.913 Z3A.34 31178453 - elevated BP in office at 24 weeks, asymptomat ic- on chart review, multiple elevated BP outside of - baseline labs wnl- continue weekly testing [id number] MD Lenore TUTTLE [address],[place] [address] 04/10/2025 09:22:56 04/10/2025 10:42:15 Maternal obesity complicating , childbirth and the puerperium, antepartum 9168836356 07 O99.210 5359387121 [id number] JACK RHODES MD [facility] [address],[place] [address] 04/10/2025 09:23:13 04/10/2025 11:14:34 Chronic hypertension complicating AND/OR reason for care during 88873167 O10.919 49508928 - elevated BP in office at 24 weeks, asymptomat ic- on chart review, multiple elevated BP outside of - baseline labs wnl- continue weekly testing Gestation period, 34 weeks 18651303 Z3A.34 8168578 [id number] JACK RHODES MD [facility] [address],[place] [address] 04/18/2025 16:15:32 04/18/2025 16:57:27 Essential hypertension complicating AND/OR reason for care during 25486519 O10.013 Z3A.35 0079188 [id number] JACK RHODES MD [facility] [address],[place] [address] 04/18/2025 16:15:58 04/18/2025 17:20:30 Maternal obesity complicating , childbirth and the puerperium, antepartum 0633286803 07 O99.210 E66.09 2351365273 [id number] JACK RHODES MD [facility] [address],[place] [address] 04/18/2025 16:16:23 04/18/2025 17:59:57 Chronic hypertension complicating AND/OR reason for care during 35484259 O10.919 18916067 - elevated BP in office at 24 weeks, asymptomat ic- on chart review, multiple elevated BP outside of - baseline labs wnl- continue weekly testing Gestation period, 35 weeks 29148521 Z3A.35 5642848 [id number] JACK RHODES MD [facility] [address],[place] [address] 04/25/2025 16:17:33 04/25/2025 16:57:53 Essential hypertension complicating AND/OR reason for care during 38001075 O10.013 Z3A.36 5533942 [id number] JACK RHODES MD [facility] [address],[place] [address] 04/25/2025 16:17:57 04/25/2025 18:03:35 Chronic hypertension complicating AND/OR reason for care during 93535670 O10.919 34640285 - elevated BP in office at 24 weeks, asymptomat ic- on chart review, multiple elevated BP outside of - baseline labs wnl- continue weekly testing [id number] JACK RHODES MD [facility] [address],[place] [address] 04/25/2025 16:18:16 04/26/2025 08:25:30 Chronic hypertension complicating AND/OR reason for care during 01912767 O10.919 10152874 - elevated BP in office at 24 weeks, asymptomat ic- on chart review, multiple elevated BP outside of - baseline labs wnl- continue weekly testing Gestation period, 36 weeks 06878782 Z3A.36 3582725 - continue PNV [id number] JACK RHODES MD [facility] [address],[place] [address] 05/01/2025 09:56:29 05/01/2025 10:24:07 Essential hypertension complicating AND/OR reason for care during 60224411 O10.013 Z3A.37 4789580 [id number] JACK RHODES MD [facility] [address],[place] [address] 05/01/2025 09:57:00 05/02/2025 12:08:45 Chronic hypertension complicating AND/OR reason for care during 77879392 O10.913 67330727 - elevated BP in office at 24 weeks, asymptomat ic- on chart review, multiple elevated BP outside of - baseline labs wnl- continue weekly testing [id number] JACK RHODES MD [facility] [address],[place] [address] 05/01/2025 09:57:27 05/01/2025 16:16:48 Chronic hypertension complicating AND/OR reason for care during 95185660 O10.919 64189465 - elevated BP in office at 24 weeks, asymptomat ic- on chart review, multiple elevated BP outside of - baseline labs wnl- continue weekly testing Gestation period, 37 weeks 74565251 Z3A.37 4747639 - continue pNV [id number] JACK RHODES MD [facility] [address],[place] [address] 05/08/2025 10:00:06 05/08/2025 10:25:13 Maternal hypertension 379753782 O16.3 O10.913 Z3A.38 7984283 [id number] JACK RHODES MD [facility] [address],[place] [address] 05/08/2025 10:00:43 05/08/2025 11:33:40 Chronic hypertension complicating AND/OR reason for care during 37386080 O10.919 56821939 [id number] JACK RHODES MD [facility] [address],[place] [address] 05/08/2025 10:00:57 05/08/2025 11:42:56 Chronic hypertension complicating AND/OR reason for care during 37351317 O10.919 85414982 - induction today at 38 weeks Gestation period, 38 weeks 85084950 Z3A.38 1423487 - continue PNV Health Concerns Section Related Observation LastModified by Organization Detai ls LastModified Time None Recorded Concern Status LastModified by Organization Details LastModified Time None Recorded Payers Encounter Date Sequence Insurance Name Policy Number Policy Garcia Covered Member ID Garcia Member ID Guarantor Name 05/08/2025 1 [facility] ([facility] [id number] Tito Tamayo [id number] Leelee Tamayo Notes Date Note Type Note Provider Name and Address Organization Details Recorded Time 05/08/2025 text/html Generic HPI TemplateReported by Patient JACK RHODES MD [address], [place], [address], [place] [facility] 05/08/2025 11:41:09 OBGyn Episode Ob Episode Information Episode Created Date Number of Fetuses Patient Bloodtype Patient rh Status Prepregnancy Weight lbs Domestic Partner Domestic Partner Phone Father Name Alliance Manager Status 10/11/19 25 1 A Positive 194 OPEN Fetus Data First Name Last Name Admitted to NICU Weight (g) Sex Living Outcome Pediatric Complications Fetus ID Race Codes Race Delivery Type [id number] Problems Problem Notes arrhythmia noted LD - Referr al faxed to [facility] 03/23 Problem Name Start Date End Date Resolution Snomed Code Not e Chronic hypertension complicating AND/OR reason for care during 01/30/2025 57036275 - elevated BP i n office at [...] Weight in lbs Pre/Post Dialysis Refused Weight 194.162406573926 BP Diastolic BP Location Tested BP Systolic [...] Type Weight in lbs Pre/Post Dialysis Refused 197.069658152010 BP Diastolic BP Location Tested BP Systolic [...] Type Weight in lbs Pre/Post Dialysis Refused 198.560199712822 BP Diastolic BP Location Tested BP Systolic [...] Weight in lbs Pre/Post Dialysis Refused Weight 198.980297221319 BP Diastolic BP Location Tested BP Systolic [...] Weight in lbs Pre/Post Dialysis Refused Weight 202.611989836194 BP Diastolic BP Location Tested BP Systolic [...] Weight in lbs Pre/Post Dialysis Refused Weight 202.937176992564 BP Diastolic BP Location Tested BP Systolic [...] Weight in lbs Pre/Post Dialysis Refused Weight 205.758701809102 BP Diastolic BP Location Tested BP Systolic [...] Type Weight in lbs Pre/Post Dialysis Refused 204.201412403069 BP Diastolic BP Location Tested BP Systolic [...] Weight in lbs Pre/Post Dialysis Refused Weight 203.328617045784 BP Diastolic BP Location Tested BP Systolic BP Type 87 L arm 135 sitting Fetus Heart Rate Present Fetus Movement A Yes Comments Flowsheet Date 03/27/2025 Hopson Score Blood Edema Fundus Height Fundus Units Glucose Ketones Leukocytes Nitrite Labor Signs Protein Cervic Dilation Cervic Effacement Cervic Station Type Weight in lbs Pre/Post Dialysis Refused 203.81058857429 BP Diastolic BP Location Tested BP Systolic [...] Weight in lbs Pre/Post Dialysis Refused Weight 207.112181624718 BP Diastolic BP Location Tested BP Systolic [...] Type Weight in lbs Pre/Post Dialysis Refused 206.979800075830 BP Diastolic BP Location Tested BP Systolic BP Type 85 R arm 128 sitting Fetus Heart Rate Present Fetus Movement Comments Flowsheet Date 04/10/2025 Hopson Score Blood Edema Fundus Height Fundus Units Glucose Ketones Leukocytes Nitrite Labor Signs Protein Cervic Dilation Cervic Effacement Cervic Station Type Weight in lbs Pre/Post Dialysis Refused Weight 206.738525238859 BP Diastolic BP Location Tested BP Systolic [...] Type Weight in lbs Pre/Post Dialysis Refused 206.296100041107 BP Diastolic BP Location Tested BP Systolic [...] Type Weight in lbs Pre/Post Dialysis Refused 209.690613400221 BP Diastolic BP Location Tested BP Systolic BP Type 89 L arm 131 sitting Fetus Heart Rate Present Fetus Movement A Yes Comments Flowsheet Date 04/25/2025 Hopson Score Blood Edema Fundus Height Fundus Units Glucose Ketones Leukocytes Nitrite Labor Signs Protein Cervic Dilation Cervic Effacement Cervic Station Type Weight in lbs Pre/Post Dialysis Refused Weight 209.850196182294 BP Diastolic BP Location Tested BP Systolic [...] Weight in lbs Pre/Post Dialysis Refused Weight 208.470665564797 BP Diastolic BP Location Tested BP Systolic [...] Weight in lbs Pre/Post Dialysis Refused Weight 210.550098344415 BP Diastolic BP Location Tested BP Systolic BP Type 90 L arm 134 sitting Fetus Heart Rate Present Fetus Movement Comments Flowsheet Date 05/08/2025 Hopson Score Blood Edema Fundus Height Fundus Units Glucose Ketones Leukocytes Nitrite Labor Signs Protein Cervic Dilation Cervic Effacement Cervic Station 0cm 50% -3 Type Weight in lbs Pre/Post Dialysis Refused 210.982996103226 BP Diastolic BP Location Tested BP Systolic BP Type 90 L arm 134 sitting Fetus Heart Rate Present A 135 Fetus Movement A Yes Comments Good movement. No cram ping or bleeding. BP elevated over the weekend, went to [place], workup normal aside from proteinuria. Asymptomatic aside from swelling. Discussed moving induction to today due to new proteinuria and elevated BPs. Patient agreeable. SVE closed, discussed cytotec induction. BPP 04/21. Patient to present to [facility] for induction. Menstrual History Last Menstrual Date [...]
--- OUTSIDE RECORDS SUMMARY | 2025-05-08 17:20 | XMS_ITS | Continuity of Care Document ---
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 Surgeries None recorde d. Imaging None recorde d. Medication Orders None recorde d. Patient TargetsNo targets recorded. Patient InstructionsNo instructions recorded. Reason for Referral None Reported. Results Created Date Observation Date Name Description Value Unit Range Abnormal Flag Note LastModifiedBy Organization Detail LastModifiedTime 10/11/1910/10/2024 CT/GC AND TRICH OMONA S VAGIN TALITA (RRNA ), URINE chlamydia trachomatis, PCR Negati ve negati ve Not Available [facility] (Lab) [address], [place], [address], 10/11/2024 14:24:20 10/11/19 25 10/10/2024 CT/GC AND TRICH OMONA S VAGIN TALITA (RRNA ), URINE neisseria gonorrhoeae, PCR Negati ve negati ve Not Available [facility] (Lab) [address] [facility], [place], [address], 10/11/2024 14:24:20 10/11/19 25 10/10/2024 CT/GC AND TRICH OMONA S VAGIN TALITA (RRNA ), URINE trichomonas vaginalis ribosomal RNA (rrna) Negati ve negati ve Not Available [facility] (Lab) [address] [facility], [place], [address], 10/11/2024 14:24:20 11/10/19 25 11/09/2024 CBC W/DIF F WBC 8.8 10'3/ uL 3.5-10 .5 Not Available [facility] (Lab) [address] [facility], [place], [address], 11/12/2024 23:18:19 11/10/19 25 11/09/2024 CBC W/DIF F RBC 4.40 10'6/ uL (based on docume nted legal sex) 3.80-5 .20 Not Available [facility] (Lab) [address] [facility], [place], [address], 11/12/2024 23:18:19 11/10/19 25 11/09/2024 CBC W/DIF F HGB 13.2 g/dL (based on docume nted legal sex) 11.6-1 5.4 Not Available [facility] (Lab) [address] [facility], [place], [address], 11/12/2024 23:18:19 11/10/19 25 11/09/2024 CBC W/DIF F HCT 39.9 % (based on docume nted legal sex) 34.0-4 5.0 Not Available [facility] (Lab) [address] [facility], [place], [address], 11/12/2024 23:18:19 11/10/19 25 11/09/2024 CBC W/DIF F MCV 90.7 fL 80.0-9 9.0 Not Available [facility] (Lab) [address] [facility], [place], [address], 11/12/2024 23:18:19 11/10/19 25 11/09/2024 CBC W/DIF F MCH 30.0 pg 27.0-3 4.0 Not Available [facility] (Lab) [address] [facility], [place], [address], 11/12/2024 23:18:19 11/10/19 25 11/09/2024 CBC W/DIF F MCHC 33.1 g/dL 32.0-3 5.5 Not Available [facility] (Lab) [address] [facility], [place], [address], 11/12/2024 23:18:19 11/10/19 25 11/09/2024 CBC W/DIF F RDW 13.0 % 11.0-1 5.0 Not Available [facility] (Lab) [address] [facility], [place], [address], 11/12/2024 23:18:19 11/10/19 25 11/09/2024 CBC W/DIF F plt 246 10'3/ uL 150-40 0 Not Available [facility] (Lab) [address] [facility], [place], [address], 11/12/2024 23:18:19 11/10/19 25 11/09/2024 CBC W/DIF F MPV 11.7 fL 8.8-12 .1 Not Available [facility] (Lab) [address] [facility], [place], [address], 11/12/2024 23:18:19 11/10/19 25 11/09/2024 CBC W/DIF F neutrophils 60.9 % 34.0-7 3.0 Not Available [facility] (Lab) [address] [facility], [place], [address], 11/12/2024 23:18:19 11/10/19 25 11/09/2024 CBC W/DIF F lymphocytes 27.9 % 15.0-5 0.0 Not Available [facility] (Lab) [address] [facility], [place], [address], 11/12/2024 23:18:19 11/10/19 25 11/09/2024 CBC W/DIF F monocytes 7.9 % 1.0-15 .0 Not Available [facility] (Lab) [address] [facility], [place], [address], 11/12/2024 23:18:19 11/10/19 25 11/09/2024 CBC W/DIF F eosinophils 2.5 % 0.0-8. 0 Not Available [facility] (Lab) [address] [facility], [place], [address], 11/12/2024 23:18:19 11/10/19 25 11/09/2024 CBC W/DIF F basophils 0.5 % 0.0-2. 0 Not Available [facility] (Lab) [address] [facility], [place], [address], 11/12/2024 23:18:19 11/10/19 25 11/09/2024 CBC W/DIF [...] separ ately if prese nt. Not Available [facility] (Lab) [address] [facility], [place], [address], 11/12/2024 23:18:19 11/10/19 25 11/09/2024 CBC W/DIF F absolute neutrophils 5.4 10'3/ uL 1.5-8. 0 Not Available [facility] (Lab) [address] [facility], [place], [address], 11/12/2024 23:18:19 11/10/19 25 11/09/2024 CBC W/DIF F absolute lymphocytes 2.5 10'3/ uL 1.0-4. 0 Not Available [facility] (Lab) [address] [facility], [place], [address], 11/12/2024 23:18:19 11/10/19 25 11/09/2024 CBC W/DIF F absolute monocytes 0.7 10'3/ uL 0.2-1. 0 Not Available [facility] (Lab) [address] [facility], [place], [address], 11/12/2024 23:18:19 11/10/19 25 11/09/2024 CBC W/DIF F absolute eosinophils 0.2 10'3/ uL 0.0-0. 6 Not Available [facility] (Lab) [address] [facility], [place], [address], 11/12/2024 23:18:19 11/10/19 25 11/09/2024 CBC W/DIF F absolute basophils 0.0 10'3/ uL 0.0-0. 3 Not Available [facility] (Lab) [address] [place], [address], 11/12/2024 23:18:19 11/10/19 25 11/09/2024 CBC W/DIF F absolute immature granulocytes 0.0 10'3/ uL 0.00-0 .10 Refer ence range s for nonbi nary/ inter sex or unspe cifie d gende r patie nts have not been estab lishe d. Pleas e refer to the chhayao table for range s estab lishe d for cisge nder patie nts and evalu ate in the clini beena farrukh xt of the indiv idual patie nt: https ://ashley reynaga book. nm.or g/gen derx Not Available [facility] (Lab) [address] [facility], [place], [address], 11/12/2024 23:18:19 11/10/19 25 11/09/2024 HEPAT ITIS C ANTIB VILMA SCREE N, REFLE X TO CONFI RMATI ON hepatitis C antibody Non-re active non-re active Antib odies to HCV Not Detec liset, does not exclu de the possi bilit y of expos ure to HCV. Not Available [facility] (Lab) [address] [facility], [place], [address], 11/12/2024 23:18:19 11/10/19 25 11/09/2024 HIV 1/2 ANTIG EN/AN TIBOD Y, REFLE X CONFI RMATI ON HIV antigen/anti body Nonrea ctive nonrea ctive HIV-1 antig en and HIV-1 /HIV- 2 antib odies were not detec liset. No labor atory evide nce of HIV infec tion. Not Available [facility] (Lab) [address] [facility], [place], [address], 11/12/2024 23:18:19 11/10/19 25 11/09/2024 HEPAT ITIS B SURFA CE ANTIG EN hepatitis B surface antigen Non-re active non-re active This assay was perfo rmed using [employer] ratio n reage nts and test kits. Value s obtai sheree with other assay metho ds or kits canno t be used inter trevino eably . Not Available [facility] (Lab) [address] [facility], [place], [address], 11/12/2024 23:18:20 11/10/19 25 11/09/2024 RUBEL LA IGG ANTIB VILMA, QUANT rubella antibodies, IgG Reacti ve reacti ve Not Available [facility] (Lab) [address] [facility], [place], [address], 11/12/2024 23:18:20 11/10/19 25 11/09/2024 RUBEL LA IGG ANTIB VILMA, QUANT rubella antibodies, IgG quant 33.6 IU/mL >=10 Non-r eacti ve (Non- Immun e) <10 IU/mL React roby (Immu ne) > or = 10 IU/mL Not Available [facility] (Lab) [address] [facility], [place], [address], 11/12/2024 23:18:20 11/10/19 25 11/09/2024 TYPE/ RH/SC REEN ABO/Rh type A POS Not Available [facility] (Lab) [address], [place], [address], 11/12/2024 23:18:20 11/10/19 25 11/09/2024 TYPE/ RH/SC REEN antibody screen NEG Not Available [facility] (Lab) [address] [facility], [place], [address], 11/12/2024 23:18:20 11/10/19 25 11/09/2024 TYPE/ RH/SC REEN exp date 2024 23:59 Not Available [facility] (Lab) [address] [facility], [place], [address], 11/12/2024 23:18:20 11/10/19 25 11/09/2024 RPR SCREE N, REFLE X TITER /CONF IRMAT ION RPR qualitative Nonrea ctive nonrea ctive Not Available [facility] (Lab) [address] [facility], [place], [address], 11/12/2024 23:18:21 11/10/19 25 11/09/2024 HEMOG LOBIN A1C hemoglobin A1C 5.0 % 4.0-5. 6 The Ameri can [employer] smitha [employer] iatio n recom mends that a prima ry goal of thera py shiv d be a HBA1C of < 7% and that physi cians buddyul d reeva luate the treat ment regim en in patie nts with HBA1C value s consi stent ly > 8%. <5.7% Salome l 5.7 - 6.4% Incre ased risk for diabe smitha >=6.5 % Diagn ostic of diabe smitha <7.0% Goal of thera py >8.0% Actio n chon turcios Not Available [facility] (Lab) [address] [facility], [place], [address], 11/12/2024 23:18:21 11/10/19 25 11/09/2024 CULTU RE: URINE result report SEE RESULT S BELOW abnormal Test: Cultu re: Urine Speci men Sourc e: Urine - Clean Catch Speci men Type: Urine Speci men Date: 2024 1740 Resul t Date: 025 2214 Resul t Statu s: Final resul t Abnor mal: Yes Stefan gonzalez Lab: [facility] [address] [facility] [address] Tel: CULTU RE ----- ----- ----- --- [...] <=0.5 ug/mL Susce ptibl e Not Available [facility] (Lab) [address], [place], [address], 11/12/2024 23:18:21 11/11/19 25 11/10/2024 drug scree n, urine Amphetamines : negati ve Not Available [facility] [address], [place], [address], 11/10/2024 15:41:40 11/11/19 25 11/10/2024 drug scree n, urine Cannabinoids : negati ve Not Available [facility] [address], [place], [address], 11/10/2024 15:41:40 11/11/19 25 11/10/2024 drug scree n, urine Cocaine: negati ve Not Available [facility] [address], [place], [address], 11/10/2024 15:41:40 11/11/19 25 11/10/2024 drug scree n, urine Opiates: negati ve Not Available [facility] [address], [place], [address], 11/10/2024 15:41:40 11/11/19 25 11/10/2024 drug scree n, urine Phenocyclidi ne: negati ve Not Available [facility] [address], [place], [address], 11/10/2024 15:41:40 11/11/19 25 11/10/2024 drug scree n, urine Barbiturates : negati ve Not Available [facility] [address], [place], [address], 11/10/2024 15:41:40 11/11/19 25 11/10/2024 drug scree n, urine Benzodiazepi trent: negati ve Not Available [facility] [address], [place], [address], 11/10/2024 15:41:40 11/11/19 25 11/10/2024 drug scree n, urine Ethanol: negati ve Not Available [facility] [address], [place], [address], 11/10/2024 15:41:40 11/11/19 25 11/10/2024 drug scree n, urine Hallucinogen s: negati ve Not Available [facility] [address], [place], [address], 11/10/2024 15:41:40 11/11/19 25 11/10/2024 drug scree n, urine Inhalants: negati ve Not Available [facility] [address], [place], [address], 11/10/2024 15:41:40 11/11/19 25 11/10/2024 drug scree n, urine Anabolic Steroids: negati ve Not Available [facility] [address], [place], [address], 11/10/2024 15:41:40 11/11/19 25 11/10/2024 drug scree n, urine Other: negati ve Not Available [facility] [address], [place], [address], 11/10/2024 15:41:40 01/31/20 25 01/30/2025 CMP/C BC/UR IC ACID uric acid 3.7 mg/dL 2.3-6. 6 Not Available [facility] (Lab) [address] [place], [address], 01/31/2025 05:01:03 01/31/20 25 01/30/2025 CMP/C BC/UR IC ACID sodium 139 mmol/ L 133-14 6 Not Available [facility] (Lab) [address] [facility], [place], [address], 01/31/2025 05:01:03 01/31/20 25 01/30/2025 CMP/C BC/UR IC ACID potassium 3.7 mmol/ L 3.5-5. 1 Not Available [facility] (Lab) [address] [facility], [place], [address], 01/31/2025 05:01:03 01/31/20 25 01/30/2025 CMP/C BC/UR IC ACID chloride 105 mmol/ L 98-107 Not Available [facility] (Lab) [address] [facility], [place], [address], 01/31/2025 05:01:03 01/31/20 25 01/30/2025 CMP/C BC/UR IC ACID carbon dioxide 24 mmol/ L 21-31 Not Available [facility] (Lab) [address] [place], [address], 01/31/2025 05:01:03 01/31/20 25 01/30/2025 CMP/C BC/UR IC ACID anion gap 10 mmol/ L 4-13 Not Available [facility] (Lab) [address] [place], [address], 01/31/2025 05:01:03 01/31/20 25 01/30/2025 CMP/C BC/UR IC ACID blood urea nitrogen 5 mg/dL 7-25 low Not Available [facility] (Lab) [address] [place], [address], 01/31/2025 05:01:03 01/31/20 25 01/30/2025 CMP/C BC/UR IC ACID creatinine 0.48 mg/dL 0.60-1 .30 low Not Available [facility] (Lab) [address] [facility], [place], [address], 01/31/2025 05:01:03 01/31/20 25 01/30/2025 CMP/C BC/UR IC ACID egfrcr (CKD-epi 2020) >90 mL/mi n/1.7 3_m2 >=60 Not Available [facility] (Lab) [address] [facility], [place], [address], 01/31/2025 05:01:03 01/31/20 25 01/30/2025 CMP/C BC/UR IC ACID calcium 9.2 mg/dL 8.3-10 .5 Not Available [facility] (Lab) [address] [facility], [place], [address], 01/31/2025 05:01:03 01/31/20 25 01/30/2025 CMP/C BC/UR IC ACID glucose 97 mg/dL 70-100 Not Available [facility] (Lab) [address] [facility], [place], [address], 01/31/2025 05:01:03 01/31/20 25 01/30/2025 CMP/C BC/UR IC ACID protein, total 6.3 g/dL 6.4-8. 3 low Not Available [facility] (Lab) [address] [place], [address], 01/31/2025 05:01:03 01/31/20 25 01/30/2025 CMP/C BC/UR IC ACID albumin 3.6 g/dL 3.5-5. 0 Not Available [facility] (Lab) [address] [place], [address], 01/31/2025 05:01:03 01/31/20 25 01/30/2025 CMP/C BC/UR IC ACID ALT 10 units /L 9-43 Not Available [facility] (Lab) [address] [place], [address], 01/31/2025 05:01:03 01/31/20 25 01/30/2025 CMP/C BC/UR IC ACID alkaline phosphatase 73 units /L 34-104 Not Available [facility] (Lab) [address] [place], [address], 01/31/2025 05:01:03 01/31/20 25 01/30/2025 CMP/C BC/UR IC ACID AST 10 units /L 13-39 low Not Available [facility] (Lab) [address] [facility], [place], [address], 01/31/2025 05:01:03 01/31/20 25 01/30/2025 CMP/C BC/UR IC ACID bilirubin, total 0.2 mg/dL 0.2-1. 2 Not Available [facility] (Lab) [address] [place], [address], 01/31/2025 05:01:03 01/31/20 25 01/30/2025 CMP/C BC/UR IC ACID WBC 8.3 10'3/ uL 3.5-10 .5 Not Available [facility] (Lab) [address] [place], [address], 01/31/2025 05:01:03 01/31/20 25 01/30/2025 CMP/C BC/UR IC ACID RBC 4.01 10'6/ uL (based on docume nted legal sex) 3.80-5 .20 Not Available [facility] (Lab) [address] [facility], [place], [address], 01/31/2025 05:01:03 01/31/20 25 01/30/2025 CMP/C BC/UR IC ACID HGB 11.8 g/dL (based on docume nted legal sex) 11.6-1 5.4 Not Available [facility] (Lab) [address] [place], [address], 01/31/2025 05:01:03 01/31/20 25 01/30/2025 CMP/C BC/UR IC ACID HCT 36.0 % (based on docume nted legal sex) 34.0-4 5.0 Not Available [facility] (Lab) [address] [facility], [place], [address], 01/31/2025 05:01:03 01/31/20 25 01/30/2025 CMP/C BC/UR IC ACID MCV 89.8 fL 80.0-9 9.0 Not Available [facility] (Lab) [address] [facility], [place], [address], 01/31/2025 05:01:03 01/31/20 25 01/30/2025 CMP/C BC/UR IC ACID MCH 29.4 pg 27.0-3 4.0 Not Available [facility] (Lab) [address] [facility], [place], [address], 01/31/2025 05:01:03 01/31/20 25 01/30/2025 CMP/C BC/UR IC ACID MCHC 32.8 g/dL 32.0-3 5.5 Not Available [facility] (Lab) [address] [facility], [place], [address], 01/31/2025 05:01:03 01/31/20 25 01/30/2025 CMP/C BC/UR IC ACID RDW 13.5 % 11.0-1 5.0 Not Available [facility] (Lab) [address] [place], [address], 01/31/2025 05:01:03 01/31/20 25 01/30/2025 CMP/C BC/UR IC ACID plt 211 10'3/ uL 150-40 0 Not Available [facility] (Lab) [address] [place], [address], 01/31/2025 05:01:03 01/31/20 25 01/30/2025 CMP/C BC/UR IC ACID MPV 11.9 fL 8.8-12 .1 Not Available [facility] (Lab) [address] [place], [address], 01/31/2025 05:01:03 01/31/20 25 01/30/2025 CMP/C BC/UR IC ACID NRBC's 0.0 % 0.0 Not Available [facility] (Lab) [address] [facility], [place], [address], 01/31/2025 05:01:03 01/31/20 25 01/30/2025 CMP/C BC/UR IC ACID absolute NRBCs 0.0 10'3/ uL no refere nce range establ ished Not Available [facility] (Lab) [address] [facility], [place], [address], 01/31/2025 05:01:03 01/31/20 25 01/30/2025 CMP/C BC/UR IC ACID neutrophils 72.0 % 34.0-7 3.0 Not Available [facility] (Lab) [address] [place], [address], 01/31/2025 05:01:03 01/31/20 25 01/30/2025 CMP/C BC/UR IC ACID lymphocytes 18.5 % 15.0-5 0.0 Not Available [facility] (Lab) [address] [place], [address], 01/31/2025 05:01:03 01/31/20 25 01/30/2025 CMP/C BC/UR IC ACID monocytes 6.9 % 1.0-15 .0 Not Available [facility] (Lab) [address] [place], [address], 01/31/2025 05:01:03 01/31/20 25 01/30/2025 CMP/C BC/UR IC ACID eosinophils 1.3 % 0.0-8. 0 Not Available [facility] (Lab) [address] [place], [address], 01/31/2025 05:01:03 01/31/20 25 01/30/2025 CMP/C BC/UR IC ACID basophils 0.5 % 0.0-2. 0 Not Available [facility] (Lab) [address], [place], [address], 01/31/2025 05:01:03 01/31/20 25 01/30/2025 CMP/C BC/UR [...] separ ately if prese nt. Not Available [facility] (Lab) [address] [place], [address], 01/31/2025 05:01:03 01/31/20 25 01/30/2025 CMP/C BC/UR IC ACID absolute neutrophils 6.0 10'3/ uL 1.5-8. 0 Not Available [facility] (Lab) [address] [facility], [place], [address], 01/31/2025 05:01:03 01/31/20 25 01/30/2025 CMP/C BC/UR IC ACID absolute lymphocytes 1.5 10'3/ uL 1.0-4. 0 Not Available [facility] (Lab) [address], [place], [address], 01/31/2025 05:01:03 01/31/20 25 01/30/2025 CMP/C BC/UR IC ACID absolute monocytes 0.6 10'3/ uL 0.2-1. 0 Not Available [facility] (Lab) [address] [place], [address], 01/31/2025 05:01:03 01/31/20 25 01/30/2025 CMP/C BC/UR IC ACID absolute eosinophils 0.1 10'3/ uL 0.0-0. 6 Not Available [facility] (Lab) [address] [facility], [place], [address], 01/31/2025 05:01:03 01/31/20 25 01/30/2025 CMP/C BC/UR IC ACID absolute basophils 0.0 10'3/ uL 0.0-0. 3 Not Available [facility] (Lab) [address] [facility], [place], [address], 01/31/2025 05:01:03 01/31/20 25 01/30/2025 CMP/C BC/UR IC ACID absolute immature granulocytes 0.1 10'3/ uL 0.00-0 .10 Refer ence range s for nonbi nary/ inter sex or unspe cifie d gende r patie nts have not been estab lishe d. Pleas e refer [facility] table for range s estab lishe d for cisge nder patie nts and evalu ate in the clini beena farrukh xt of the indiv idual patie nt: https :[email or web address] [email or web address] book. nm.or g/gen derx Not Available [facility] (Lab) [address] [facility], [place], [address], 01/31/2025 05:01:03 01/31/20 25 01/30/2025 PROTE IN/CR EATIN INE RATIO , URINE creatinine, urine 11.2 mg/dL R-No refer ence range estab lishe d for this assay Not Available [facility] (Lab) [address] [facility], [place], [address], 01/31/2025 05:01:04 01/31/20 25 01/30/2025 PROTE IN/CR EATIN INE RATIO , URINE protein, urine <4 mg/dL R-No refer ence range estab lishe d for this assay Not Available [facility] (Lab) [address] [facility], [place], [address], 01/31/2025 05:01:04 01/31/20 25 01/30/2025 PROTE IN/CR [...] fican t prote inuri a. Not Available [facility] (Lab) [address] [facility], [place], [address], 01/31/2025 05:01:04 02/28/2002/27/2025 GTT - GESTA MARVEL L SCREE N, ACOG OB glucose, 1 hour screen 162 mg/dL 70-135 high Not Available [facility] (Lab) [address] [facility], [place], [address], 02/28/2025 11:58:20 02/28/2002/27/2025 HEMAT OCRIT (HCT) HCT 35.3 % (based on docume nted legal sex) 34.0-4 5.0 Not Available [facility] (Lab) [address] [facility], [place], [address], 02/28/2025 11:58:20 02/28/20 25 02/27/2025 HEMOG LOBIN (HGB) HGB 11.5 g/dL (based on docume nted legal sex) 11.6-1 5.4 low Not Available [facility] (Lab) [address] [place], [address], 02/28/2025 11:58:21 02/28/2002/27/2025 HIV 1/2 ANTIG EN/AN TIBOD Y, REFLE X CONFI RMATI ON HIV antigen/anti body Nonrea ctive nonrea ctive HIV-1 antig en and HIV-1 /HIV- 2 antib odies were not detec liset. No labor atory evide nce of HIV infec tion. Not Available [facility] (Lab) [address] [facility], [place], [address], 02/28/2025 11:58:21 02/28/20 25 02/27/2025 RPR SCREE N, REFLE X TITER /CONF IRMAT ION RPR qualitative Nonrea ctive nonrea ctive Not Available [facility] (Lab) [address] [place], [address], 02/28/2025 11:58:22 03/06/20 25 03/06/2025 GTT - GESTA MARVEL L, 3 HOUR, ACOG glucose, fasting acog 75 mg/dL 70-94 Not Available [facility] (Lab) [address] [place], [address], 03/09/2025 14:10:52 03/06/20 25 03/06/2025 GTT - GESTA MARVEL L, 3 HOUR, ACOG glucose, 1 hour acog 166 mg/dL 70-179 Not Available [facility] (Lab) [address] [place], [address], 03/09/2025 14:10:52 03/06/20 25 03/06/2025 GTT - GESTA MARVEL L, 3 HOUR, ACOG glucose, 2 hour acog 153 mg/dL 70-154 Not Available [facility] (Lab) [address] [place], [address], 03/09/2025 14:10:52 03/06/20 25 03/06/2025 GTT - GESTA MARVEL L, 3 HOUR, ACOG glucose, 3 hour acog 129 mg/dL 70-139 Not Available [facility] (Lab) [address] [place], [address], 03/09/2025 14:10:52 04/26/20 25 04/26/2025 CULTU RE: [...] t Abnor mal: No Resul ting Lab: [facility] [address] [facility] [address] Tel: CULTU RE ----- ----- ----- --- No Group B strep isola liset at 2 days (palmer ctive broth enhan cemen t) Not Available [facility] (Lab) [address], [place], [address], 04/29/2025 15:53:56 10/11/19 25 10/10/2024 US, obste tric, 1st trime ster No observ ation record ed. [email or web address], [place], [address], 10/10/2024 11:04:01 11/10/19 25 11/09/2024 US, obste tric, nucha l trans lucen cy No observ ation record ed. [email or web address] [address], [place], [address], 11/09/2024 18:22:59 11/10/19 25 11/09/2024 US, obste tric, nucha l trans lucen cy No observ ation record ed. [email or web address] [address], [place], [address], 11/09/2024 22:19:50 01/03/20 25 01/02/2025 US, obste tric, 2nd or 3rd trime ster No observ ation record ed. [email or web address] [facility] [address], [place], [address], 01/02/2025 18:17:38 01/03/20 25 01/02/2025 US, obste tric, follo w-up No observ ation record ed. [email or web address] [address], [place], [address], 01/09/2025 17:57:54 01/03/20 25 01/02/2025 US, obste tric, 2nd or 3rd trime ster No observ ation record ed. [email or web address] [address], [place], [address], 01/03/2025 18:02:23 01/03/20 25 01/02/2025 US, obste tric, 2nd or 3rd trime ster No observ ation record ed. [email or web address] [address], [place], [address], 01/03/2025 18:02:23 03/18/20 25 03/17/2025 imagi ng/di agnos tic resul t No observ ation record ed. [address], [place], [address], 03/20/2025 11:13:18 03/20/20 25 03/18/2025 US, salin e infus ed uteru s No observ ation record ed. [email or web address], [place], [address], 03/20/2025 16:12:25 03/22/20 25 03/22/2025 non-s tress test No observ ation record ed. [facility] [address], [place], [address], 03/22/2025 11:55:23 03/22/20 25 03/20/2025 non-s tress test No observ ation record ed. [email or web address] Not Available 03/22 23:40:54 03/27/20 25 03/27/2025 US, obste tric, follo w-up No observ ation record ed. [email or web address] [facility] [address], [place], [address], 03/27/2025 13:07:17 03/27/20 25 03/27/2025 US, obste tric, bioph ysica l profi le + non-s tress test No observ ation record ed. [email or web address] [facility] [address], [place], [address], 03/27/2025 13:07:42 03/27/20 25 03/27/2025 US, obste tric, follo w-up No observ ation record ed. [email or web address] [address], [place], [address], 03/27/2025 10:39:08 03/27/20 25 03/27/2025 non-s tress test No observ ation record ed. [email or web address] [facility] [address], [place], [address], 03/27/2025 11:15:38 03/27/20 non-s tress test No observ ation record ed. [email or web address] [facility] [address], [place], [address], 03/27/2025 11:06:00 04/03/20 25 04/03/2025 US, fede tric, bioph ysica l profi le + non-s tress test No observ ation record ed. [email or web address] [facility] [address], [place], [address], 04/03/2025 18:27:14 04/03/20 25 04/03/2025 US, obste tric, bioph ysica l profi le + non-s tress test No observ ation record ed. [email or web address] [address], [place], [address], 04/04/2025 18:59:15 04/03/20 25 04/03/2025 non-s tress test No observ ation record ed. OLIVIA [facility] [address], [place], [address], 04/04/2025 10:33:24 04/03/20 25 non-s tress test No observ ation record ed. [email or web address] [facility] [address], [place], [address], 04/03/2025 11:35:14 04/10/20 25 04/11/2025 US, obste tric, bioph ysica l profi le + non-s tress test No observ ation record ed. [email or web address] [facility] [address], [place], [address], 04/11/2025 12:31:31 04/10/2004/10/2025 US, obste tric, bioph ysica l profi le + non-s tress test No observ ation record ed. [email or web address] [address], [place], [address], 04/10/2025 14:16:39 04/10/2004/10/2025 non-s tress test No observ ation record ed. [email or web address] [facility] [address], [place], [address], 04/10/2025 14:16:00 04/10/20 non-s tress test No observ ation record ed. [email or web address] [facility] [address], [place], [address], 04/10/2025 14:16:00 04/18/20 25 04/18/2025 US, obste tric, bioph ysica l profi le + non-s tress test No observ ation record ed. [email or web address] [facility] [address], [place], [address], 04/18/2025 18:03:02 04/18/2004/18/2025 US, obste tric, bioph ysica l profi le + non-s tress test No observ ation record ed. [email or web address] [address], [place], [address], 04/21/2025 01:47:31 04/18/2004/18/2025 non-s tress test No observ ation record ed. [email or web address] [facility] [address], [place], [address], 04/19/2025 16:02:09 04/18/20 non-s tress test No observ ation record ed. [facility] [address], [place], [address], 04/18/2025 17:19:05 04/25/2004/25/2025 US, obste tric, follo w-up No observ ation record ed. [email or web address] [facility] [address], [place], [address], 04/25/2025 18:00:59 04/25/2004/25/2025 US, obste tric, bioph ysica l profi le + non-s tress test No observ ation record ed. [email or web address] [facility] [address], [place], [address], 04/25/2025 18:00:41 04/25/2004/25/2025 US, obste tric, follo w-up No observ ation record ed. [address], [place], [address], 04/25/2025 19:59:27 04/25/2004/26/2025 non-s tress test No observ ation record ed. [email or web address] [facility] [address], [place], [address], 04/26/2025 12:42:17 04/25/20 non-s tress test No observ ation record ed. [email or web address] [facility] [address], [place], [address], 04/25/2025 18:05:07 05/01/2005/01/2025 US, obste tric, bioph ysica l profi le + non-s tress test No observ ation record ed. [email or web address] [facility] [address], [place], [address], 05/01/2025 11:27:23 05/01/2005/01/2025 US, obste tric, bioph ysica l profi le + non-s tress test No observ ation record ed. OLIVIA [address] [facility], [place], [address], 05/01/2025 21:15:25 05/02/2005/02/2025 non-s tress test No observ ation record ed. [facility] [address], [place], [address], 05/02/2025 17:00:00 05/02/2005/01/2025 non-s tress test No observ ation record ed. [email or web address] Not Available 2024 15:39:46 05/02/20 non-s tress test No observ ation record ed. [email or web address] Not Available 2024 15:39:46 05/08/2005/08/2025 US, obste tric, bioph ysica l profi le + non-s tress test No observ ation record ed. [email or web address] [facility] [address], [place], [address], 05/08/2025 13:28:33 05/08/2005/0805/08/2025 US, obste tric, bioph ysica l profi le + non-s tress test No observ ation record ed. [email or web address], [place], [address], 05/08/2025 10:25:28 05/08/2005/08/2025 non-s tress test No observ ation record ed. [address], [place], [address], 05/08/2025 11:20:04 05/08/20 non-s tress test No observ ation record ed. [address], [place], [address], 05/08/2025 11:21:52 Result Notes None recorded. Problems Name Problem SNOMED Code Status Onset Date Resolution Date Notes Provider Name and Address Organization Details Recorded Time 25852420 Active 2024 CHAS [email or web address] [facility] 5 10:29:46 Chronic hypertens ion complicat ing AND/OR reason for care during 72210513 Active 2024 - elevated BP in office at 24 weeks, asymptomat ic - on chart review, multiple elevated BP outside of - baseline labs ordered - plan for 32 week testing JACK RHODES MD [address], [place], [address], [facility] 11:42:33 Problem Notes None recorded. Procedures Surgical History Date Name Laterality Status Provider Name and Address Organization Details Recorded Time 5 SIS completed JACK RHODES MD [address], [place], [address], [facility] 08/15/2024 22:58:22 4 Date of Last Pap Smear completed Rosita Ospina [facility] 07/27/2024 14:07:04 11/20/202 3 Dilation and Curettage completed Rositajatinder Ospina [facility] 04/27/2024 09:48:11 Imaging Results None recorded. [...] Address Organization Details Last Updated DateTime 5 31473.3 977 g 38.4 kg/m2 157.48 cm 157.48 cm 38.4 kg/m2 08599.4 g 134/90 mm[Hg] 134/90 mm[Hg] Norma Durondarrel [facility] 11:19:04 Social History Question Answer Notes LastModified by Organizat ion Details LastModified Time How Many Years Have You Consumed Alcohol? 7 [email or web address] Information not available 04/27/2024 Are You Blind Or Do You Have Difficulty Seeing? No [email or web address] Information not available 04/27/2024 What Is Your Level Of Caffeine Consumption? Heavy [email or web address] Information not available 04/27/2024 How Much Tobacco Do You Chew? None [email or web address] Information not available 04/27/2024 In The 14 Days Before Symptom Onset, Have You Had Close Contact With A Laboratory-confirme d COVID-19 While That Case Was Ill? No [email or web address] Information n ot available 04/27/2024 In The 14 Days Before Symptom Onset, Have You Had Close Contact With A Person Who Is Under Investigation For COVID-19 While That Person Was Ill? No [email or web address] Information not available 04/27/2024 Have You Been To An Area Known To Be High Risk For COVID-19? No [email or web address] Information not available 04/27/2024 Are You Deaf Or Do You Have Serious Difficulty Hearing? No [email or web address] Information not available 04/27/2024 What Type Of Diet Are You Following? REGULAR [email or web address] Information n ot available 04/27/2024 What Is The Highest Grade Or Level Of School You Have Completed Or The Highest Degree You Have Received? [id number] [email or web address] Information not available 04/27/2024 Are There Any Guns Present In Your Home? Yes [email or web address] Information not available 04/27/2024 Do You Use Protection During Sex? No [email or web address] Information not available 04/27/2024 Do You Use Your Seat Belt Or Car Seat Routinely? Yes [email or web address] Information not available 04/27/2024 Are You Sexually Active? Yes [email or web address] Information not available 07/27/2024 Do You Have Smoke And Carbon Monoxide Detectors In Your Home? Yes [email or web address] Information not available 04/27/2024 How Much Tobacco Do You Smoke? No [email or web address] Information not available 04/27/2024 Do You Use Sunscreen Routinely? Yes [email or web address] Information not available 04/27/2024 Have You Used IV Drugs? No [email or web address] Information not available 04/27/2024 Do You Have Difficulty Walking Or Climbing Stairs? No Information not available 07/27/2024 Sex: Unknown Functional Status Question Answer Note LastModified by Organizat ion Details LastModified Time Do you use any illicit or recreational drugs? No [email or web address] Information not available 04/27/2024 What is your level of alcohol consumption? Moderate [email or web address] Information not available 04/27/2024 Are you currently employed? Yes [email or web address] Information not available 07/27/2024 Are you able to walk independently without assistance or assistive devices? YESWOREST Information not available 04/27/2024 Are you able to care for yourself independently? 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 No [email or web address] Information not available 07/27/2024 What is your exercise level? None [email or web address] Information not available 04/27/2024 Mental Status Question Answer Note LastModified by Organization D etails LastModified Time Do you feel stressed (tense, restless, nervous, or anxious, or unable to sleep at night)? [id number] [email or web address] Information not available 04/27/2024 Family History Relationship Description Onset Age of this Age Resolved Age Notes LastModified by Organization Details LastModified Time Mother Disorder of thyroid gland Not available 2023 09:48:11 Maternal Aunt Disorder of thyroid gland [email or web address] Not available 2023 09:48:11 Brother Hypercholest erolemia [email or web address] Not available 2023 09:48:11 Paternal Grandfather Heart disease [email or web address] Not available 2023 09:48:11 Medical History Condition [...] ICD10 Code Diagnosis IMO Codes Diagnosis Note [id number] JACK RHODES MD [facility] [address] [address] 04/10/2025 09:22:39 04/10/2025 09:54:16 Chronic hypertension complicating AND/OR reason for care during 91731671 O10.913 Z3A.34 28258737 - elevated BP in office at 24 weeks, asymptomat ic- on chart review, multiple elevated BP outside of - baseline labs wnl- continue weekly testing [id number] JACK RHODES MD [facility] [address],[place] [address] 04/10/2025 09:22:56 04/10/2025 10:42:15 Maternal obesity complicating , childbirth and the puerperium, antepartum 2359420631 07 O99.210 4148539475 [id number] JACK RHODES MD [facility] [address],[place] [address] 04/10/2025 09:23:13 04/10/2025 11:14:34 Chronic hypertension complicating AND/OR reason for care during 42994192 O10.919 51061134 - elevated BP in office at 24 weeks, asymptomat ic- on chart review, multiple elevated BP outside of - baseline labs wnl- continue weekly testing Gestation period, 34 weeks 72844482 Z3A.34 6678611 [id number] JACK RHODES MD [facility] [address],[place] [address] 04/18/2025 16:15:32 04/18/2025 16:57:27 Essential hypertension complicating AND/OR reason for care during 42342636 O10.013 Z3A.35 3012381 [id number] JACK RHODES MD [facility] [address],[place] [address] 04/18/2025 16:15:58 04/18/2025 17:20:30 Maternal obesity complicating , childbirth and the puerperium, antepartum 1346190751 07 O99.210 E66.09 0071261883 [id number] JACK RHODES MD [facility] [address],[place] [address] 04/18/2025 16:16:23 04/18/2025 17:59:57 Chronic hypertension complicating AND/OR reason for care during 99849018 O10.919 87738554 - elevated BP in office at 24 weeks, asymptomat ic- on chart review, multiple elevated BP outside of - baseline labs wnl- continue weekly testing Gestation period, 35 weeks 95341801 Z3A.35 6482881 [id number] JACK RHODES MD [facility] [address],[place] [address] 04/25/2025 16:17:33 04/25/2025 16:57:53 Essential hypertension complicating AND/OR reason for care during 81599720 O10.013 Z3A.36 0808608 [id number] JACK RHODES MD [facility] [address],[place] [address] 04/25/2025 16:17:57 04/25/2025 18:03:35 Chronic hypertension complicating AND/OR reason for care during 09881965 O10.919 24612309 - elevated BP in office at 24 weeks, asymptomat ic- on chart review, multiple elevated BP outside of - baseline labs wnl- continue weekly testing [id number] JACK RHODES MD [facility] [address],[place] [address] 04/25/2025 16:18:16 04/26/2025 08:25:30 Chronic hypertension complicating AND/OR reason for care during 45331243 O10.919 74089494 - elevated BP in office at 24 weeks, asymptomat ic- on chart review, multiple elevated BP outside of - baseline labs wnl- continue weekly testing Gestation period, 36 weeks 94691303 Z3A.36 5123271 - continue PNV [id number] JACK RHODES MD [facility] [address],[place] [address] 05/01/2025 09:56:29 05/01/2025 10:24:07 Essential hypertension complicating AND/OR reason for care during 82452537 O10.013 Z3A.37 1183651 [id number] JACK RHODES MD [facility] [address],[place] [address] 05/01/2025 09:57:00 05/02/2025 12:08:45 Chronic hypertension complicating AND/OR reason for care during 13663223 O10.913 53701969 - elevated BP in office at 24 weeks, asymptomat ic- on chart review, multiple elevated BP outside of - baseline labs wnl- continue weekly testing [id number] JACK RHODES MD [facility] [address],[place] [address] 05/01/2025 09:57:27 05/01/2025 16:16:48 Chronic hypertension complicating AND/OR reason for care during 73447654 O10.919 25735223 - elevated BP in office at 24 weeks, asymptomat ic- on chart review, multiple elevated BP outside of - baseline labs wnl- continue weekly testing Gestation period, 37 weeks 17685708 Z3A.37 9204778 - continue pNV [id number] JACK RHODES MD [facility] [address],[place] [address] 05/08/2025 10:00:06 05/08/2025 10:25:13 Maternal hypertension 333399165 O16.3 O10.913 Z3A.38 7465093 [id number] JACK RHODES MD [facility] [address],[place] [address] 05/08/2025 10:00:43 05/08/2025 11:33:40 Chronic hypertension complicating AND/OR reason for care during 96811498 O10.919 71361992 [id number] JACK RHODES MD [facility] [address] [address] 05/08/2025 10:00:57 05/08/2025 11:42:56 Chronic hypertension complicating AND/OR reason for care during 31059632 O10.919 29251963 - induction today at 38 weeks Gestation period, 38 weeks 52052621 Z3A.38 8921280 - continue PNV Health Concerns Section Related Observation LastModified by Organization Detai ls LastModified Time None Recorded Concern Status LastModified by Organization Details LastModified Time None Recorded Payers Encounter Date Sequence Insurance Name Policy Number Policy Garcia Covered Member ID Garcia Member ID Guarantor Name 05/08/2025 1 [facility] ([facility] [id number] Tito Tamayo [id number] Leelee Tamayo Notes Date Note Type Note Provider Name and Address Organization Details Recorded Time 05/08/2025 text/html Generic HPI TemplateReported by Patient JACK RHODES MD [address], [place], [address], [facility] 05/08/2025 11:41:09 OBGyn Episode Ob Episode Information Episode Created Date Number of Fetuses Patient Bloodtype Patient rh Status Prepregnancy Weight lbs Domestic Partner Domestic Partner Phone Father Name Md Urologist Status 10/11/19 25 1 A Positive 194 OPEN Fetus Data First Name Last Name Admitted to NICU Weight (g) Sex Living Outcome Pediatric Complications Fetus ID Race Codes Race Delivery Type [id number] Problems Problem Notes arrhythmia noted LD - Referr al faxed to [facility] Len[place] 03/23 Problem Name Start Date End Date Resolution Snomed Code Not e Chronic hypertension complicating AND/OR reason for care during 01/30/2025 86716511 - elevated BP i n office at [...] Weight in lbs Pre/Post Dialysis Refused Weight 194.381665606053 BP Diastolic BP Location Tested BP Systolic [...] Type Weight in lbs Pre/Post Dialysis Refused 197.336963953995 BP Diastolic BP Location Tested BP Systolic [...] Type Weight in lbs Pre/Post Dialysis Refused 198.356757797603 BP Diastolic BP Location Tested BP Systolic [...] Weight in lbs Pre/Post Dialysis Refused Weight 198.519814742207 BP Diastolic BP Location Tested BP Systolic [...] Weight in lbs Pre/Post Dialysis Refused Weight 202.156614235631 BP Diastolic BP Location Tested BP Systolic [...] Weight in lbs Pre/Post Dialysis Refused Weight 202.044995220902 BP Diastolic BP Location Tested BP Systolic [...] Weight in lbs Pre/Post Dialysis Refused Weight 205.100033602787 BP Diastolic BP Location Tested BP Systolic [...] Type Weight in lbs Pre/Post Dialysis Refused 204.652050913828 BP Diastolic BP Location Tested BP Systolic [...] Weight in lbs Pre/Post Dialysis Refused Weight 203.414569505898 BP Diastolic BP Location Tested BP Systolic BP Type 87 L arm 135 sitting Fetus Heart Rate Present Fetus Movement A Yes Comments Flowsheet Date 03/27/2025 Hopson Score Blood Edema Fundus Height Fundus Units Glucose Ketones Leukocytes Nitrite Labor Signs Protein Cervic Dilation Cervic Effacement Cervic Station Type Weight in lbs Pre/Post Dialysis Refused 203.33027694578 BP Diastolic BP Location Tested BP Systolic [...] Weight in lbs Pre/Post Dialysis Refused Weight 207.344000745947 BP Diastolic BP Location Tested BP Systolic [...] Type Weight in lbs Pre/Post Dialysis Refused 206.364379407841 BP Diastolic BP Location Tested BP Systolic BP Type 85 R arm 128 sitting Fetus Heart Rate Present Fetus Movement Comments Flowsheet Date 04/10/2025 Hopson Score Blood Edema Fundus Height Fundus Units Glucose Ketones Leukocytes Nitrite Labor Signs Protein Cervic Dilation Cervic Effacement Cervic Station Type Weight in lbs Pre/Post Dialysis Refused Weight 206.917855339852 BP Diastolic BP Location Tested BP Systolic [...] Type Weight in lbs Pre/Post Dialysis Refused 206.673748434051 BP Diastolic BP Location Tested BP Systolic [...] Type Weight in lbs Pre/Post Dialysis Refused 209.142947293856 BP Diastolic BP Location Tested BP Systolic BP Type 89 L arm 131 sitting Fetus Heart Rate Present Fetus Movement A Yes Comments Flowsheet Date 04/25/2025 Hopson Score Blood Edema Fundus Height Fundus Units Glucose Ketones Leukocytes Nitrite Labor Signs Protein Cervic Dilation Cervic Effacement Cervic Station Type Weight in lbs Pre/Post Dialysis Refused Weight 209.116221134801 BP Diastolic BP Location Tested BP Systolic [...] Weight in lbs Pre/Post Dialysis Refused Weight 208.623173740704 BP Diastolic BP Location Tested BP Systolic [...] Weight in lbs Pre/Post Dialysis Refused Weight 210.170748320881 BP Diastolic BP Location Tested BP Systolic BP Type 90 L arm 134 sitting Fetus Heart Rate Present Fetus Movement Comments Flowsheet Date 05/08/2025 Hopson Score Blood Edema Fundus Height Fundus Units Glucose Ketones Leukocytes Nitrite Labor Signs Protein Cervic Dilation Cervic Effacement Cervic Station 0cm 50% -3 Type Weight in lbs Pre/Post Dialysis Refused 210.183016908813 BP Diastolic BP Location Tested BP Systolic [...]
--- OUTSIDE RECORDS SUMMARY | 2025-05-08 17:20 | XMS_ITS | Clinical Summary ---
Author Organization [facility] Address [address] [place] [address] Care Team Providers Care Field Worker Name Role Phone Tari Kennedy NP Primary Care Provider [phone] Allergies No known active allergies Medications No known medications Active Problems Problem Noted Date Diagnosed Date Missed 06/01/2023 Social History Tobacco Use Types Packs/Day [...] Comments Blood Pressure 110/75 06/01/2023 11:30 AM BI REPORT DEVELOPER Pulse 88 06/01/2023 11:15 AM BI REPORT DEVELOPER Temperature 36.8 C (98.2 F) 06/01/2023 8:09 AM BI REPORT DEVELOPER Respiratory Rate 16 06/01/2023 11:04 AM BI REPORT DEVELOPER Oxygen Saturation 98% 06/01/2023 11:29 AM BI REPORT DEVELOPER Inhaled Oxygen Concentration - - Weight 81.2 kg (179 lb) 06/01/2023 8:09 AM BI REPORT DEVELOPER Height 157.5 cm (5' 2) 06/01/2023 8:09 AM BI REPORT DEVELOPER Body Mass Index 32.74 06/01/2023 8:09 AM BI REPORT DEVELOPER Plan of Treatment Health Maintenance Due Date Last Done Comments Cervical Cancer Screening Pap Smear (Age 21 to 29) Every 3 Years 1995 Cervical Cancer Screening 1995 Annual Physical 12/25/1998 Hepatitis C 12/25/2013 DTaP, Tdap and Td Vaccines (6 - Td or Tdap) 12/18/2020 12/18/2010, 02/21/2002, 05/10/1999, Additional history exists HPV Vaccines (1 - 3-dose SCDM series) 12/25/2022 COVID-19 Vaccine ( season) 2025 Influenza Adult (#1) 2025 Hepatitis B Vaccines Completed 08/05/1997, 01/25/1996, 01/01/1996 Hepatitis A Vaccines Aged Out No long er eligible based on patient's age to complete [...] patient's age to complete this topic Insurance [facility] Advance Directives * Full Code (Latest Code Status on File) Date Activated Date Inactivated Comments 06/01/2023 11:33 AM 06/01/2023 1:59 PM Care Teams Field Worker Relationship Specialty Start Date End Date Tari Kennedy NP [address] [place] [phone] PCP - General Nurse Practitioner Family 05/20/23
--- OUTSIDE RECORDS SUMMARY | 2025-05-08 17:20 | XMS_ITS | Data Portability ---
Author Organization [facility] [place] Address [address] [place] [address] Care Team Providers Care Weft Straightener Name Role Phone JALEEL DE LEON Primary Care Provider [phone] Assessment No assessment recorded. Plan of Treatment [...] d. Imaging non-str ess test 2024 025 [email or web address] [place], [address], [place], [address], 05/08/2025 11:33:40 US, obstetr ic, biophys ical profile + non-str ess test 2024 025 [place], [address], [place], [address], 05/08/2025 17:59:34 non-str ess test 2024 025 [email or web address] [address], [address], [place], [address], 05/02/2025 15:38:27 US, obstetr ic, biophys ical profile + non-str ess test 2024 025 [email or web address] [address], [address], [place], [address], 05/01/2025 16:55:00 Medication Orders None recorde d. Patient TargetsNo [...] t Abnor mal: No Resul ting Lab: [facility] [address] [facility] [place] [address] Tel: CULTU RE ----- ----- ----- --- No Group B strep isola liset at 2 days (palmer ctive broth enhan cemen t) Not Available [facility] (Lab) [address] [facility], [place], [address], 04/29/2025 15:53:56 04/03/20 25 04/03/2025 US, obste tric, bioph ysica l profi le + non-s tress test No observ ation record ed. [email or web address] [place] [address], [place], [address], 04/03/2025 18:27:14 04/03/20 25 04/03/2025 US, obste tric, bioph ysica l profi le + non-s tress test No observ ation record ed. [email or web address] [address], [place], [address], 04/04/2025 18:59:15 04/03/20 25 04/03/2025 non-s tress test No observ ation record ed. OLIVIA [place] [address], [place], [address], 04/04/2025 10:33:24 04/03/20 non-s tress test No observ ation record ed. [email or web address] [place] [address], [place], [address], 04/03/2025 11:35:14 04/10/20 25 04/11/2025 US, obste tric, bioph ysica l profi le + non-s tress test No observ ation record ed. [email or web address] [place] [address], [place], [address], 04/11/2025 12:31:31 04/10/20 25 04/10/2025 US, obste tric, bioph ysica l profi le + non-s tress test No observ ation record ed. [email or web address] [address], [place], [address], 04/10/2025 14:16:39 04/10/20 25 04/10/2025 non-s tress test No observ ation record ed. [email or web address] [place] [address], [place], [address], 04/10/2025 14:16:00 04/10/20 non-s tress test No observ ation record ed. [email or web address] [place] [address], [place], [address], 04/10/2025 14:16:00 04/18/20 25 04/18/2025 US, obste tric, bioph ysica l profi le + non-s tress test No observ ation record ed. [email or web address] [place] [address], [place], [address], 04/18/2025 18:03:02 04/18/2004/18/2025 US, obste tric, bioph ysica l profi le + non-s tress test No observ ation record ed. [email or web address] [address], [place], [address], 04/21/2025 01:47:31 04/18/2004/18/2025 non-s tress test No observ ation record ed. [email or web address] [place] [address], [place], [address], 04/19/2025 16:02:09 04/18/20 non-s tress test No observ ation record ed. [place] [address], [place], [address], 04/18/2025 17:19:05 04/25/2004/25/2025 US, obste tric, follo w-up No observ ation record ed. [email or web address] [place] [address], [place], [address], 04/25/2025 18:00:59 04/25/2004/25/2025 US, obste tric, bioph ysica l profi le + non-s tress test No observ ation record ed. [email or web address] [place] [address], [place], [address], 04/25/2025 18:00:41 04/25/2004/25/2025 US, obste tric, follo w-up No observ ation record ed. [address], [place], [address], 04/25/2025 19:59:27 04/25/2004/26/2025 non-s tress test No observ ation record ed. [email or web address] [place] [address], [place], [address], 04/26/2025 12:42:17 04/25/20 non-s tress test No observ ation record ed. [place] [address], [place], [address], 04/25/2025 18:05:07 05/01/2005/01/2025 US, obste tric, bioph ysica l profi le + non-s tress test No observ ation record ed. [email or web address] [place] [address], [place], [address], 05/01/2025 11:27:23 05/01/20 25 05/01/2025 US, obste tric, bioph ysica l profi le + non-s tress test No observ ation record ed. [email or web address] [address], [place], [address], 05/01/2025 21:15:25 05/02/20 25 05/02/2025 non-s tress test No observ ation record ed. OLIVIA [place] [address], [place], [address], 05/02/2025 17:00:00 05/02/20 25 05/01/2025 non-s tress test No observ ation record ed. [email or web address] Not Available 2024 15:39:46 05/02/20 non-s tress test No observ ation record ed. [email or web address] Not Available 2024 15:39:46 05/08/2005/08/2025 US, obste tric, bioph ysica l profi le + non-s tress test No observ ation record ed. [email or web address] [place] [address], [place], [address], 05/08/2025 13:28:33 05/08/2005/08/2025 US, obste tric, bioph ysica l profi le + non-s tress test No observ ation record ed. [email or web address] [address], [place], [address], 05/08/2025 10:25:28 05/08/2005/08/2025 non-s tress test No observ ation record ed. [address], [place], [address], 05/08/2025 11:20:04 05/08/20 non-s tress test No observ ation record ed. [address], [place], [address], 05/08/2025 11:21:52 Result Notes None recorded. Problems Name Problem SNOMED Code Status Onset Date Resolution Date Notes Provider Name and Address Organization Details Recorded Time 04882177 Active 2024 [facility] [place] [facility] 10:29:46 Chronic hypertens ion complicat ing AND/OR reason for care during 91664625 Active 2024 - elevated BP in office at 24 weeks, asymptomat ic - on chart review, multiple elevated BP outside of - baseline labs ordered - plan for 32 week testing JACK RHODES MD [address], [place], [address], [facility] 5 11:42:33 Problem Notes None recorded. Procedures Surgical History Date Name Laterality Status Provider Name and Address Organization Details Recorded Time 5 SIS completed JACK RHODES MD [address], [place], [address], [facility] 08/15/2024 22:58:22 4 Date of Last Pap Smear completed [facility] 07/27/2024 14:07:04 3 Dilation and Curettage completed [facility], [...] Updated DateTime 05/01/2025 157.48 cm 38 kg/m2 81778.21 g 136/93 mm[Hg] Radha Wesley [facility] 05/01/2025 10:38:51 Date Recorded Body weight Body mass index (BMI) Body height Body height Body mass index (BMI) Body weight Systolic And Diastolic Systolic And Diastolic Provider Name and Address Organization Details Last Updated DateTime 24947.3 977 g 38.4 kg/m2 157.48 cm 157.48 cm 38.4 kg/m2 37865.4 g 134/90 mm[Hg] 134/90 mm[Hg] Norma Goodman [facility] 11:19:04 Social History Question Answer Notes LastModified by Organizat ion Details LastModified Time How Many Years Have You Consumed Alcohol? 7 [email or web address] Information not available 04/27/2024 Are You Blind Or Do You Have Difficulty Seeing? No Information not available 04/27/2024 What Is Your Level Of Caffeine Consumption? Heavy [email or web address] Information not available 04/27/2024 How Much Tobacco Do You Chew? None [email or web address] Information not available 04/27/2024 In The 14 Days Before Symptom Onset, Have You Had Close Contact With A Laboratory-confirme d COVID-19 While That Case Was Ill? No [email or web address] Information n ot available 04/27/2024 In The 14 Days Before Symptom Onset, Have You Had Close Contact With A Person Who Is Under Investigation For COVID-19 While That Person Was Ill? No [email or web address] Information not available 04/27/2024 Have You Been To An Area Known To Be High Risk For COVID-19? No [email or web address] Information not available 04/27/2024 Are You Deaf Or Do You Have Serious Difficulty Hearing? No [email or web address] Information not available 04/27/2024 What Type Of Diet Are You Following? REGULAR [email or web address] Information n ot available 04/27/2024 What Is The Highest Grade Or Level Of School You Have Completed Or The Highest Degree You Have Received? [id number] [email or web address] Information not available 04/27/2024 Are There Any Guns Present In Your Home? Yes Information not available 04/27/2024 Do You Use Protection During Sex? No [email or web address] Information not available 04/27/2024 Do You Use Your Seat Belt Or Car Seat Routinely? Yes [email or web address] Information not available 04/27/2024 Are You Sexually Active? Yes [email or web address] Information not available 07/27/2024 Do You Have Smoke And Carbon Monoxide Detectors In Your Home? Yes [email or web address] Information not available 04/27/2024 How Much Tobacco Do You Smoke? No [email or web address] Information not available 04/27/2024 Do You Use Sunscreen Routinely? Yes [email or web address] Information not available 04/27/2024 Have You Used IV Drugs? No [email or web address] Information not available 04/27/2024 Do You Have Difficulty Walking Or Climbing Stairs? No Information not available 07/27/2024 Sex: Unknown Functional Status Question Answer Note LastModified by Organizat ion Details LastModified Time Do you use any illicit or recreational drugs? No [email or web address] Information not available 04/27/2024 What is your level of alcohol consumption? Moderate Information not available 04/27/2024 Are you currently employed? Yes [email or web address] Information not available 07/27/2024 Are you able to walk independently without assistance or assistive devices? YESWOREST [email or web address] Information not available 04/27/2024 Are you able to care for yourself independently? 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 No [email or web address] Information not available 07/27/2024 What is your exercise level? None [email or web address] Information not available 04/27/2024 Mental Status Question Answer Note LastModified by Organization D etails LastModified Time Do you feel stressed (tense, restless, nervous, or anxious, or unable to sleep at night)? [id number] [email or web address] Information not available 04/27/2024 Family History Relationship Description Onset Age of this Age Resolved Age Notes LastModified by Organization Details LastModified Time Mother Disorder of thyroid gland [email or web address] Not available 2023 09:48:11 Maternal Aunt Disorder of thyroid gland [email or web address] Not available 2023 09:48:11 Brother Hypercholest erolemia [email or web address] Not available 2023 09:48:11 Paternal Grandfather Heart disease [email or web address] Not available 2023 09:48:11 Medical History Condition [...] ICD10 Code Diagnosis IMO Codes Diagnosis Note [id number] JACK RHODES MD [place] [address] [address] 04/27/2024 09:42:19 04/27/2024 10:49:14 Gynecologic examination 80484284 Z01.419 Well woman care- Cervical cancer screening: Pap smear obtained today, will follow up on the results with the patient as they become available- Breast cancer screening: mammogram not indicated- Colon cancer screening: does not qualify- HPV immunizati on: received- STD testing: declined- hereditary cancer screening: does not qualify for testing- discussed PNV while TTC; if no in 1 year could consider workup [id number] JACK RHODES MD [place] [address] [address] 07/27/2024 13:56:24 07/27/2024 14:53:18 Irregular periods 78287931 N92.6 - Differenti al diagnosis of cause [...] considered only after behavioral interventi ons were stephen zimmerman and after partner completes semen analysis.- Following the return of these test results she is asked to return to the office for further discussion of reproducti ve planning and treatment options [id number] JACK RHODES MD [place] [address],[place] [address] 08/11/2024 09:26:52 08/11/2024 12:39:53 Female infertility 7076705 N97.9 Z31.9 [id number] JACK RHODES MD [place] [address],[place] [address] 08/11/2024 09:27:06 08/15/2024 10:55:38 Screening procedure 63358819 Z13.9 Irregular periods 315993 07 N92.6 - Differenti al diagnosis of [...] understand ing, will call clinic with CD1 [id number] Jignesh Méndez MD [place] [address] [address] 09/26/2024 14:14:58 09/26/2024 14:56:03 Uncertain viability of 066162970 O36.80X0 Z3A.01 [id number] JACK RHODES MD [place] [address] [address] 10/10/2024 09:30:41 10/10/2024 09:53:57 [id number] JACK RHODES MD [place] [address],[place] [address] 10/10/2024 09:31:05 10/10/2024 10:34:37 test positive 078651773 Z32.01 1. Exam today within normal limits.2. Ultrasound today confirms GA and viability. EDC . GC/Clamydi a testing done: will f/u as indicated. 4. ACOG guidelines and plan of care for reviewed with patient. All questions answered.5 . Return to office at 12 weeks for new OB visit6. Will need new OB labs at next visit.7. Genetic screening: declined. [id number] Jignesh Méndez MD [place] [address],[place] [address] 11/09/2024 14:23:22 11/09/2024 15:02:09 screening 622053567 Z36.82 Z3A.12 6152400211 [id number] MD Lenore Knight [address],[place] [address] 11/09/2024 14:23:52 11/10/2024 09:40:41 care status 687308715 Z34.82 80107780 [id number] Jignesh Méndez MD [place] [address],[place] [address] 12/12/2024 09:25:05 12/12/2024 10:01:38 care status 473348945 Z34.82 61562674 [id number] MD Lenore Knight [address],[place] [address] 01/02/2025 14:20:56 01/02/2025 15:49:04 screening for malformation 564750904 Z36.3 Z3A.20 0658972810 [id number] MD Lenore Knight [address],[place] [address] 01/02/2025 15:47:07 01/02/2025 17:05:26 Second trimester 73993862 Z34.02 10259644 [id number] JACK RHODES MD [place] [address],[place] [address] 01/30/2025 10:45:05 01/30/2025 11:53:56 Chronic hypertension complicating AND/OR reason for care during 62422122 O10.919 97148396 - elevated BP in office at 24 weeks, asymptomat ic- on chart review, multiple elevated BP outside of - baseline labs ordered- plan for 32 week testing Gestation period, 24 weeks 461685199 Z3A.24 7268071 [id number] JACK RHODES MD [place] [address],[place] [address] 02/27/2025 10:45:43 02/27/2025 11:13:36 Chronic hypertension complicating AND/OR reason for care during 42241945 O10.919 70870123 - elevated BP in office at 24 weeks, asymptomat ic- on chart review, multiple elevated BP outside of - baseline labs wnl- plan for 32 week testing Gestation period, 28 weeks 96016045 Z3A.28 8409133 [id number] JACK RHODES MD [place] [address],[place] [address] 03/15/2025 16:38:05 03/15/2025 17:14:56 Chronic hypertension complicating AND/OR reason for care during 99910798 O10.919 54065764 - elevated BP in office at 24 weeks, asymptomat ic- on chart review, multiple elevated BP outside of - baseline labs wnl- plan for 32 week testing Gestation period, 30 weeks 64738643 Z3A.30 4122699 [id number] Jignesh Méndez MD [place] [address],[place] [address] 03/20/2025 09:58:19 03/20/2025 11:05:43 care status 601767298 Z34.83 02734796 [id number] Jignesh Méndez MD [place] [address],[place] [address] 03/22/2025 11:42:47 03/23/2025 09:29:30 Bradycardia - baseline heart rate 081968212 O36.8390 71793983 [id number] MD Lenore TUTTLE [address],[place] [address] 03/27/2025 09:48:49 03/27/2025 10:51:07 Essential hypertension complicating AND/OR reason for care during 86356174 O10.013 Z3A.32 4087784 [id number] MD Lenore TUTTLE [address],[place] [address] 03/27/2025 09:49:28 03/27/2025 11:07:30 Body mass index 30+ - obesity 390988191 E66.9 6211969 [id number] MD Lenore TUTTLE [address],[place] [address] 03/27/2025 09:50:14 03/27/2025 11:53:51 Chronic hypertension complicating AND/OR reason for care during 94970905 O10.919 09490757 - elevated BP in office at 24 weeks, asymptomat ic- on chart review, multiple elevated BP outside of - baseline labs wnl- continue weekly testing Gestation period, 32 weeks 9715145 Z3A.32 8547484 - continue PNV [id number] MD Lenore TUTTLE [address],[place] [address] 04/03/2025 09:55:34 04/03/2025 10:38:49 Essential hypertension complicating AND/OR reason for care during 98876937 O10.013 Z3A.33 3892551 [id number] MD Lenore TUTTLE [address],[place] [address] 04/03/2025 09:55:54 04/03/2025 11:56:41 Maternal obesity complicating , childbirth and the puerperium, antepartum 6279784160 07 O99.210 E66.09 6079451679 [id number] MD Lenore TUTTLE [address],[place] [address] 04/03/2025 09:56:10 04/04/2025 09:07:40 Chronic hypertension complicating AND/OR reason for care during 68214747 O10.919 82555925 - elevated BP in office at 24 weeks, asymptomat ic- on chart review, multiple elevated BP outside of - baseline labs wnl- continue weekly testing Gestation period, 33 weeks 07882540 Z3A.33 4650679 [id number] MD Lenore TUTTLE [address],[place] [address] 04/10/2025 09:22:39 04/10/2025 09:54:16 Chronic hypertension complicating AND/OR reason for care during 45754356 O10.913 Z3A.34 16206613 - elevated BP in office at 24 weeks, asymptomat ic- on chart review, multiple elevated BP outside of - baseline labs wnl- continue weekly testing [id number] JACK RHODES MD [place] [address],[place] [address] 04/10/2025 09:22:56 04/10/2025 10:42:15 Maternal obesity complicating , childbirth and the puerperium, antepartum 3883755813 07 O99.210 3865837823 [id number] JACK RHODES MD [place] [address],[place] [address] 04/10/2025 09:23:13 04/10/2025 11:14:34 Chronic hypertension complicating AND/OR reason for care during 40562185 O10.919 86974699 - elevated BP in office at 24 weeks, asymptomat ic- on chart review, multiple elevated BP outside of - baseline labs wnl- continue weekly testing Gestation period, 34 weeks 37210906 Z3A.34 8806737 [id number] MD Lenore TUTTLE [address],[place] [address] 04/18/2025 16:15:32 04/18/2025 16:57:27 Essential hypertension complicating AND/OR reason for care during 17529186 O10.013 Z3A.35 2477631 [id number] JACK RHODES MD [place] [address],[place] [address] 04/18/2025 16:15:58 04/18/2025 17:20:30 Maternal obesity complicating , childbirth and the puerperium, antepartum 6215211307 07 O99.210 E66.09 9978507081 [id number] JACK RHODES MD [place] [address],[place] [address] 04/18/2025 16:16:23 04/18/2025 17:59:57 Chronic hypertension complicating AND/OR reason for care during 18644945 O10.919 66414699 - elevated BP in office at 24 weeks, asymptomat ic- on chart review, multiple elevated BP outside of - baseline labs wnl- continue weekly testing Gestation period, 35 weeks 00394771 Z3A.35 1016570 [id number] JACK RHODES MD [place] [address],[place] [address] 04/25/2025 16:17:33 04/25/2025 16:57:53 Essential hypertension complicating AND/OR reason for care during 86646916 O10.013 Z3A.36 4709337 [id number] JACK RHODES MD [place] [address],[place] [address] 04/25/2025 16:17:57 04/25/2025 18:03:35 Chronic hypertension complicating AND/OR reason for care during 52918989 O10.919 35965117 - elevated BP in office at 24 weeks, asymptomat ic- on chart review, multiple elevated BP outside of - baseline labs wnl- continue weekly testing [id number] JACK RHODES MD [place] [address],[place] [address] 04/25/2025 16:18:16 04/26/2025 08:25:30 Chronic hypertension complicating AND/OR reason for care during 16653504 O10.919 23334132 - elevated BP in office at 24 weeks, asymptomat ic- on chart review, multiple elevated BP outside of - baseline labs wnl- continue weekly testing Gestation period, 36 weeks 39552658 Z3A.36 1252489 - continue PNV [id number] JACK RHODES MD [place] [address],[place] [address] 05/01/2025 09:56:29 05/01/2025 10:24:07 Essential hypertension complicating AND/OR reason for care during 81447865 O10.013 Z3A.37 8386435 [id number] JACK RHODES MD [place] [address],[place] [address] 05/01/2025 09:57:00 05/02/2025 12:08:45 Chronic hypertension complicating AND/OR reason for care during 79414309 O10.913 91640807 - elevated BP in office at 24 weeks, asymptomat ic- on chart review, multiple elevated BP outside of - baseline labs wnl- continue weekly testing [id number] JACK RHODES MD [place] [address],[place] [address] 05/01/2025 09:57:27 05/01/2025 16:16:48 Chronic hypertension complicating AND/OR reason for care during 75941037 O10.919 79899559 - elevated BP in office at 24 weeks, asymptomat ic- on chart review, multiple elevated BP outside of - baseline labs wnl- continue weekly testing Gestation period, 37 weeks 52558786 Z3A.37 0464840 - continue pNV [id number] JACK RHODES MD [place] [address],[place] [address] 05/08/2025 10:00:06 05/08/2025 10:25:13 Maternal hypertension 270475537 O16.3 O10.913 Z3A.38 4573970 [id number] JACK RHODES MD [place] [address],[place] [address] 05/08/2025 10:00:43 05/08/2025 11:33:40 Chronic hypertension complicating AND/OR reason for care during 93762779 O10.919 24652040 [id number] MD Lenore TUTTLE [address],[place] [address] 05/08/2025 10:00:57 05/08/2025 11:42:56 Chronic hypertension complicating AND/OR reason for care during 79141880 O10.919 88590910 - induction today at 38 weeks Gestation period, 38 weeks 39987327 Z3A.38 3756265 - continue PNV Health Concerns Section Related Observation LastModified by Organization Detai ls LastModified Time None Recorded Concern Status LastModified by Organization Details LastModified Time None Recorded Advance Directives Directive None Recorded Payers Insurance Date Sequence Insurance Name Policy Number Policy Garcia Covered Member ID Garcia Member ID Guarantor Name 05/07/2025 1 [employer] [id number] Tito Tamayo [id number] Leelee Tamayo Notes Date Note Type Note Provider Name and Address Organization Details Recorded Time 05/01/2025 text/html Generic HPI TemplateReported by Patient JACK RHODES MD [address], [place], [address], [facility] 05/01/2025 16:14:24 05/08/2025 text/html Generic HPI TemplateReported by Patient JACK RHODES MD [address], [place], [address], [facility] 05/08/2025 11:41:09 OBGyn Episode Ob Episode Information Episode Created Date Number of Fetuses Patient Bloodtype Patient rh Status Prepregnancy Weight lbs Domestic Partner Domestic Partner Phone Father Name Heeler Machine Status 04/27/20 24 1 CLOSED Fetus Data First Name Last Name Admitted to NICU Weight (g) Sex Living Outcome Pediatric Complications Fetus ID Race Codes Race Delivery Type , Spontane ous 21919 Harsh Calculation Initial Harsh Date Initial Exam [...] Domestic Partner Domestic Partner Phone Father Name Heeler Machine Status 10/11/19 25 1 A Positive 194 OPEN Fetus Data First Name Last Name Admitted to NICU Weight (g) Sex Living Outcome Pediatric Complications Fetus ID Race Codes Race Delivery Type [id number] Problems Problem Notes arrhythmia noted LD - Referr al faxed to [facility] 03/23 Problem Name Start Date End Date Resolution Snomed Code Not e Chronic hypertension complicating AND/OR reason for care during 01/30/2025 08496745 - elevated BP i n office at [...] Weight in lbs Pre/Post Dialysis Refused Weight 194.085805184182 BP Diastolic BP Location Tested BP Systolic [...] Type Weight in lbs Pre/Post Dialysis Refused 197.359437222705 BP Diastolic BP Location Tested BP Systolic [...] Type Weight in lbs Pre/Post Dialysis Refused 198.913266897620 BP Diastolic BP Location Tested BP Systolic [...] Weight in lbs Pre/Post Dialysis Refused Weight 198.565445085463 BP Diastolic BP Location Tested BP Systolic [...] Weight in lbs Pre/Post Dialysis Refused Weight 202.843890968788 BP Diastolic BP Location Tested BP Systolic [...] Weight in lbs Pre/Post Dialysis Refused Weight 202.837229859481 BP Diastolic BP Location Tested BP Systolic [...] Weight in lbs Pre/Post Dialysis Refused Weight 205.781748999986 BP Diastolic BP Location Tested BP Systolic [...] Type Weight in lbs Pre/Post Dialysis Refused 204.125384240670 BP Diastolic BP Location Tested BP Systolic [...] Weight in lbs Pre/Post Dialysis Refused Weight 203.693345235020 BP Diastolic BP Location Tested BP Systolic BP Type 87 L arm 135 sitting Fetus Heart Rate Present Fetus Movement A Yes Comments Flowsheet Date 03/27/2025 Hopson Score Blood Edema Fundus Height Fundus Units Glucose Ketones Leukocytes Nitrite Labor Signs Protein Cervic Dilation Cervic Effacement Cervic Station Type Weight in lbs Pre/Post Dialysis Refused 203.06571991051 BP Diastolic BP Location Tested BP Systolic [...] Weight in lbs Pre/Post Dialysis Refused Weight 207.286106411541 BP Diastolic BP Location Tested BP Systolic [...] Type Weight in lbs Pre/Post Dialysis Refused 206.354820885054 BP Diastolic BP Location Tested BP Systolic BP Type 85 R arm 128 sitting Fetus Heart Rate Present Fetus Movement Comments Flowsheet Date 04/10/2025 Hopson Score Blood Edema Fundus Height Fundus Units Glucose Ketones Leukocytes Nitrite Labor Signs Protein Cervic Dilation Cervic Effacement Cervic Station Type Weight in lbs Pre/Post Dialysis Refused Weight 206.956725596196 BP Diastolic BP Location Tested BP Systolic [...] Type Weight in lbs Pre/Post Dialysis Refused 206.665408264828 BP Diastolic BP Location Tested BP Systolic [...] Type Weight in lbs Pre/Post Dialysis Refused 209.173856829030 BP Diastolic BP Location Tested BP Systolic BP Type 89 L arm 131 sitting Fetus Heart Rate Present Fetus Movement A Yes Comments Flowsheet Date 04/25/2025 Hopson Score Blood Edema Fundus Height Fundus Units Glucose Ketones Leukocytes Nitrite Labor Signs Protein Cervic Dilation Cervic Effacement Cervic Station Type Weight in lbs Pre/Post Dialysis Refused Weight 209.237163395627 BP Diastolic BP Location Tested BP Systolic [...] Weight in lbs Pre/Post Dialysis Refused Weight 208.645376210745 BP Diastolic BP Location Tested BP Systolic [...] Weight in lbs Pre/Post Dialysis Refused Weight 210.765701746414 BP Diastolic BP Location Tested BP Systolic BP Type 90 L arm 134 sitting Fetus Heart Rate Present Fetus Movement Comments Flowsheet Date 05/08/2025 Hopson Score Blood Edema Fundus Height Fundus Units Glucose Ketones Leukocytes Nitrite Labor Signs Protein Cervic Dilation Cervic Effacement Cervic Station 0cm 50% -3 Type Weight in lbs Pre/Post Dialysis Refused 210.570041549340 BP Diastolic BP Location Tested BP Systolic BP Type 90 L arm 134 sitting Fetus Heart Rate Present A 135 Fetus Movement A Yes Comments Good movement. No cram ping or bleeding. BP elevated over the weekend, went to [employer], workup normal aside from proteinuria. Asymptomatic aside from swelling. Discussed moving induction to today due to new proteinuria and elevated BPs. Patient agreeable. SVE closed, discussed cytotec induction. BPP 04/21. Patient to present to [facility] for induction. Menstrual History Last [...]
--- NOTE | 2025-05-08 17:24 | P.PNAN_ITS ---
Anes - Eval Pre Procedure Procedure: Labor epidural Date/Time: 05/08/25 17:24 Surgeon: Gabe Preop Diagnosis: Abdominal pain with contractions Pre Op Diagnosis: iol Patient Data Age: 29 Gender: F Height: Weight: Allergies Allergy/AdvReac Type Severity Reaction Status Date / Time No Known Allergies Allergy Verified 05/04/25 14:58 Home Medications ?Medication ?Instructions ?Recorded ?Confirmed ?Type aspirin 81 mg capsule 81 mg PO DAILY 04/29/2504/13 History vits no.130-ferrous fum 1 tablet PO DAILY 05/04/25 History 27 mg iron-folic acid 800 mcg tablet ( Vitamin) : gestational age HCG: positive Patient hx anesthesia problems: none Family hx anesthesia problems: none Results Review: All pre-operative results and documents have been reviewed as part of the pre- operative evaluation. [facility] Past Medical History Medical History (Updated 05/08/25 @ 17:26 by Jamison Jeter Jr., CRNA) Hypertension PCOS (polycystic ovarian syndrome) Overweight (BMI 25.0-29.9) and not yet delivered Family History Family History Father Hyperlipidemia Hypertension Sibling Hypertension Grandparent Cancer Mother Hyperthyroidism Social History Social History Substance use: never Lack of Transportation: No Lack of Food: Never True Current Housing: I Have Housing Concerned About Future Housing: No Difficulty Paying Gas/Electric Bills: No Difficulty Paying for Meds: No Currently Unemployed: No Education: Bachelor's Degree Difficulty w/ Childcare or Family Care: No Spiritual care concerns: No Exam Day of Procedure 05/08/25 17:24 Patient weight: overweight Airway: Mallampati scale class II
[2025-05-08 17:36] LABS: Hematocrit 34.6 % (37.0-47.0); Hemoglobin 10.9 g/dL (12.0-15.0); Immature Granulocyte Percent A 0.5 % (0-0.5); Lymphocytes Absolute Auto 2.07 K/mm3 (0.9-3.2); Mean Corpuscular HGB Conc 31.5 g/dl (32-36); Mean Corpuscular Hemoglobin 25.0 pg (26-34); Mean Corpuscular Volume 79.4 fl (80-100); Nucleated Red Blood Cells Absolute Auto 0.000 K/mm3 (0.0-0.012); Nucleated Red Blood Cells Perc 0.0 % (0.0-0.2); Platelet Count Result 201 k/mm3 (150-375); Red Blood Count 4.36 M/mm3 (4.2-5.4); White Blood Count 8.8 K/mm3 (4.5-10.0)
--- NOTE | 2025-05-08 17:50 | LDADM ---
This patient, Leelee Tamayo, was admitted to Labor/Delivery/Recovery 107 on 05/08/25 at 16:55. Plans for labor, pain management and were discussed with patient. Patient/family oriented to hospital policies and general routines including ID bracelet, bed and alarms, visiting hours, pain management, procedures, bathroom and other care routines, personal items, smoking policy, room service/diet and guest tray routines, security routines, and visiting hours. Patient/Family are encouraged to report perceived risks to care and to ask questions if they do not understand what they are told or what they should do. See OBIX for further documentation.
[2025-05-08 17:57] LABS: Alanine Aminotransferase 12 U/L (6-35); Albumin Level 3.6 g/dL (3.5-5.1); Alkaline Phosphatase 145 U/L (38-126); Anion Gap 9 mmol/L (4-12); Aspartate Amino Transferase 21 U/L (14-36); Bilirubin,Total 0.3 mg/dL (0.2-1.3); Blood Urea Nitrogen 7 mg/dL (7-17); Calcium 8.9 mg/dL (8.4-10.2); Carbon Dioxide 19 mmol/L (22-30); Chloride 105 mmol/L (98-107); Estimated CRCL calculation 131 ml/min; Estimated Glomerular Filt Rate > 60; Glucose 83 mg/dL (65-110); Sodium 133 mmol/L (137-145); Total Protein 6.7 g/dL (6.3-8.2); Uric Acid 4.9 mg/dL (2.5-7.5)
[2025-05-08 18:22] LABS: Syphilis IgG/IgM Antibody Non-Reactive (Nonreactive)
[2025-05-08 18:38] LABS: Potassium 4.0 mmol/L (3.4-5.0)
[2025-05-09] VITALS (299 sets, daily range): BP systolic 118–160; BP diastolic 67–109; PULSE 66–250; TEMP 36.1–37.1; O2SAT 93–100
[2025-05-09] MEDS: ACETAMINOPHEN 500 MG TABLET 1000 MG PO (02:17)
[2025-05-09] MEDS: LACTATED RINGERS 1,000 ML 125 ML IV CONT ×4 (06:41→23:09)
--- NOTE | 2025-05-09 08:38 | PM.IMHP ---
H&P: HPI History of Present Illness Date/Time: 05/09/25 08:38 Chief Complaint: chronic hypertension with superimposed preeclampsia without severe features Narrative: Patient is a 29 year old at 38w3d who presents for induction of labor indicated for chronic hypertension with superimposed preeclampsia without severe features. Her blood pressures have been increasing over the past week and she reports swelling that has increased as well. Otherwise she is asymptomatic. She met criteria for superimposed preeclampsia without severe features by proteinuria. Her has been otherwise uncomplicated. Review of Systems Review of Systems: All systems reviewed & are unremarkable except as noted in HPI and below PMFSH Past Medical History Medical History Hypertension PCOS (polycystic ovarian syndrome) Overweight (BMI 25.0-29.9) and not yet delivered Family History Family History Father Hyperlipidemia Hypertension Sibling Hypertension Grandparent Cancer Mother Hyperthyroidism Social History Social History Smoking status: Never smoker Substance use: never Lack of Transportation: No Lack of Food: Never True Current Housing: I Have Housing Concerned About Future Housing: No Difficulty Paying Gas/Electric Bills: No Difficulty Paying for Meds: No Currently Unemployed: No Education: Bachelor's Degree Difficulty w/ Childcare or Family Care: No Spiritual care concerns: No Meds Home Medications and Allergies Home Medications ?Medication ?Instructions ?Recorded ?Confirmed ?Type aspirin 81 mg capsule 81 mg PO DAILY 04/29/25 05/04/25 History vits no.130-ferrous fum 1 tablet PO DAILY 04/29/25 05/04/25 History 27 mg iron-folic acid 800 mcg tablet ( Vitamin) Allergies Allergy/AdvReac Type Severity Reaction Status Date / Time No Known Allergies Allergy Verified 05/08/25 17:50 Vital Signs Vital Signs - 24 hr 05/08/25 17:31 05/08/25 17:46 05/08/25 17:49 Temperature Pulse Rate 83 84 Blood Pressure 142/101 H 144/93 H Pulse Oximetry Oxygen Delivery Room Air 05/08/25 18:07 05/08/25 18:16 05/08/25 18:21 Temperature 97.6 F Pulse Rate 95 Blood Pressure 146/97 H Pulse Oximetry 100 99 Oxygen Delivery 05/08/25 18:26 05/08/25 18:31 05/08/25 18:36 Temperature Pulse Rate 85 Blood Pressure 134/80 Pulse Oximetry 99 99 99 Oxygen Delivery 05/08/25 18:41 05/08/25 18:46 05/08/25 18:51 Temperature Pulse Rate Blood Pressure Pulse Oximetry 99 100 99 Oxygen Delivery 05/08/25 18:58 05/08/25 19:03 05/08/25 19:08 Temperature Pulse Rate Blood Pressure Pulse Oximetry 100 100 100 Oxygen Delivery 05/08/25 19:13 05/08/25 19:18 05/08/25 19:23 Temperature Pulse Rate Blood Pressure Pulse Oximetry 100 100 99 Oxygen Delivery 05/08/25 19:28 05/08/25 19:34 05/08/25 19:50 Temperature Pulse Rate Blood Pressure Pulse Oximetry 100 100 99 Oxygen Delivery 05/08/25 19:55 05/08/25 20:00 05/08/25 20:05 Temperature Pulse Rate Blood Pressure Pulse Oximetry 100 100 100 Oxygen Delivery 05/08/25 20:10 05/08/25 20:15 05/08/25 20:26 Temperature 97.4 F L Pulse Rate Blood Pressure Pulse Oximetry 100 100 100 Oxygen Delivery 05/08/25 20:27 05/08/25 20:31 05/08/25 20:36 Temperature Pulse Rate 89 84 Blood Pressure 152/108 H 157/100 H Pulse Oximetry 97 99 Oxygen Delivery 05/08/25 20:41 05/08/25 20:46 05/08/25 20:51 Temperature Pulse Rate Blood Pressure Pulse Oximetry 98 97 95 Oxygen Delivery 05/08/25 20:56 05/08/25 21:01 05/08/25 21:06 Temperature Pulse Rate 88 Blood Pressure 134/75 Pulse Oximetry 98 99 98 Oxygen Delivery 05/08/25 21:11 05/08/25 21:16 05/08/25 21:21 Temperature Pulse Rate Blood Pressure Pulse Oximetry 97 97 97 Oxygen Delivery 05/08/25 21:26 05/08/25 21:31 05/08/25 21:39 Temperature Pulse Rate 89 Blood Pressure 138/71 Pulse Oximetry 97 96 97 Oxygen Delivery 05/08/25 21:44 05/08/25 21:49 05/08/25 21:54 Temperature Pulse Rate Blood Pressure Pulse Oximetry 99 99 98 Oxygen Delivery 05/08/25 21:59 05/08/25 22:01 05/08/25 22:04 Temperature Pulse Rate 84 Blood Pressure 146/92 H Pulse Oximetry 98 100 Oxygen Delivery 05/08/25 22:09 05/08/25 22:14 05/08/25 22:27 Temperature Pulse Rate Blood Pressure Pulse Oximetry 99 100 99 Oxygen Delivery 05/08/25 22:30 05/08/25 22:32 05/08/25 22:37 Temperature 97.6 F Pulse Rate Blood Pressure Pulse Oximetry 98 99 Oxygen Delivery 05/08/25 22:42 05/08/25 22:47 05/08/25 22:52 Temperature Pulse Rate Blood Pressure Pulse Oximetry 99 98 98 Oxygen Delivery 05/08/25 22:57 05/08/25 23:01 05/08/25 23:02 Temperature Pulse Rate 77 Blood Pressure 147/100 H Pulse Oximetry 98 99 Oxygen Delivery 05/08/25 23:11 05/08/25 23:16 05/08/25 23:21 Temperature Pulse Rate Blood Pressure Pulse Oximetry 100 98 97 Oxygen Delivery 05/08/25 23:26 05/08/25 23:31 05/08/25 23:36 Temperature Pulse Rate Blood Pressure Pulse Oximetry 100 98 98 Oxygen Delivery 05/08/25 23:36 05/08/25 23:41 05/08/25 23:44 Temperature Pulse Rate Blood Pressure Pulse Oximetry 99 97 99 Oxygen Delivery 05/08/25 23:49 05/08/25 23:54 05/08/25 23:59 Temperature Pulse Rate Blood Pressure Pulse Oximetry 97 97 96 Oxygen Delivery 05/09/25 00:00 05/09/25 00:01 05/09/25 00:04 Temperature 97.8 F Pulse Rate 78 76 Blood Pressure 152/98 H Pulse Oximetry 97 Oxygen Delivery 05/09/25 01:22 05/09/25 02:00 05/09/25 02:39 Temperature 98.2 F Pulse Rate 92 Blood Pressure 152/98 H Pulse Oximetry 98 Oxygen Delivery 05/09/25 02:44 05/09/25 02:49 05/09/25 02:54 Temperature Pulse Rate Blood Pressure Pulse Oximetry 97 96 97 Oxygen Delivery 05/09/25 02:59 05/09/25 03:08 05/09/25 03:09 Temperature Pulse Rate Blood Pressure Pulse Oximetry 97 99 96 Oxygen Delivery 05/09/25 03:14 05/09/25 03:19 05/09/25 03:24 Temperature Pulse Rate Blood Pressure Pulse Oximetry 98 96 97 Oxygen Delivery 05/09/25 03:29 05/09/25 03:30 05/09/25 03:31 Temperature Pulse Rate 75 74 Blood Pressure 152/98 H Pulse Oximetry 94 Oxygen Delivery 05/09/25 03:34 05/09/25 03:39 05/09/25 03:46 Temperature Pulse Rate Blood Pressure Pulse Oximetry 98 97 99 Oxygen Delivery 05/09/25 03:51 05/09/25 03:56 05/09/25 04:00 Temperature 98.5 F Pulse Rate Blood Pressure Pulse Oximetry 97 97 Oxygen Delivery 05/09/25 04:01 05/09/25 04:02 05/09/25 04:06 Temperature Pulse Rate 78 Blood Pressure 128/68 Pulse Oximetry 97 100 Oxygen Delivery 05/09/25 04:11 05/09/25 04:14 05/09/25 04:19 Temperature Pulse Rate Blood Pressure Pulse Oximetry 100 98 99 Oxygen Delivery 05/09/25 04:24 05/09/25 04:29 05/09/25 04:33 Temperature Pulse Rate Blood Pressure Pulse Oximetry 100 100 98 Oxygen Delivery 05/09/25 04:38 05/09/25 05:41 05/09/25 05:46 Temperature Pulse Rate 82 Blood Pressure 145/90 H Pulse Oximetry 100 99 100 Oxygen Delivery 05/09/25 05:51 05/09/25 06:08 05/09/25 06:13 Temperature Pulse Rate Blood Pressure Pulse Oximetry 100 99 99 Oxygen Delivery 05/09/25 06:18 05/09/25 06:23 05/09/25 06:28 Temperature Pulse Rate Blood Pressure Pulse Oximetry 100 100 99 Oxygen Delivery 05/09/25 06:33 05/09/25 06:38 05/09/25 07:01 Temperature Pulse Rate 68 Blood Pressure 140/94 H Pulse Oximetry 100 97 Oxygen Delivery 05/09/25 08:01 05/09/25 08:33 Temperature Pulse Rate 84 Blood Pressure 143/90 H Pulse Oximetry 100 Oxygen Delivery Exam Const: General: comfortable and no acute distress Eyes: General: appearance normal, both eyes and all related structures Resp: Effort & Inspection: normal respiratory effort Cardio: Rate: regular rate : Other: SVE /-2, narayan bulb placed without difficulty and inflated to 50cc Skin: General skin exam: normal color Extrem: General: normal to inspection Psych: Mental Status: mental status grossly normal H&P: Results Labs Labs: Short CBC 05/08/25 Range/Units 17:20 WBC 8.8 (4.5-10.0) K/mm3 Hgb 10.9 L (12.0-15.0) g/dL Hct 34.6 L (37.0-47.0) % Plt Count 201 (150-375) k/mm3 BMP 05/08/25 17:20 Sodium 133 L Potassium 4.0 Chloride 105 Carbon Dioxide 19 L BUN 7 Creatinine 0.58 L Glucose 83 Calcium 8.9 Liver Function 05/08/25 Range/Units 17:20 Total Bilirubin 0.3 (0.2-1.3) mg/dL AST 21 (14-36) U/L ALT 12 (6-35) U/L Alkaline Phosphatase 145 H (38-126) U/L Albumin 3.6 (3.5-5.1) g/dL Assessment and Plan Assessment and plan (1) Chronic hypertension affecting : Code(s): O10.919 - Unspecified pre-existing hypertension complicating , unspecified trimester Status: Acute Assessment and Plan: - chronic hypertension with superimposed preeclampsia without severe features - asymptomatic aside from swelling - mild range BP since admission - labs wnl - s/p cytotec; Narayan bulb placed this AM without issue, plan to start low dose pitocin - SVE /-2 - fhr category I
--- NOTE | 2025-05-09 10:03 | WPDANESEPPF ---
Anes - Initial Pre Proc Eval Date/Time: 05/09/25 10:03 Surgeon: Hugo Bernal MD Pre Op Diagnosis: iol Patient Data Age: 29 Gender: F Height: 1.57 m Weight: 95.5 kg Last Vital Signs Temp 36.9 C 05/09/25 04:00 Pulse 95 05/09/25 10:01 BP 140/85 05/09/25 10:01 Pulse Ox 98 05/09/25 09:59 O2 Del Method Room Air 05/08/25 17:49 Allergies Allergy/AdvReac Type Severity Reaction Status Date / Time No Known Allergies Allergy Verified 05/08/25 17:50 Home Medications ?Medication ?Instructions ?Recorded ?Confirmed ?Type aspirin 81 mg capsule 81 mg PO DAILY 04/29/25 05/04/25 History vits no.130-ferrous fum 1 tablet PO DAILY 04/29/25 05/04/25 History 27 mg iron-folic acid 800 mcg tablet ( Vitamin) Laboratory Tests 05/08/25 05/08/25 05/08/25 17:20 17:20 18:46 WBC 8.8 K/mm3 (4.5-10.0) RBC 4.36 M/mm3 (4.2-5.4) Hgb 10.9 L g/dL (12.0-15.0) Hct 34.6 L % (37.0-47.0) MCV 79.4 L fl (80-100) MCH 25.0 L pg (26-34) MCHC 31.5 L g/dl (32-36) RDW 14.6 H % (11.5-14.5) Plt Count 201 k/mm3 (150-375) MPV 11.5 H fl (7.4-10.4) Immature Gran % (Auto) 0.5 % (0-0.5) Neut % (Auto) 65.3 % (45.5-73.1) Lymph % (Auto) 23.5 % (18.3-44.2) [place] % (Auto) 8.8 H % (2.6-8.5) Eos % (Auto) 1.4 % (0-4.4) Baso % (Auto) 0.5 % (0.2-1.2) Lymph # (Auto) 2.07 K/mm3 (0.9-3.2) [place] # (Auto) 0.8 H K/mm3 (0.1-0.6) Eos # (Auto) 0.1 K/mm3 (0-0.3) Baso # (Auto) 0.0 K/mm3 (0.0-0.1) Abs Immat Gran (auto) 0.04 H K/mm3 (0.00-0.031) Absolute Neuts (auto) 5.8 K/mm3 (1.3-6.7) Absolute Nucleated RBC 0.000 K/mm3 (0.0-0.012) Nucleated RBC % 0.0 % (0.0-0.2) Sodium 133 L mmol/L (137-145) Potassium 4.0 mmol/L (3.4-5.0) Chloride 105 mmol/L (98-107) Carbon Dioxide 19 L mmol/L (22-30) Anion Gap 9 mmol/L (4-12) BUN 7 mg/dL (7-17) Creatinine 0.58 L mg/dL (0.7-1.0) Estim Creat Clear Calc 131 ml/min Estimated GFR > 60 (59 - ) Glucose 83 mg/dL (65-110) Uric Acid Cancelled 4.9 mg/dL (2.5-7.5) Calcium 8.9 mg/dL (8.4-10.2) Total Bilirubin 0.3 mg/dL (0.2-1.3) AST 21 U/L (14-36) ALT 12 U/L (6-35) Alkaline Phosphatase 145 H U/L (38-126) Total Protein 6.7 g/dL (6.3-8.2) Albumin 3.6 g/dL (3.5-5.1) Syphilis IgG/IgM Ab Non-reactive (Nonreactive) Blood Type A Positive Antibody Screen Negative : gestational age HCG: positive Patient hx anesthesia problems: none Family hx anesthesia problems: none Results Review: All pre-operative results and documents have been reviewed as part of the pre-operative evaluation. [facility] Past Medical History Medical History Hypertension PCOS (polycystic ovarian syndrome) Overweight (BMI 25.0-29.9) and not yet delivered Family History Family History Father Hyperlipidemia Hypertension Sibling Hypertension Grandparent Cancer Mother Hyperthyroidism Social History Social History Smoking status: Never smoker Substance use: never Lack of Transportation: No Lack of Food: Never True Current Housing: I Have Housing Concerned About Future Housing: No Difficulty Paying Gas/Electric Bills: No Difficulty Paying for Meds: No Currently Unemployed: No Education: Bachelor's Degree Difficulty w/ Childcare or Family Care: No Spiritual care concerns: No Anes - Eval Final PreProcedure Day of Procedure 05/09/25 10:03 Patient weight: obese Heart: regular rate and rhythm Lungs: clear to auscultation Neurological: alert and oriented ASA classification: III Emergent: no Anesthetic plan: proceed Anesthesia type and monitoring: regional epidural and standard monitoring Results Review: All pre-operative results and documents have been reviewed as part of the pre-operative evaluation. Informed Consent: The patient's anesthetic plan and its attendant risks and benefits were discussed with the patient/family/POA. Questions were solicited and answers provided to the satisfaction of the patient/family/POA.
[2025-05-09] MEDS: OXYTOCIN 30 UNITS/NS 500 ML 30 UNITS/500 ML BAG IV CONT (10:13)
--- NOTE | 2025-05-09 13:04 | PM.OBPNLAB ---
Pain Control Date/time seen: 05/09/25 13:04 Pain control: epidural Pelvic Exam Dilation (cm): 4 Effacement (%): 70 station: -2 Amniotic membrane status: Ruptured (with clear fluid) Contractions Monitor mode: External Contraction frequency: 3 Contraction pattern: Regular Contraction intensity: Moderate Status status: Category l Assessment and Plan Pitocin rate (mU/min): 6 Assessment: induction ongoing Plan: continuous present management
[2025-05-09] MEDS: PROPRANOLOL HCL 20 MG TABLET PO (22:12)
[2025-05-10] VITALS (377 sets, daily range): BP systolic 113–163; BP diastolic 61–105; PULSE 25–138; TEMP 36.6–37.7; O2SAT 86–100
[2025-05-10] MEDS: CALCIUM CARBONATE (TUMS) 500 MG (200 MG ELEMENTAL) 1000 MG PO (01:59)
[2025-05-10] MEDS: LACTATED RINGERS 1,000 ML 125 ML IV CONT ×2 (07:08→15:14)
--- NOTE | 2025-05-10 08:05 | PM.OBPNLAB ---
Pain Control Date/time seen: 05/10/25 08:05 Pain control: epidural Pelvic Exam Dilation (cm): 5 Effacement (%): 70 station: -2 Amniotic membrane status: Ruptured Comments: Caput, midline position Contractions Monitor mode: External Contraction frequency: 4 Contraction pattern: Regular Contraction intensity: Moderate Status status: Category l Assessment and Plan Assessment: induction ongoing Comments: Discussed lack of cervical progress in the past 12 hours with intermittently adequate contractions despite position changes, PO propranolol, and pitocin washout. Now increasing pitocin. Discussed continuing to try to get to consistently adequate contractions vs proceeding with PCS. FHR category I and no evidence of intraamniotic infection, no contraindications to continuing PORSCHE. Patient would like to continue position changes, repeat PO propranolol dose, and increasing pitocin. Will reassess in 4 hours and proceed with PCS at that time if cervix is unchanged.
[2025-05-10] MEDS: PROPRANOLOL HCL 20 MG TABLET PO (08:18)
[2025-05-10] MEDS: AMPICILLIN SODIUM 2 GM in SODIUM CHLORIDE 0.9% IV 100 ML 200 ML IVPB (12:40)
[2025-05-10] MEDS: AMPICILLIN SODIUM 1 GM in SODIUM CHLORIDE 0.9% IV 50 ML 100 ML IVPB ×2 (16:01→20:30)
--- NOTE | 2025-05-10 17:15 | PM.OBPNLAB ---
Pain Control Date/time seen: 05/10/25 17:15 Pain control: epidural (slightly more pain on left side) Pelvic Exam Dilation (cm): 7 Effacement (%): 90 station: -1 Amniotic membrane status: Ruptured Contractions Monitor mode: External Contraction pattern: Irregular Contraction intensity: Moderate Status status: Category l Assessment and Plan Pitocin rate (mU/min): 26 Assessment: active labor Plan: continuous present management Comments: head much more well applied, putting pressure on cervix continuously and pushing through cervix with contractions; FHR category I; patient would like to continue trial of labor at this time; ampicillin for prolonged ROM
[2025-05-10] MEDS: SODIUM CHLORIDE 0.9% IV 300 ML 600 ML I-UTERINE (17:36)
[2025-05-10] MEDS: OXYTOCIN 30 UNITS/NS 500 ML 30 UNITS/500 ML BAG IV CONT (18:18)
--- NOTE | 2025-05-10 21:47 | P.PCNOB_ITS ---
OB - Vaginal Delivery Note Procedure Delivery date: 05/10/25 Events: Chronic Hypertension and Preeclampsia w/o severe features Induction method: Per Misoprostol Protocol Delivery augmentation: Rupture of Membranes and Pitocin (with narayan bulb) Route of delivery: Episiotomy description: None Laceration Description: Perineal - 1st Degree Delivery repair: vicryl Specimen: No Quantitative Blood Loss (ml): 150 Anesthesia type: Epidural Disposition: Floor Complications: No immediate complications Narrative: See H&P and notes for details on patient's admission and labor. She progressed to complete cervical dilation and at the appropriate time began pushing. With adequate expulsive efforts by the mother, the baby's head was delivered without difficulty. Nuchal cord was present x1. The baby's right shoulder was anterior and delivered under the pubic symphysis without difficulty. The posterior shoulder and the rest of the baby delivered without difficulty. The umbilical cord was doubly clamped and cut after 120 seconds of delayed cord clamping. Care of the infant was then assumed by the nursing staff. [place] Baby Date of : 05/10/25 Time of : 21:29 Gestational Age by Date: 38 Infant gender: Female Weight (pounds): 7 Weight (ounces): 9 presentation: vertex position: Right Occiput Anterior Placenta delivery description: Expressed Cord Vessel Description: 3 Vessels, Nuchal Cord, Reduced and Delayed Cord Clamping
[2025-05-10] MEDS: OXYTOCIN 30 UNITS/NS 500 ML 30 UNITS/500 ML BAG 125 UNITS IV CONT (22:01)
[2025-05-11] VITALS (7 sets, daily range): BP systolic 130–139; BP diastolic 85–95; PULSE 81–101; RESP 15–20; TEMP 36.3–37.4; O2SAT 99–100
--- NOTE | 2025-05-11 02:24 | OBPPTRN ---
Patient transferred to post room #290 via wheelchair. Support person present. Oriented to unit, room, information board, rooming in, admission packet and security measures. Patient verbalizes understanding. Patient arrived on unit at 2353 on 05/10/25.
[2025-05-11 05:45] LABS: Hematocrit 26.1 % (37.0-47.0); Hemoglobin 8.1 g/dL (12.0-15.0)
--- NOTE | 2025-05-11 07:10 | P.PNOB_ITS ---
OB - PN: Subj Subjective Date/time seen: 05/11/25 07:10 Interval history: pp day 1 doing well bottle feeding OB - PN: Obj Data Labs 05/11/25 03:48 05/08/25 17:20 Labs: Laboratory Results - last 24 hr 05/11/25 03:48 Hgb 8.1 L Hct 26.1 L OB - PN A/P Plan day: 1 Plan: routine care Time Spent With Patient Time: Total time spent is greater than 50% in coordination of care (as documented) at patient's floor/unit and/or counseling patient: Review of Systems 2 Review of Systems: All systems reviewed & are unremarkable except as noted in HPI and below Exam 2 Const: General: cooperative, healthy appearing and comfortable Chest: Chest palpation & inspection: normal inspection of the chest Resp: Effort & Inspection: normal respiratory effort Cardio: Rate: regular rate Skin: General skin exam: normal color Neuro: General: patient oriented x3
[2025-05-11] MEDS: DOCUSATE SODIUM 100 MG CAPSULE PO ×2 (08:53→16:40)
[2025-05-11] MEDS: IBUPROFEN 600 MG TABLET PO (19:45)
[2025-05-12 03:15] VITALS: BP 137/94
--- NOTE | 2025-05-12 07:32 | P.PNOB_ITS ---
OB - PN: Subj Subjective Date/time seen: 05/12/25 07:32 Interval history: pp day 2 doing well bottle feeding OB - PN: Obj Data Labs 05/11/25 03:48 05/08/25 17:20 OB - PN A/P Plan day: 2 Plan: routine care and discharge home Time Spent With Patient Time: Total time spent is greater than 50% in coordination of care (as documented) at patient's floor/unit and/or counseling patient: Review of Systems 2 Review of Systems: All systems reviewed & are unremarkable except as noted in HPI and below Exam 2 Const: General: cooperative, healthy appearing and comfortable Chest: Chest palpation & inspection: normal inspection of the chest Resp: Effort & Inspection: normal respiratory effort GI: Other: soft Back/Spine/Pelvis: Back: no CVA tenderness Skin: General skin exam: normal color Neuro: General: patient oriented x3 Extrem: Right lower extremity: normal to inspection Left lower extremity: n ormal to inspection
[2025-05-12 08:20] VITALS: BP 140/90; PULSE 88; RESP 18; TEMP 36.9; O2SAT 98
[2025-05-12] MEDS: DOCUSATE SODIUM 100 MG CAPSULE PO (09:27)
--- NOTE | 2025-05-12 10:47 | PM.OBDSVD ---
DS: Admitting Diagnosis Discharge Date 05/12/25 Admitting Diagnosis IOL, GHTN DS: Discharge Diagnosis Discharge Diagnosis (1) Vaginal delivery: Code(s): O80 - Encounter for full-term uncomplicated delivery Status: Acute OB - DS: Summary OB Procedures : None OB Procedures Intrapartum: Spontaneous Vag Delivery OB Procedures: : None Peripartum Data Laceration Description: Perineal - 1st Degree Episiotomy description: None Time Spent with Patient Time attestation: Total time spent providing and/or coordinating discharge services: Discharge Plan Discharge Attending physician on discharge: Jignesh Méndez Discharging Clinician: Elodia Gandhi Patient Disposition: Home Activity: pelvic rest Diet: regular Patient Instructions: Antibiotic Form Patient Language: Icelandic Stand Alone Forms: General Discharge Information Follow-up/Referrals: Hugo Bernal MD [Physician, [employer]] - 1 Week Discharge Medications: Continued Vitamin 27 mg iron- 800 mcg tablet 1 tablet PO DAILY aspirin 81 mg capsule 81 mg PO DAILY Date of admission: 05/08/25 16:55 Primary Care Provider: PHYSICIAN,HITTING COACH Admitting Provider: Hugo Bernal Attending physician on admission: Hugo Bernal Condition: Stable
[2025-05-13 11:30] VITALS: BP 154/92; PULSE 84; RESP 18; TEMP 36.9; O2SAT 100
== END 2025-05-12 11:55 | disposition home or self-care (01) | DRG 807 ==
LOC: ANHLDR 16:58 → ANHOB2 05-10 23:53
PROVIDERS: Admitting Provider Obstetrics & Gynecology; Visit Provider Obstetrics & Gynecology
DX: O11.4 Pre-existing hypertension with pre-eclampsia, complicating childbirth (principal); Z37.0 Single live birth; Z3A.38 38 weeks gestation of pregnancy; O69.81X0 Labor and delivery complicated by cord around neck, without compression, not applicable or unspecified; O70.0 First degree perineal laceration during delivery; O42.12 Full-term premature rupture of membranes, onset of labor more than 24 hours following rupture
CPT/HCPCS: 36415; 80053; 84550; 85014; 85018; 85025; 86593; 86850; 86900; 86901; A9270; J0290; J1200; J2590; J2795; J7030; J7120